=== PATIENT | male | born 1955 | race Caucasian/White ===

== ENCOUNTER 2016-12-21 17:41 | Emergency (ER) | payer BC ==
[~2016-12-21] VITALS: Ht 177.8 cm; Wt 101.5 kg
[~2016-12-21 17:41] MED LIST changes: -ASPI81TA28 PO; -CALC625T13 PO; -CIPR-255 PO; -MELO15TA4 PO; -OMEP20TA PO; -OPTIRAY 320 IV PRN; -OXYC-57 PO; -OXYC1TAB3 PO; -SILD100T PO
[2016-12-21 17:45] VITALS: TEMP 37; Ht 177.8 cm; Wt 101.5 kg
[2016-12-21] MEDS ORDERED: SODIUM CHLORIDE 0.9% 1000ML 1,000 ML IV STA (17:58)
[2016-12-21 18:08] LABS: BASO % 0.7 %; BASO ABS # 0.06 K/uL (0-0.2); COMPLETE YES; EOS % 5.1 %; HEMATOCRIT 44.4 % (42-52); IG% 0.1 %; LYMPH ABS # 2.33 K/uL (1.2-3.4); MEAN CORPUSCULAR HEMOGLOBIN 30.8 pg (25-34); MEAN CORPUSCULAR HGB CONC 35.8 g/dl (32-36); MEAN PLATELET VOLUME 9.5 fL (7.4-10.4); MONO % 8.8 %; NEUT % 56.3 %; PLATELET COUNT 211 K/uL (130-400); RED BLOOD COUNT 5.16 M/uL (4.7-6.1); WHITE BLOOD COUNT 8.04 K/uL (4.8-10.8)
[2016-12-21] MEDS ORDERED: OMEP20TA PO (18:20)
[2016-12-21] MEDS ORDERED: SILD100T PO (18:20)
[2016-12-21] MEDS ORDERED: CALC625T13 PO (18:20)
[2016-12-21] MEDS ORDERED: ASPI81TA28 PO (18:20)
[2016-12-21] MEDS ORDERED: MELO15TA4 PO (18:20)
[2016-12-21 18:26] LABS: ALT/SGPT 53 U/L (12-78); BLOOD UREA NITROGEN 20 mg/dl (7-18); BUN/CREATININE RATIO 14.4 (10-20); C-REACTIVE PROTEIN < 0.29 mg/dl (0-0.29); CALCIUM 9.5 mg/dl (8.5-10.1); CARBON DIOXIDE 25 mmol/L (21-32); CHLORIDE 106 mmol/L (98-107); GLUCOSE 92 mg/dl (70-99); POTASSIUM 4.1 mmol/L (3.5-5.1); SODIUM 140 mmol/L (136-145)
[2016-12-21 18:27] LABS: URINE APPEARANCE CLEAR (CLEAR); URINE BILIRUBIN NEG (NEG); URINE COLOR YELLOW; URINE EPITHELIAL CELL AUTO 0-5 /lpf (0-5); URINE NITRITE NEG (NEG); URINE SPECIFIC GRAVITY > 1.045 (1.000-1.030); UROBILINOGEN NEG (NEG); ZZUR CULT IF INDIC CLEAN CATCH NO
[2016-12-21 18:29] LABS: ALKALINE PHOSPHATASE 65 U/L (45-117); AST/SGOT 43 U/L (15-37)
[2016-12-21 18:59] LABS: MANUAL MICROSCOPIC REQUIRED? NO; REVIEW REQ? NO
--- NOTE | 2016-12-21 19:09 | DIAGNOSTIC IMAGING REPORT ---
CT SCAN OF THE LUMBAR SPINE WITHOUT IV CONTRAST CLINICAL HISTORY: Back pain and right lower extremity radiculopathy. COMPARISON STUDY: Abdominal CT performed the same day 12/21/2016. TECHNIQUE: CT scan of the lumbar spine is performed from the lower thoracic spine to the sacrum. Images are reviewed in the axial, sagittal, and coronal planes. IV contrast was not administered for this examination. FINDINGS: The skeletal structures are well mineralized. There is no evidence of fracture or malalignment. Vertebral body height and alignment are preserved throughout the lumbar spine. No lytic or blastic lesions are seen. The transverse and spinous processes are intact. There is no evidence of spondylolysis. Mild to moderate facet arthropathy is seen from L4 to S1. Tiny anterior osteophytes are seen throughout. There is advanced degenerative disc space narrowing at L5-S1 with associated endplate sclerosis. A small posterior disc osteophyte complex is identified at this level eccentric to the left. This likely causes left-sided subarticular stenosis. Mild degenerative disc space narrowing is seen at the remaining lumbar levels. A disc herniation is suspected at L3-L4 with a superiorly extruded fragment. This likely contributes to significant acquired compromise of the central canal. A small posterior disc bulge is suggested at L4-L5. The visualized sacrum and bony pelvis appear intact. The paraspinous soft tissues are normal as imaged. A cyst is partially noted in the lower pole of the right kidney. No retroperitoneal lymphadenopathy is seen. See report of abdominal CT performed the same day for detailed intra-abdominal findings. IMPRESSION: 1. No acute bony abnormality is seen involving the lumbar spine. 2. A disc herniation is suspected at L3-L4 with a superiorly extruded fragment. This contributes to acquired compromise of the central canal. 3. Degenerative change at additional levels as above. Dictated: 12/21/2016 6:26 PM Transcribed: 12/21/2016 7:08 PM ARTUR_Shima Electronically signed by: Abdullahi Carlton M.D. 12/21/2016 7:13 PM Dictated Date/Time: 12/21/2016 6:26 PM
[2016-12-21] MEDS ORDERED: CIPR-255 PO (20:35)
[2016-12-21] MEDS ORDERED: OXYC-57 PO (20:35)
--- NOTE | 2016-12-21 20:37 | EMERGENCY ROOM VISIT NOTE ---
History Report prepared by Tati: Alise Baron Under the Supervision of: Dr. Solomon Rose D.O. First contact with patient: 17:49 Chief Complaint: FLANK PAIN Stated Complaint: PAIN ON R SIDE History of Present Illness The patient is a 61 year old male who presents to the Emergency Room with complaints of persistent right lower quadrant abdominal pain which started 2 weeks ago. The patient currently rates his discomfort as a 9/10. He was in the hospital today for a CT and came to the ED after he was told there was a stone in his appendix. He reports that his pain has been worse in the last 2 or 3 days. He states the pain sometimes spreads down to the front of his leg. He mentions that this could be because he has been walking abnormally because the pain worsens when he walks. The patient also states that going up or down stairs is very difficult for him due to the pain. When the doctor palpated the flank earlier today, he experienced a lot of pain. He also reports that for month he had pain down the back of his legs every time he got up and walked. He denies any injury. Source of History: patient Onset: 2 weeks Position: abdomen (RLQ) Symptom Intensity: 9/10 Timing: other (persistent) Modifying Factors (Worsening): other (walking) Note: Pt reports right leg pain. Review of Systems See HPI for pertinent positives & negatives. A total of 10 systems reviewed and were otherwise negative. Past Medical & Surgical Medical Problems: (1) No Known Active Medical Problems Family History Patient reports no known family medical history. Social History Smoking Status: Never Smoker Marital Status: Housing Status: lives with family Occupation Status: employed Current/Historical Medications Scheduled Aspirin (Aspirin Ec), 81 MG PO DAILY Calcium Polycarbophil (Fiber Tabs), 625 MG PO DAILY Ciprofloxacin Hcl (Cipro), 500 MG PO BID Fish Oil ([place]-3), 1 CAP PO DAILY Levothyroxine Sodium (Synthroid), 100 MCG PO DAILY Lisinopril (Zestril), 10 MG PO DAILY Meloxicam (Mobic), 15 MG PO DAILY Multivitamin (Multivitamin), 1 TAB PO DAILY Omeprazole (Omeprazole), 20 MG PO DAILY Scheduled PRN Oxycodone/Acetaminophen 5MG/325MG (Percocet 5MG/325MG), 1 TAB PO Q6H PRN for Pain Sildenafil Citrate (Viagra), 50-100 MG PO UD PRN for Prior To [place] Allergies Coded Allergies: No Known Allergies (Unverified , 05/14/14) Physical Exam Vital Signs Date Time Temp Pulse Resp B/P Pulse Ox O2 Delivery O2 Flow Rate FiO2 12/21/16 19:45 74 18 151/107 95 Room Air 12/21/16 17:45 37.0 89 18 150/91 94 Room Air Physical Exam CONSTITUTIONAL/VITAL SIGNS: Reviewed / noted above. GENERAL: Non-toxic in appearance. INTEGUMENTARY: Warm, dry, and [place]. HEAD: Normocephalic. EYES: without scleral icterus or trauma. ENT/OROPHARYNX: clear and moist. LYMPHADENOPATHY/NECK: Is supple without lymphadenopathy or meningismus. RESPIRATORY: Lungs clear and equal. CARDIOVASCULAR: Regular rate and rhythm. GI/ABDOMEN: Soft. Mild tenderness to RLQ. No organomegaly or pulsatile mass. No rebound or guarding. Normal bowel sounds. EXTREMITIES: Warm and well perfused. BACK: No CVA tenderness. NEUROLOGICAL: Intact without focal deficits. PSYCHIATRIC: normal affect. MUSCULOSKELETAL: Normally developed with good muscle tone. Medical Decision & Procedures ER Provider Diagnostic Interpretation: Radiology results as stated below per my review and radiologist interpretation: CT SCAN OF THE LUMBAR SPINE WITHOUT IV CONTRAST CLINICAL HISTORY: Back pain and right lower extremity radiculopathy. COMPARISON STUDY: Abdominal CT performed the same day 12/21/2016. TECHNIQUE: CT scan of the lumbar spine is performed from the lower thoracic spine to the sacrum. Images are reviewed in the axial, sagittal, and coronal planes. IV contrast was not administered for this examination. FINDINGS: The skeletal structures are well mineralized. There is no evidence of fracture or malalignment. Vertebral body height and alignment are preserved throughout the lumbar spine. No lytic or blastic lesions are seen. The transverse and spinous processes are intact. There is no evidence of spondylolysis. Mild to moderate facet arthropathy is seen from L4 to S1. Tiny anterior osteophytes are seen throughout. There is advanced degenerative disc space narrowing at L5-S1 with associated endplate sclerosis. A small posterior disc osteophyte complex is identified at this level eccentric to the left. This likely causes left-sided subarticular stenosis. Mild degenerative disc space narrowing is seen at the remaining lumbar levels. A disc herniation is suspected at L3-L4 with a superiorly extruded fragment. This likely contributes to significant acquired compromise of the central canal. A small posterior disc bulge is suggested at L4-L5. The visualized sacrum and bony pelvis appear intact. The paraspinous soft tissues are normal as imaged. A cyst is partially noted in the lower pole of the right kidney. No retroperitoneal lymphadenopathy is seen. See report of abdominal CT performed the same day for detailed intra-abdominal findings. IMPRESSION: 1. No acute bony abnormality is seen involving the lumbar spine. 2. A disc herniation is suspected at L3-L4 with a superiorly extruded fragment. This contributes to acquired compromise of the central canal. 3. Degenerative change at additional levels as above. Dictated: 12/21/2016 6:26 PM Transcribed: 12/21/2016 7:08 PM Robert Electronically signed by: Abdullahi Carlton M.D. 12/21/2016 7:13 PM Dictated Date/Time: 12/21/2016 6:26 PM Laboratory Results 12/21/16 18:00 Red Blood Count 5.16, Mean Corpuscular Volume 86.0, Mean Corpuscular Hemoglobin 30.8, Mean Corpuscular Hemoglobin Concent 35.8, Mean Platelet Volume 9.5, Neutrophils (%) (Auto) 56.3, Lymphocytes (%) (Auto) 29.0, Monocytes (%) (Auto) 8.8, Eosinophils (%) (Auto) 5.1, Basophils (%) (Auto) 0.7, Neutrophils # (Auto) 4.52, Lymphocytes # (Auto) 2.33, Monocytes # (Auto) 0.71, Eosinophils # (Auto) 0.41, Basophils # (Auto) 0.06 12/21/16 18:00 Test 12/21/16 18:00 12/21/16 18:15 White Blood Count 8.04 K/uL (4.8-10.8) Red Blood Count 5.16 M/uL (4.7-6.1) Hemoglobin 15.9 g/dL (14.0-18.0) Hematocrit 44.4 % (42-52) Mean Corpuscular Volume 86.0 fL (80-100) Mean Corpuscular Hemoglobin 30.8 pg (25-34) Mean Corpuscular Hemoglobin Concent 35.8 g/dl (32-36) Platelet Count 211 K/uL (130-400) Mean Platelet Volume 9.5 fL (7.4-10.4) Neutrophils (%) (Auto) 56.3 % Lymphocytes (%) (Auto) 29.0 % Monocytes (%) (Auto) 8.8 % Eosinophils (%) (Auto) 5.1 % Basophils (%) (Auto) 0.7 % Neutrophils # (Auto) 4.52 K/uL (1.4-6.5) Lymphocytes # (Auto) 2.33 K/uL (1.2-3.4) Monocytes # (Auto) 0.71 K/uL (0.11-0.59) Eosinophils # (Auto) 0.41 K/uL (0-0.5) Basophils # (Auto) 0.06 K/uL (0-0.2) RDW Standard Deviation 40.2 fL (36.4-46.3) RDW Coefficient of Variation 12.8 % (11.5-14.5) Immature Granulocyte % (Auto) 0.1 % Immature Granulocyte # (Auto) 0.01 K/uL (0.00-0.02) Erythrocyte Sedimentation Rate 14 mm/hr (0-14) Anion Gap 9.0 mmol/L (3-11) Est Creatinine Clear Calc Drug Dose 64.5 ml/min Estimated GFR () 61.5 Estimated GFR (Non- 53.1 BUN/Creatinine Ratio 14.4 (10-20) Calcium Level 9.5 mg/dl (8.5-10.1) Total Bilirubin 1.5 mg/dl (0.2-1) Direct Bilirubin 0.3 mg/dl (0-0.2) Aspartate Amino Transf (AST/SGOT) 43 U/L (15-37) Alanine Aminotransferase (ALT/SGPT) 53 U/L (12-78) Alkaline Phosphatase 65 U/L (45-117) C-Reactive Protein < 0.29 mg/dl (0-0.29) Total Protein 8.2 gm/dl (6.4-8.2) Albumin 4.1 gm/dl (3.4-5.0) Lipase 199 U/L (73-393) Urine Color YELLOW Urine Appearance CLEAR (CLEAR) Urine pH 5.0 (4.5-7.5) Urine Specific [place] > 1.045 (1.000-1.030) Urine Protein NEG (NEG) Urine Glucose (UA) NEG (NEG) Urine Ketones NEG (NEG) Urine Occult Blood NEG (NEG) Urine Nitrite NEG (NEG) Urine Bilirubin NEG (NEG) Urine Urobilinogen NEG (NEG) Urine Leukocyte Esterase NEG (NEG) Urine WBC (Auto) 0 /hpf (0-5) Urine RBC (Auto) 0-4 /hpf (0-4) Urine Hyaline Casts (Auto) 0 /lpf (0-5) Urine Epithelial Cells (Auto) 0-5 /lpf (0-5) Urine Bacteria (Auto) NEG (NEG) Laboratory results as stated above per my review. Medications Administered Medications (Trade) Dose Ordered Sig/Maritza Route Start Time Stop Time Status Last Admin Dose Admin Sodium Chloride (Nss 1000ml) 1,000 ml @ 999 mls/hr Q1H1M STAT IV 12/21/16 17:58 12/21/16 18:58 DC 12/21/16 17:58 999 MLS/HR ED Course 1750: Previous medical records were reviewed. The patient was evaluated in room C2. A complete history and physical examination was performed. 1758: NSS 1000 ml @ 999 mls/hr IV. 1805: I discussed the patient's case with Dr. Kenny, General Surgery, [facility]. He recommends checking the white blood cell count and considering outpatient antibiotics. 2037: I reevaluated the patient. He is resting comfortably. I discussed the results and treatment plan with him. He verbalized complete understanding and agreement. He will be discharged home. Medical Decision Differential considered: pancreatitis, hepatitis, or acute cholecystitis, AAA, UTI, pyelonephritis, kidney stones, appendicitis, diverticulitis, shingles, bowel obstruction mesenteric ischemia, intussusception,hernia, testicular torsion. This is a 61-year-old male who presents to the ED with a chief complaint of flank abdominal pain for the past couple of weeks. He states over the past several days it has been worse. The patient reports that he had an outpatient CT scan today and was sent to the ED after this. CT scan noted a thickened appendix base and contrast versus appendicolith in the appendix. There are no other significant findings on the CT scan. The patient reports that he had some tenderness to palpation there earlier in the day when seen by the PCP. On my exam he has some mild tenderness in the right lower quadrant but there is also some mild tenderness to other areas of the abdomen. He reports that sometimes the pain radiates down the front of the right leg. He has no other significant complaints at this time. He does report increased pain with ambulation and certain movements/activities. His white blood cell count was normal. He is not anemic. Sedimentation rate and CRP were normal. Lipase is normal. Urine did not show infection. CT scan of the lumbar spine reveals an L3-L4 disc herniation with central canal stenosis. The patient was told results the test. He was felt to be stable for discharge. I did speak with Dr. Villa about the patient/abd. CT report, He did suggest placing the patient on Cipro. Outpatient follow-up recommended. [place] Drug Monitoring Program Search Results: no issues identified Consults Time Called: 1802 Consulting Physician: Dr. Kenny - General Surgery, [facility] Returned Call: [phone] We discussed the patient's case. He recommends checking the white blood cell count and considering outpatient antibiotics. Impression Primary Impression: Abdominal pain Additional Impression: Herniated lumbar intervertebral disc Scribe Attestation The scribe's documentation has been prepared under my direction and personally reviewed by me in its entirety. I confirm that the note above accurately reflects all work, treatment, procedures, and medical decision making performed by me. Departure Information Dispostion Home / Self-Care Prescriptions Oxycodone/Acetaminophen 5MG/325MG (PERCOCET 5MG/325MG) Tab 1 TAB PO Q6H Y for Pain, #20 TAB Prov: Solomon Rose D.O. 12/21/16 Ciprofloxacin Hcl (CIPRO) 500 Mg Tab 500 MG PO BID, #14 TAB Prov: Solomon Rose D.O. 12/21/16 Referrals Kedar Kenny M.D. Patient Instructions Abdominal Pain, My [facility] Additional Instructions Follow-up with your PCP and surgery, Dr. Kenny for recheck. Cipro as prescribed. Percocet as prescribed. No driving within 6 hours of use. Do not take additional Tylenol while taking Percocet. Problem Qualifiers
[2016-12-21] MEDS ORDERED: KETOROLAC TROMETHAMINE 30 MG/ML VIAL IV STA (20:43)
[2016-12-21] MEDS ORDERED: CIPROFLOXACIN 500 MG TAB PO STA (20:43)
[2016-12-21] MEDS ORDERED: PERCOCET HOME PACK PO ONE (20:45)
[2016-12-21 20:56] VITALS: BP 148/87; PULSE 79; O2SAT 98
[2016-12-28] MEDS ORDERED: OXYC1TAB3 PO (14:11)
== END 2016-12-21 21:00 | disposition home or self-care (01) ==
LOC: C.EDB 17:41 → C.EDC 21:00
DX: R10.30 Lower abdominal pain, unspecified (principal); M51.26 Other intervertebral disc displacement, lumbar region; Z79.82 Long term (current) use of aspirin; Z79.899 Other long term (current) drug therapy

== ENCOUNTER → 2016-12-21 | Outpatient (CLI) | payer BC ==
[~2016-12-21] MED LIST: ASPI81TA28 PO; CALC625T13 PO; CIPR-255 PO; LEVO100T PO; LISI-461 PO; MELO15TA3 PO; MELO15TA4 PO; MULT-506 PO; OMEG10007 PO; OMEP20TA PO; OPTIRAY 320 IV PRN; OXYC-57 PO; OXYC1TAB3 PO; PRLSR20 PO; SILD100T PO
--- NOTE | 2016-12-21 15:54 | DIAGNOSTIC IMAGING REPORT ---
CT ABD/PELVIS IV AND ORAL CONT CLINICAL HISTORY: Right lower quadrant/right groin pain. COMPARISON STUDY: None. TECHNIQUE: Following the IV administration of 118 mL of Optiray-320, CT scan of the abdomen and pelvis was performed from the lung bases to the proximal femurs. Images are reviewed in the axial, sagittal, and coronal planes. IV contrast was administered without complication. CT DOSE: 843.85 mGy.cm FINDINGS: Lower chest: There is a 5 mm right lower lobe pulmonary nodule. This contains a punctate calcification. There is a 16 mm opacity within the lingula, possibly representing focal atelectatic changes of a neoplasm could appear similar. A three-month follow-up CT scan is recommended. Liver: There is hepatic steatosis. No focal hepatic masses are visualized. Gallbladder: Unremarkable. Spleen: Normal in size and attenuation. Pancreas: Unremarkable. Adrenal glands: Unremarkable. Kidneys: The 25 mm lower pole right renal cyst. There is a 2 mm left parapelvic cyst. There is no hydronephrosis. Bowel: Is a fat-containing umbilical hernia. There are no transition zones indicate bowel obstruction. There is a thickened appendiceal base which contains contrast versus an appendicolith. There are no periappendiceal inflammatory changes. There is colonic diverticulosis. Mild sigmoid wall thickening is likely secondary to peridiverticular muscular hypertrophy. There is no infiltration of the peridiverticular fat. Peritoneum: There is no intraperitoneal free air or abdominal ascites. Vasculature: The abdominal aorta is normal in course and caliber. Adenopathy: None. Pelvic viscera: The bladder, and pelvic viscera are unremarkable. Skeletal structures: No destructive osseous lesions are seen. IMPRESSION: 1. No evidence of bowel obstruction. No evidence of free air 2. Colonic diverticulosis. Sigmoid wall thickening likely secondary to peridiverticular muscular hypertrophy. No evidence of acute diverticulitis 3. Moderate thickening of the appendiceal base but no periappendiceal inflammatory changes. Clinical correlation is advocated 4. Fat-containing umbilical hernia 5. Hepatic steatosis 6. 5 mm right lower lobe pulmonary nodule, an indeterminate 16 mm opacity within the lingula. A three-month follow-up chest CT scan is recommended. Electronically signed by: Jace Keating M.D. 12/21/2016 3:53 PM Dictated Date/Time: 12/21/2016 3:42 PM
--- NOTE | 2016-12-22 06:47 | CONSULTATION REPORT ---
DATE OF CONSULTATION: 12/21/2016 Consultation by phone on 12/21/2016 at approximately 5:15 in the afternoon. SUMMARY: I was called by Dr. Camarillo regarding a patient who had pain in the right groin area radiating down to his right leg. It had been going on for approximately 2-1/2 weeks. He had no GI symptoms. CAT scan was obtained which showed possibility of either appendicolith and contrast in the proximal appendix, but there were no inflammatory changes. At this point, I asked Dr. Camarillo for the patient's vitals which were normal. I asked for his white count, it had not been obtained yet. There was no acute process going on, on a physical basis except what he described. My recommendation to Dr. Camarillo was to proceed with his workup for possibility of some radiculopathy in the lower back and he would obtain followup, to obtain a white count and if that was normal, certainly send the patient home. I would keep him on some Cipro for approximately 1 week just in anticipation possibility of underlying inflammatory process that could develop although this is unlikely that is appendicitis and we will see the patient in the office.
== END | disposition home or self-care (01) ==
LOC: C.CTS 13:21
PROVIDERS: ATTEND Family Medicine
DX: R10.31 Right lower quadrant pain (principal); K57.30 Diverticulosis of large intestine without perforation or abscess without bleeding; R93.5 Abnormal findings on diagnostic imaging of other abdominal regions, including retroperitoneum; K42.9 Umbilical hernia without obstruction or gangrene; K76.0 Fatty (change of) liver, not elsewhere classified; R91.1 Solitary pulmonary nodule

== ENCOUNTER 2016-12-23 18:18 | Emergency (ER) | payer BC ==
[~2016-12-23] VITALS: Ht 177.8 cm; Wt 101.0 kg
[~2016-12-23 18:18] MED LIST changes: +ASPI81TA28 PO; +CALC625T13 PO; +CIPR-255 PO; -MELO15TA3 PO; +MELO15TA4 PO; +OMEP20TA PO; +OXYC-57 PO; -PRLSR20 PO; +SILD100T PO
[2016-12-23 18:22] VITALS: TEMP 37; Ht 177.8 cm; Wt 101.0 kg
[2016-12-23] MEDS ORDERED: ONDANSETRON INJ 2 MG/ML 2 ML VIAL IV STA (19:14)
[2016-12-23] MEDS ORDERED: MoRPHine SULFATE 10 MG/ML CARP/VIAL IV STA ×2 (19:14→21:07)
[2016-12-23] MEDS ORDERED: OPTIRAY 320 IV PRN (19:15)
[2016-12-23 19:36] LABS: BASO % 0.5 %; BASO ABS # 0.05 K/uL (0-0.2); COMPLETE YES; EOS % 6.8 %; HEMATOCRIT 44.9 % (42-52); IG% 0.3 %; LYMPH % 27.4 %; LYMPH ABS # 2.59 K/uL (1.2-3.4); MEAN CELL VOLUME 86.8 fL (80-100); MEAN CORPUSCULAR HEMOGLOBIN 30.2 pg (25-34); MEAN CORPUSCULAR HGB CONC 34.7 g/dl (32-36); MEAN PLATELET VOLUME 10.1 fL (7.4-10.4); MONO % 8.9 %; NEUT % 56.1 %; PLATELET COUNT 227 K/uL (130-400); RED BLOOD COUNT 5.17 M/uL (4.7-6.1); WHITE BLOOD COUNT 9.46 K/uL (4.8-10.8)
[2016-12-23] MEDS ORDERED: LORAZEPAM 0.5 MG TAB SL STA (19:43)
[2016-12-23 19:55] LABS: URINE APPEARANCE CLEAR (CLEAR); URINE BILIRUBIN NEG (NEG); URINE COLOR DK YELLOW; URINE EPITHELIAL CELL AUTO 0-5 /lpf (0-5); URINE NITRITE NEG (NEG); URINE PH 5.5 (4.5-7.5); URINE SPECIFIC GRAVITY 1.026 (1.000-1.030); UROBILINOGEN NEG (NEG); ZZUR CULT IF INDIC CLEAN CATCH NO
[2016-12-23 19:58] LABS: MANUAL MICROSCOPIC REQUIRED? NO; REVIEW REQ? NO
[2016-12-23 20:01] LABS: BUN/CREATININE RATIO 18.8 (10-20); CALCIUM 9.4 mg/dl (8.5-10.1); CREATININE 1.5 mg/dl (0.60-1.40); POTASSIUM 4.2 mmol/L (3.5-5.1)
--- NOTE | 2016-12-23 21:30 | DIAGNOSTIC IMAGING REPORT ---
LUMBAR SPINE MRI HISTORY: lower back pain going into groin TECHNIQUE: Multiplanar multisequence MRI of the lumbar spine was performed without the use of contrast. COMPARISON: Lumbar spine CT 12/21/2016. FINDINGS: For the purpose of the report the L5-S1 disc space will be located on axial image 27 of 30. Alignment and curvature intact. No fracture or subluxation. The conus terminates at the L1 level. There is mild disc space narrowing desiccation at L2-L3, L3-L4, and L4-L5. Moderate to severe disc space narrowing with partial fusion at L5-S1. Moderate facet degenerative changes within the mid to lower lumbar spine with associated osteophytes and small amount of fluid within the facets. Bilateral renal T2 hyperintense, T1 hypointense lesions with the largest on the right measuring 2.6 cm. These likely represent cysts. L1-L2: No significant central canal or neural foraminal narrowing. L2-L3: Small broad-based posterior disc bulge without significant central canal or neural foraminal narrowing. L3-L4: Broad-based posterior disc bulge with an associated central/right paracentral disc extrusion. This disc extrusion demonstrates subligamentous migration superiorly as well as extending into the right neural foramen. This compresses the exiting right L3 nerve root as well as the transiting right L4 nerve root. In conjunction with the disc bulge and facet hypertrophy this results in moderate to severe central canal narrowing with the central canal measuring 6 mm in AP diameter. There is severe right-sided neural foraminal narrowing due to the disc extrusion. Mild left-sided neural foraminal narrowing. L4-L5: Tiny broad-based posterior disc bulge with ligamentum and facet hypertrophy resulting in mild central canal and mild bilateral neural foraminal narrowing. L5-S1: Small focal central disc protrusion demonstrating inferior subligamentous migration. This does not result significant central canal narrowing. There is mild left-sided neural foraminal narrowing due to the facet hypertrophy. IMPRESSION: 1. Broad-based posterior disc bulge at L3-L4 with an associated central/right paracentral disc extrusion. This disc extrusion demonstrates subligamentous migration superiorly as well as extending into the right neural foramen. This compresses the exiting right L3 nerve root as well as the transiting right L4 nerve root. There is also moderate to severe central canal narrowing, severe right-sided neural foraminal narrowing, and mild left-sided neural foraminal narrowing. 2. Small focal central disc protrusion at L5-S1 demonstrating inferior subligamentous migration. This does not result significant central canal narrowing. There is mild left-sided neural foraminal narrowing due to the facet hypertrophy. Electronically signed by: Rajesh Johnson M.D. 12/23/2016 9:28 PM Dictated Date/Time: 12/23/2016 9:18 PM
--- NOTE | 2016-12-23 22:01 | DIAGNOSTIC IMAGING REPORT ---
ABDOMEN AND PELVIS CT WITH IV AND ORAL CONTRAST CT DOSE: 787.45 mGy.cm HISTORY: Right lower quadrant abdominal pain. TECHNIQUE: Multiaxial CT images of the abdomen and pelvis were performed following the use of intravenous and oral contrast. COMPARISON STUDY: Abdomen and pelvis CT 12/21/2016. FINDINGS: Small focal patchy airspace opacity within the lingula has slightly increased in size. This measures 2.4 cm. A 5 mm right lower lobe pulmonary nodule is again noted. No pneumoperitoneum. No pneumatosis. Small fat-containing umbilical hernia. The gallbladder, pancreas, spleen, and adrenal glands are unremarkable. No renal stones or hydronephrosis. Bilateral renal hypodense lesions remain unchanged. The largest within the lower pole the right kidney measures 2.6 cm and is consistent with a cyst. No retroperitoneal lymphadenopathy. Hepatic steatosis. The bladder is unremarkable. Normal caliber appendix. Hyperdense focus at the proximal appendix may represent old barium contrast versus an appendicolith. This remains unchanged. Colonic diverticulosis. Thickening of the sigmoid colon favors muscular hypertrophy. This remains unchanged. No pericolonic fat stranding at this time to suggest an acute process. No bowel wall thickening or obstruction. IMPRESSION: 1. Increase in size in the 2.4 cm focal airspace opacity within the lingula. Therefore, this favors a developing pneumonia. [address] follow-up is recommended to ensure resolution. 2. Otherwise, no significant change compared to the prior study 3. Colonic diverticulosis. 4. Hepatic steatosis. 5. Focal hyperdensity at the base of the appendix may be due to old barium or an appendicolith. No evidence for acute appendicitis. 6. Small fat-containing umbilical hernia. 7. A 5 mm nodule within the right lower lobe. Please refer to the chart below for recommended follow-up. Please refer to below summary of Fleischner criteria recommendations for follow-up of incidental CT nodules (Gabbi Dowd, Guidelines for management of small pulmonary nodules detected on CT scans: A statement from the Fleischner Society, Radiology 237: [phone].) Low Risk Patient: Minimal or no smoking or other known risk factors for malignancy <=4 mm: No follow-up needed. >4-6 mm: Initial follow-up CT at 12 months; if unchanged, no further follow-up. >6-8 mm: Initial follow-up CT at 6-12 months then at 18-24 months if no change. >8 mm: Follow-up CT at \R\3, 9, 24 months, or PET and/or biopsy. High Risk Patient: History of smoking or other known risk factors <=4 mm: Follow-up at 12 months; if unchanged, no further follow-up. >4-6 mm: Initial follow-up CT at 6-12 months then at 18-24 months if no change. >6-8 mm: Initial follow-up CT at 3-6 months then at 9-12 and 24 months if no change. >8 mm: Same as low risk patient. Note: Nodule size measured as average of length and width. Ground glass or partly solid nodules may require longer follow-up to exclude indolent adenocarcinoma. Electronically signed by: Rajesh Johnson M.D. 12/23/2016 10:00 PM Dictated Date/Time: 12/23/2016 9:50 PM
[2016-12-23] MEDS ORDERED: OXYCODONE IR HOME PACK PO ONE (22:45)
[2016-12-23] MEDS ORDERED: OXYC1TAB3 PO (22:48)
[2016-12-23 22:57] VITALS: BP 153/93; PULSE 81; O2SAT 96
--- NOTE | 2016-12-24 00:21 | EMERGENCY ROOM VISIT NOTE ---
History Report prepared by Tati: Kayy Brooks Under the Supervision of: Dr. Beny Burgos D.O. First contact with patient: 18:48 Chief Complaint: FLANK PAIN Stated Complaint: PAIN IN R SIDE DOWN LEG, REFERRED BY PA History of Present Illness The patient is a 61 year old male who presents to the Emergency Room with complaints of worsening right hip, groin, and thigh pain that started two weeks ago. He states that his right leg feels stiff and full like after previous shoulder surgeries. The pain got more severe over the last three days. The patient states that he is unable to lift his right leg secondary to pain. Additionally, he is experiencing numbness and soreness throughout his entire right leg. The patient denies numbness in his groin and urinary symptoms. He adds that he has been experiencing diarrhea ever since he received the dye for the CT scans, but otherwise he has not had any issues moving his bowels. He had an outpatient CT scan of his abdomen done three days ago, which was unremarkable with the exception of possible inflammation at the tip of the appendix. He was started on antibiotics and pain medicine by general surgery. The patient was also seen in the ED 2 days ago and had a CT scan of his lumbar spine done, which revealed a herniated disc at L3-L4. The patient called his PCP this morning to discuss his symptoms and they recommended that he go to the [facility] walk-in clinic. At the clinic, the patient experienced sharp pain in his epigastric region with palpation, so they recommended that he come back into the ED for further evaluation of his gallbladder and appendix. Source of History: patient Onset: two weeks ago Position: leg (right) Quality: other (right hip, groin, and thigh pain) Timing: worsening Associated Symptoms: + diarrhea, + numbness (throughout entire right leg), No urinary symptoms Note: no groin numbness Review of Systems See HPI for pertinent positives & negatives. A total of 10 systems reviewed and were otherwise negative. Past Medical & Surgical Medical Problems: (1) Hypertension (2) Tuberculosis Family History Cancer Diabetes mellitus Heart disease Hypertension Social History Smoking Status: Never Smoker Marital Status: Housing Status: lives with family Occupation Status: employed Current/Historical Medications Scheduled Aspirin (Aspirin Ec), 81 MG PO DAILY Calcium Polycarbophil (Fiber Tabs), 625 MG PO DAILY Ciprofloxacin Hcl (Cipro), 500 MG PO BID Fish Oil ([place]-3), 1 CAP PO DAILY Levothyroxine Sodium (Synthroid), 100 MCG PO DAILY Lisinopril (Zestril), 10 MG PO DAILY Meloxicam (Mobic), 15 MG PO DAILY Multivitamin (Multivitamin), 1 TAB PO DAILY Omeprazole (Omeprazole), 20 MG PO DAILY Scheduled PRN Oxycodone Immediate Rel Tab (Roxicodone Ir), 1-2 TAB PO Q4H PRN for Severe Pain Oxycodone/Acetaminophen 5MG/325MG (Percocet 5MG/325MG), 1 TAB PO Q6H PRN for Pain Sildenafil Citrate (Viagra), 50-100 MG PO UD PRN for Prior To [place] Allergies Coded Allergies: No Known Allergies (Unverified , 05/14/14) Physical Exam Vital Signs Date Time Temp Pulse Resp B/P Pulse Ox O2 Delivery O2 Flow Rate FiO2 12/23/16 22:57 81 18 153/93 96 12/23/16 21:06 97 20 144/100 96 Room Air 12/23/16 18:22 37.0 83 20 174/112 97 Room Air Physical Exam GENERAL: alert, sitting up in bed, disheveled, uncomfortable appearing, well nourished, no distress, non-toxic EYE EXAM: normal conjunctiva, PERRL and EOM's intact OROPHARYNX: no exudate, no erythema, lips, buccal mucosa, and tongue normal and mucous membranes are moist NECK: supple, no nuchal rigidity, no adenopathy, non-tender LUNGS: Clear to auscultation. Normal chest wall mechanics HEART: no murmurs, S1 normal and S2 normal ABDOMEN: abdomen soft, non-tender, normo-active bowel sounds, no masses, no rebound or guarding. BACK: Back is symmetrical on inspection, acute reproducible tenderness in lower lumbar spine tracking to right gluteus, and there is no deformity, no CVA tenderness. SKIN: no rashes and no bruising UPPER EXTREMITIES: upper extremities are grossly normal. LOWER EXTREMITIES: No pitting edema, flexion/extension of hip, knee, ankle, and EHL 5/5 bilaterally, gross sensations intact, patellar and Achilles reflexes 2/ 4. Significant pain with flexion of the right hip. NEURO EXAM: Normal sensorium, cranial nerves II-XII grossly intact, normal speech, no gross weakness of arms Medical Decision & Procedures ER Provider Diagnostic Interpretation: CT and MRI results have been interpreted by the radiologist and reviewed by me. ABDOMEN AND PELVIS CT WITH IV AND ORAL CONTRAST IMPRESSION: 1. Increase in size in the 2.4 cm focal airspace opacity within the lingula. Therefore, this favors a developing pneumonia. [address] follow-up is recommended to ensure resolution. 2. Otherwise, no significant change compared to the prior study 3. Colonic diverticulosis. 4. Hepatic steatosis. 5. Focal hyperdensity at the base of the appendix may be due to old barium or an appendicolith. No evidence for acute appendicitis. 6. Small fat-containing umbilical hernia. 7. A 5 mm nodule within the right lower lobe. Please refer to the chart below for recommended follow-up. Please refer to below summary of Fleischner criteria recommendations for follow-up of incidental CT nodules (Gabbi Dowd, Guidelines for management of small pulmonary nodules detected on CT scans: A statement from the Fleischner Society, Radiology 237: [phone].) Low Risk Patient: Minimal or no smoking or other known risk factors for malignancy <=4 mm: No follow-up needed. >4-6 mm: Initial follow-up CT at 12 months; if unchanged, no further follow-up. >6-8 mm: Initial follow-up CT at 6-12 months then at 18-24 months if no change. >8 mm: Follow-up CT at \R\3, 9, 24 months, or PET and/or biopsy. High Risk Patient: History of smoking or other known risk factors <=4 mm: Follow-up at 12 months; if unchanged, no further follow-up. >4-6 mm: Initial follow-up CT at 6-12 months then at 18-24 months if no change. >6-8 mm: Initial follow-up CT at 3-6 months then at 9-12 and 24 months if no change. >8 mm: Same as low risk patient. Note: Nodule size measured as average of length and width. Ground glass or partly solid nodules may require longer follow-up to exclude indolent adenocarcinoma. Electronically signed by: Rajesh Johnson M.D. 12/23/2016 10:00 PM Dictated Date/Time: 12/23/2016 9:50 PM LUMBAR SPINE MRI IMPRESSION: 1. Broad-based posterior disc bulge at L3-L4 with an associated central/right paracentral disc extrusion. This disc extrusion demonstrates subligamentous migration superiorly as well as extending into the right neural foramen. This compresses the exiting right L3 nerve root as well as the transiting right L4 nerve root. There is also moderate to severe central canal narrowing, severe right-sided neural foraminal narrowing, and mild left-sided neural foraminal narrowing. 2. Small focal central disc protrusion at L5-S1 demonstrating inferior subligamentous migration. This does not result significant central canal narrowing. There is mild left-sided neural foraminal narrowing due to the facet hypertrophy. Electronically signed by: Rajesh Johnson M.D. 12/23/2016 9:28 PM Dictated Date/Time: 12/23/2016 9:18 PM Laboratory Results 12/23/16 19:15 Red Blood Count 5.17, Mean Corpuscular Volume 86.8, Mean Corpuscular Hemoglobin 30.2, Mean Corpuscular Hemoglobin Concent 34.7, Mean Platelet Volume 10.1, Neutrophils (%) (Auto) 56.1, Lymphocytes (%) (Auto) 27.4, Monocytes (%) (Auto) 8.9, Eosinophils (%) (Auto) 6.8, Basophils (%) (Auto) 0.5, Neutrophils # (Auto) 5.31, Lymphocytes # (Auto) 2.59, Monocytes # (Auto) 0.84, Eosinophils # (Auto) 0.64, Basophils # (Auto) 0.05 12/23/16 19:15 Test 12/23/16 00:00 12/23/16 19:15 Urine Color DK YELLOW Urine Appearance CLEAR (CLEAR) Urine pH 5.5 (4.5-7.5) Urine Specific [place] 1.026 (1.000-1.030) Urine Protein TRACE (NEG) Urine Glucose (UA) NEG (NEG) Urine Ketones NEG (NEG) Urine Occult Blood NEG (NEG) Urine Nitrite NEG (NEG) Urine Bilirubin NEG (NEG) Urine Urobilinogen NEG (NEG) Urine Leukocyte Esterase NEG (NEG) Urine WBC (Auto) 1-5 /hpf (0-5) Urine RBC (Auto) 0-4 /hpf (0-4) Urine Hyaline Casts (Auto) 0 /lpf (0-5) Urine Epithelial Cells (Auto) 0-5 /lpf (0-5) Urine Bacteria (Auto) NEG (NEG) White Blood Count 9.46 K/uL (4.8-10.8) Red Blood Count 5.17 M/uL (4.7-6.1) Hemoglobin 15.6 g/dL (14.0-18.0) Hematocrit 44.9 % (42-52) Mean Corpuscular Volume 86.8 fL (80-100) Mean Corpuscular Hemoglobin 30.2 pg (25-34) Mean Corpuscular Hemoglobin Concent 34.7 g/dl (32-36) Platelet Count 227 K/uL (130-400) Mean Platelet Volume 10.1 fL (7.4-10.4) Neutrophils (%) (Auto) 56.1 % Lymphocytes (%) (Auto) 27.4 % Monocytes (%) (Auto) 8.9 % Eosinophils (%) (Auto) 6.8 % Basophils (%) (Auto) 0.5 % Neutrophils # (Auto) 5.31 K/uL (1.4-6.5) Lymphocytes # (Auto) 2.59 K/uL (1.2-3.4) Monocytes # (Auto) 0.84 K/uL (0.11-0.59) Eosinophils # (Auto) 0.64 K/uL (0-0.5) Basophils # (Auto) 0.05 K/uL (0-0.2) RDW Standard Deviation 40.4 fL (36.4-46.3) RDW Coefficient of Variation 12.6 % (11.5-14.5) Immature Granulocyte % (Auto) 0.3 % Immature Granulocyte # (Auto) 0.03 K/uL (0.00-0.02) Anion Gap 10.0 mmol/L (3-11) Est Creatinine Clear Calc Drug Dose 60.0 ml/min Estimated GFR () 56.6 Estimated GFR (Non- 48.8 BUN/Creatinine Ratio 18.8 (10-20) Calcium Level 9.4 mg/dl (8.5-10.1) Total Bilirubin 1.5 mg/dl (0.2-1) Direct Bilirubin 0.3 mg/dl (0-0.2) Aspartate Amino Transf (AST/SGOT) 47 U/L (15-37) Alanine Aminotransferase (ALT/SGPT) 59 U/L (12-78) Alkaline Phosphatase 68 U/L (45-117) Total Protein 8.3 gm/dl (6.4-8.2) Albumin 3.9 gm/dl (3.4-5.0) Lipase 159 U/L (73-393) Laboratory results per my review. Medications Administered Medications (Trade) Dose Ordered Sig/Maritza Route Start Time Stop Time Status Last Admin Dose Admin Morphine Sulfate (MoRPHine SULFATE INJ) 6 mg NOW STAT IV 12/23/16 19:14 12/23/16 19:16 DC 12/23/16 19:31 6 MG Ondansetron HCl (Zofran Inj) 4 mg NOW STAT IV 12/23/16 19:14 12/23/16 19:16 DC 12/23/16 19:32 4 MG Lorazepam (Ativan Tab) 0.5 mg NOW STAT SL 12/23/16 19:43 12/23/16 19:44 DC 12/23/16 19:50 0.5 MG Morphine Sulfate (MoRPHine SULFATE INJ) 6 mg NOW STAT IV 12/23/16 21:07 12/23/16 21:08 DC 12/23/16 21:15 6 MG Oxycodone HCl (Roxicodone Immediate Rel 5MG Home Pack) 1 homepack UD ONCE PO 12/23/16 22:45 12/23/16 22:46 DC 12/23/16 22:57 1 HOMEPACK ED Course ED COURSE: Vital signs were reviewed and showed hypertension. The patients medical record was reviewed The above diagnostic studies were performed and reviewed. ED treatments and interventions as stated above. 1850: The patient was evaluated in room C7. A complete history and physical examination was performed. 1913: Ordered Zofran Inj 4 mg IV, Morphine Sulfate 6 mg IV 1942: Ordered Ativan Tab 0.5 mg SL 2106: Ordered Morphine Sulfate 6 mg IV 2229: I reviewed the patient's case with Dr. Smith - Orthopedic Surgery. He agrees with having the patient follow-up in the office and he will see him on Monday or Monday. 2232: Upon reevaluation, the patient is doing well. I offered admission, but the patient declined and said that he wants to go home. He denied any saddle paraesthesias and weakness in his leg. I discussed my findings with the patient and he understands and agrees with the treatment plan. Based on the patients age, coexisting illnesses, exam and lab findings the decision to treat as an outpatient was made. The patient remained stable while under my care. The patient appeared well at the time of discharge.' 2244: [facility] Medical Decision Differential diagnoses includes but is not limited to gastritis, peptic ulcer disease, GERD, gallbladder disease, pancreatitis, small bowel obstruction, acute coronary syndrome, pericarditis, ischemic bowel, irritable bowel disease, irritable bowel syndrome, appendicitis, diverticulitis, malignancy, hernia, urinary tract infection, torsion, perforation, trauma, infectious. Patient is a 61-year-old male who presents the ER for severe right hip/leg pain. He seen in the ER and his PCPs office for same symptoms. He has had previous CAT scan of his abdomen and lumbar spine. CT of the abdomen showed and abnormality within the appendix and was placed on Cipro and discharged. Along with two pulm nodules which the patient states he is following up with his primary care doctor in regards to as they are the ones that ordered the test originally. He returns tonight for worsening pain in his leg. He has no saddle paresthesias. No trouble moving his bowels or urinating. He denies any weakness in his leg but does note with excessive walking he starts to have extreme pain and has to sit down. He is completely neurologically intact on my exam. Reflexes are intact. MRI of his spine shows a large bulging disc. I do believe this is the cause of symptoms as it is in the correct distribution of the pain on his leg. I discussed the case with Dr. Smith from orthopedics following offering the patient admission but patient declined. Dr. smith agreed to see the patient early Monday. Patient was given oral narcotics. CT of his abdomen pelvis was repeated and was completely unremarkable for any pathology of the appendix. Bilirubin was slightly elevated at 1.[address] I did not pursue this any further especially since he has no pain in the right upper quadrant. I did update him in regards to the pulmonology nodule which he already knew about and is already having followed up by his PCP. The nodule in the lingula area appeared to grow slightly and was read by radiology as more of infectious in etiology. I rediscussed this with the patient and will not place him on any ABX as he has no cough, shortness of breath of chest pain. He is completely asymptomatic. I offered him steroids but he notes he has a previous exposure to TB and is not allowed to take them. Pt will see ortho on Monday if he has no change in his symptoms and already has follow up for the pulm nodules by PCP per patient. I recommended that he return to the ER for any numbness or weakness in his groin or new numbness/weakness in his leg, along with not able to urinate or move his bowels. Discussed with Pt concerning signs and symptoms to watch out for. Pt was instructed to follow up with their PCP and discussed with the patient their option to return to the ED at anytime for persistent or worsening symptoms. The appropriate anticipatory guidance and out-patient management, including indications for return to the emergency department, were explained at length to the patient and understood. Consults Time Called: 2224 Consulting Physician: Dr. Smith - Orthopedic Surgery Returned Call: [phone] I reviewed the patient's case with Dr. Smith - Orthopedic Surgery. He agrees with having the patient follow-up in the office and he will see him on Monday or Monday. Impression Primary Impression: Disc herniation Additional Impressions: Back pain Pulmonary nodules Scribe Attestation The scribe's documentation has been prepared under my direction and personally reviewed by me in its entirety. I confirm that the note above accurately reflects all work, treatment, procedures, and medical decision making performed by me. Departure Information Dispostion Home / Self-Care Prescriptions Oxycodone Immediate Rel Tab (ROXICODONE IR) 5 Mg Tab 1-2 TAB PO Q4H Y for Severe Pain, #24 TAB Prov: Beny Burgos, DO 12/23/16 Referrals Russel Gonzales M.D. (PCP) Forms HOME CARE DOCUMENTATION FORM, IMPORTANT VISIT INFORMATION Patient Instructions Back Pain - [facility], ED Disk Intervertebral Herniated, My [facility] Additional Instructions Please follow up with orthopedics on Monday morning. Their number is listed below. Any worsening of your symptoms, please return to the ED immediately. This includes weakness in your leg, worsening numbness, numbness in her groin, unable to poop/move your bowels, unable to urinate, or any other concerning signs or symptoms from your standpoint. You were given medications during this visit that will inhibit your ability to drive, operate machinery and work. Please do NOT drive, operate machinery or work for the next 12hrs. You were also given a prescription for a narcotic/Oxy IR. While taking this medication you should also not drive, operate machinery and or work. You can take OxyIR in combination with Tylenol and/or Motrin. Do not take it in combination with Percocet. Problem Qualifiers Primary Impression: Disc herniation Spinal region: lumbar Qualified Codes: M51.26 - Other intervertebral disc displacement, lumbar region Additional Impressions: Back pain Back pain location: low back pain Chronicity: unspecified Back pain laterality: unspecified Sciatica presence: unspecified whether sciatica present Qualified Codes: M54.5 - Low back pain
[2016-12-28] MEDS ORDERED: OXYC1TAB3 PO (14:11)
== END 2016-12-23 22:59 | disposition home or self-care (01) ==
LOC: C.EDC 18:28
DX: M51.26 Other intervertebral disc displacement, lumbar region (principal); M51.27 Other intervertebral disc displacement, lumbosacral region; M54.5 Low back pain; R91.8 Other nonspecific abnormal finding of lung field; I10 Essential (primary) hypertension; Z86.11 Personal history of tuberculosis; Z83.3 Family history of diabetes mellitus; Z82.49 Family history of ischemic heart disease and other diseases of the circulatory system; Z79.82 Long term (current) use of aspirin

== ENCOUNTER 2017-01-02 08:22 | Observation (INO) | payer BC ==
[2016-12-28 12:10] LABS: BASO % 0.3 %; BASO ABS # 0.03 K/uL (0-0.2); COMPLETE YES; EOS % 1.8 %; HEMATOCRIT 44.1 % (42-52); IG% 0.2 %; LYMPH % 21.7 %; LYMPH ABS # 1.95 K/uL (1.2-3.4); MEAN CELL VOLUME 86.8 fL (80-100); MEAN CORPUSCULAR HEMOGLOBIN 30.3 pg (25-34); MEAN CORPUSCULAR HGB CONC 34.9 g/dl (32-36); PLATELET COUNT 219 K/uL (130-400); RED BLOOD COUNT 5.08 M/uL (4.7-6.1)
[2016-12-28 12:20] LABS: INR 1.1 (0.9-1.1); PARTIAL THROMBOPLASTIN RATIO 1.1; PROTHROMBIN TIME (PATIENT) 11.4 SECONDS (9.0-12.0)
--- NOTE | 2016-12-28 12:27 | DIAGNOSTIC IMAGING REPORT ---
TWO VIEW CHEST CLINICAL HISTORY: Preoperative examination.. FINDINGS: PA and lateral chest radiographs are compared to study dated 12/17/2012. The cardiomediastinal silhouette is unremarkable. The lungs and pleural spaces are clear. There is no pneumothorax. The bony thorax appears intact. Chronic change is noted at the right acromial clavicular joint. Degenerative change is seen throughout the thoracic spine. IMPRESSION: No active disease in the chest. Electronically signed by: Abdullahi Carlton M.D. 12/28/2016 12:25 PM Dictated Date/Time: 12/28/2016 12:25 PM
[2016-12-28 12:43] LABS: BLOOD UREA NITROGEN 29 mg/dl (7-18); BUN/CREATININE RATIO 21.9 (10-20); CALCIUM 9.6 mg/dl (8.5-10.1); CARBON DIOXIDE 27 mmol/L (21-32); CHLORIDE 107 mmol/L (98-107); GLUCOSE 107 mg/dl (70-99); POTASSIUM 4.3 mmol/L (3.5-5.1); SODIUM 142 mmol/L (136-145)
[2016-12-28 13:12] LABS: URINE APPEARANCE CLEAR (CLEAR); URINE BILIRUBIN NEG (NEG); URINE COLOR DK YELLOW; URINE NITRITE NEG (NEG); URINE SPECIFIC GRAVITY 1.026 (1.000-1.030); UROBILINOGEN NEG (NEG)
[2016-12-28 13:16] LABS: MANUAL MICROSCOPIC REQUIRED? NO; REVIEW REQ? NO
[2016-12-28 14:11] VITALS: BMI 32.0
--- NOTE | 2016-12-30 11:35 | HISTORY & PHYSICAL EXAMINATION ---
DATE OF ADMISSION: 01/02/2017 CHIEF COMPLAINT: He is being preoped for lumbar spine decompression L3-L4, L4-L5, possible instrumentation, possible fusion. HISTORY OF PRESENT ILLNESS: Mr. Durant is a delightful gentleman. He is 61, significant anterior thigh pain, numbness, burning weakness for 3 weeks in duration, worsening over time. He has a progressive neurological deficit. PAST MEDICAL HISTORY: Hypertension. PAST SURGICAL HISTORY: Shoulder surgery, bilateral ankle surgery, biceps repair. ALLERGIES: None. MEDICATIONS: Multivitamins, fish oil, Prilosec, Synthroid, lisinopril, Meloxicam, and oxycodone. SOCIAL HISTORY: Nonsmoker, non-[employer] user. REVIEW OF SYSTEMS: Denies any fever, sweats, chills, bowel and bladder issues, some fatigue, some loss of appetite. Denies chest pain, palpitations. No shortness of breath. No nausea, vomiting. No urgency, frequency. No loss of bowel or bladder function. PHYSICAL EXAMINATION: GENERAL: He is 5 feet 10 inches, 222 pounds. Alert, oriented, mentation normal. VITAL SIGNS: Blood pressure 130/80, pulse of 80, respiration rate 16. HEENT: Normal. CARDIAC: Normal S1, S2, no S3, no edema. LUNGS: Clear to auscultation. No rales, rhonchi or wheezing. ABDOMEN: Soft, nontender, bowel sounds present, no adenopathy. NEUROLOGICAL: He has decreased range of motion of flexion and extension of the spine, pain with percussion to the spine. He has weakness of quadriceps, decreased reflex, decreased strength and muscle atrophy. IMAGING DATA: Images demonstrated disk herniation L3-L4, stenosis L3-L4 and L4-L5, slight instability L4-L5 and slight spondylolisthesis. ASSESSMENT: Stenosis and listhesis L3-L4, L4-L5 with a large disk herniation L3-L4. DISPOSITION: Includes instructions, precautions, and educations to pathology. Surgery scheduled for Monday the 02 of January of the lumbar spine laminectomy, decompression of nerve roots, particularly L3-L4, more likely L4-L5. I studied his stability patterns. He may be a candidate for a noninstrumented fusion with bone or even a motion-preserving technique. He is being preoped for lumbar spine laminectomy, L3-L4 and L4-L5, possible fusion.
[2017-01-02] VITALS (7 sets, daily range): BP systolic 109–137; BP diastolic 73–99; PULSE 75–113; TEMP 36.5–36.9; O2SAT 93–97; Ht 177.8 cm; Wt 100.9 kg
[~2017-01-02] VITALS: Ht 177.8 cm; Wt 100.9 kg
[~2017-01-02 08:22] MED LIST changes: +CEFAZOLIN 2000 MG/60 ML D5W 60 ML IV SCH; -CIPR-255 PO; +LACTATED RINGER'S 1000ML 1,000 ML IV SCH; +NSS 1000ML IV SCH; -OXYC-57 PO; +OXYC1TAB3 PO; -SILD100T PO
[2017-01-02] MEDS ORDERED: GLYCOPYRROLATE INJ 0.2 MG/ML VIAL ONE ×2 (09:18→11:16)
[2017-01-02] MEDS ORDERED: PROPOFOL IV EMULSION 10 MG/ML 20 ML VIAL IV ONE (09:18)
[2017-01-02] MEDS ORDERED: ONDANSETRON INJ 2 MG/ML 2 ML VIAL ONE ×2 (09:18→13:13)
[2017-01-02] MEDS ORDERED: ROCURONIUM BROMIDE 10 MG/ML 5 ML VIAL ONE ×2 (09:18→11:11)
[2017-01-02] MEDS ORDERED: LIDOCAINE HCL 2% 2 ML VIAL (20MG/ML) ONE (09:18)
[2017-01-02] MEDS ORDERED: DEXAMETHASONE SOD INJ 4 MG/ML VIAL ONE (09:18)
[2017-01-02] MEDS ORDERED: MIDAZOLAM HCL 1 MG/ML 2ML VIAL ONE (09:18)
[2017-01-02] MEDS ORDERED: FENTANYL CITRATE INJ 50 MCG/1 ML 2 ML VIAL ONE (09:18)
[2017-01-02] MEDS ORDERED: NEOSTIGMINE METHYLSULFATE 5 MG/5 ML SYR ONE (09:18)
[2017-01-02] MEDS ORDERED: THROMBIN FOR SOLN 20000 UNIT KIT ONE (10:27)
[2017-01-02] MEDS ORDERED: GELATIN SPONGE SZ 100 ONE (10:27)
[2017-01-02] MEDS ORDERED: BUPIVACAINE/EPINEPHRINE 0.5% MPF 1:200,000 30 ML VIAL ONE (10:27)
[2017-01-02] MEDS ORDERED: BACITRACIN 50000 UNIT VIAL ONE (10:28)
[2017-01-02] MEDS ORDERED: VANCOMYCIN HCL 1000MG/20ML VIAL ONE (10:28)
--- NOTE | 2017-01-02 10:48 | History & Physical Bridge Note ---
H&P Re-Evaluation Bridge Note: I have examined the patient, reviewed the History & Physical and in the interval since the performance of the History & Physical I have noted the following changes of clinical significance: No changes noted
[2017-01-02] MEDS ORDERED: HYDROmorphone INJ 2 MG/ML SYR/VIAL ONE (11:12)
[2017-01-02] MEDS ORDERED: ONDANSETRON INJ 2 MG/ML 2 ML VIAL IV PRN ×2 (11:15→13:45)
[2017-01-02] MEDS ORDERED: LABETALOL HCL IV 5 MG/ML 20ML IV PRN (11:15)
[2017-01-02] MEDS ORDERED: ATROPINE SULFATE 0.1 MG/ML 5ML SYR IV PRN (11:15)
[2017-01-02] MEDS ORDERED: EpHEDrine SULFATE 50MG/5ML SYR ONE (12:03)
--- NOTE | 2017-01-02 13:20 | DIAGNOSTIC IMAGING REPORT ---
LUMBAR SPINE, INTRAOPERATIVE FLUOROSCOPY HISTORY: Lumbar laminectomy. FLUOROSCOPY TIME: 8 seconds. FINDINGS: Intraoperative fluoroscopy was provided for the lumbar spine. 2 fluoroscopic spot images were obtained. IMPRESSION: Fluoroscopy provided for a lumbar laminectomy and fusion. Electronically signed by: Phi Hair M.D. 01/02/2017 1:18 PM Dictated Date/Time: 01/02/2017 1:18 PM
[2017-01-02] MEDS ORDERED: SODIUM CHLORIDE 0.9% 1000ML 1,000 ML IV SCH (13:42)
[2017-01-02] MEDS ORDERED: LORAZEPAM INJ 1 MG in SYRINGE 0.5 ML IV PRN (13:45)
[2017-01-02] MEDS ORDERED: NALOXONE HCL 0.4 MG/1 ML VIAL/CARP IV PRN (13:45)
[2017-01-02] MEDS ORDERED: METOCLOPRAMIDE HCL INJ 5 MG/ML 2 ML VIAL IV PRN (13:45)
[2017-01-02] MEDS ORDERED: MAGNESIUM HYDROXIDE SUSP 30 ML UDC PO PRN (13:45)
[2017-01-02] MEDS ORDERED: LORAZEPAM 1 MG TAB PO PRN (13:45)
[2017-01-02] MEDS ORDERED: ACETAMINOPHEN 325 MG TAB PO PRN (13:45)
[2017-01-02] MEDS ORDERED: PROMETHAZINE HCL INJ 12.5 MG in SODIUM CHLORIDE 0.9% 50ML 50 ML IV PRN (13:45)
--- NOTE | 2017-01-02 13:47 | [facility] Post Operative Brief Note ---
Immediate Operative Summary Operative Date Jan 02, 2017. Pre-Operative Diagnosis Disc herniation L3-L4, Stenosis L3-L5, slight spondylolisthesis Post-Operative Diagnosis Disc herniation L3-L4, Stenosis L3-L5, slight spondylolisthesis Procedure(s) Performed L3-L4, L4-L5 Laminectomy, Decompression, L3-L5 Fusion with Interbody at L3-L4 Surgeon Dr. Smith [employer] Developer Surgeon(s) BUTCH Zambrano Estimated Blood Loss 400ml Findings stenosis Specimens none per surgeon Complication(s) None Disposition Recovery Room / PACU
[2017-01-02] MEDS: HYDROmorphone INJ 2 MG/ML SYR/VIAL IV PRN ×8 (13:52→14:27)
[2017-01-02] MEDS: HYDROmorphone HCL 0.5MG/ML 50 ML CASSETTE IV PRN ×3 (14:15→22:43)
--- NOTE | 2017-01-02 14:38 | Anesthesiology Progress Note ---
Anesthesia Post Op Note Date & Time Jan 02, 2017 at 14:38 Vital Signs Vital Signs Past 12 Hours Date Time Temp Pulse Resp B/P Pulse Ox O2 Delivery O2 Flow Rate FiO2 01/02/17 14:25 86 22 134/72 98 Nasal Cannula 4 01/02/17 14:15 83 15 124/65 96 Nasal Cannula 4 01/02/17 14:05 83 17 121/69 100 Mask 10 01/02/17 13:55 75 18 125/72 100 Mask 10 01/02/17 13:47 36.2 67 16 126/65 100 Mask 10 01/02/17 08:43 36.8 75 16 133/99 97 Room Air Notes Mental Status: alert / awake / arousable, participated in evaluation Pt Amnestic to Procedure: Yes Nausea / Vomiting: adequately controlled Pain: adequately controlled Airway Patency, RR, SpO2: stable & adequate BP & HR: stable & adequate Hydration State: stable & adequate Anesthetic Complications: no major complications apparent
[2017-01-02] MEDS: SODIUM CHLORIDE 0.9% 1000ML 1,000 ML IV SCH (15:49)
[2017-01-02] MEDS: KETOROLAC TROMETHAMINE 30 MG/ML VIAL IV SCH ×2 (16:23→21:22)
--- NOTE | 2017-01-02 16:29 | OPERATIVE REPORT ---
DATE OF OPERATION: 01/02/2017 PREOPERATIVE DIAGNOSIS: Disc herniation L3-4; stenosis L3-4, L4-5; mild instability L3-4 and L4-5. SURGEON: Dr. Smith. IRONWORKER APPRENTICE: Mann Corey PA-C POSTOPERATIVE DIAGNOSIS: Same. PROCEDURE: Lumbar laminectomy L3, L4, L5 lumbar spine; pedicle screw instrumentation, L3-4, lumbar spine; posterior lateral fusion L3, L4, L5 lumbar spine; and a posterior lumbar interbody fusion L3-4 lumbar spine. COMPLICATIONS: Zero. IMPLANTS USED: By the [employer]. COMPLICATIONS: There were no complications. ESTIMATED BLOOD LOSS: 500 mL. COUNTS: Sponge and needle count correct at the close. DESCRIPTION OF PROCEDURE: The patient was taken to the operating room, a general intubated anesthetic provided to the patient. Chavira catheter placed, antibiotics administered. The patient placed prone, scrubbed, prepped and draped sterile. We made a skin incision roughly from 2-5 lumbar spine dissecting the soft tissue down carefully out over the transverse processes and putting in deep self-retaining retractor. We decompressed the neural elements. Various techniques employed getting pressure off the dura at the fifth, fourth and third level lumbar spine; foraminotomies and partial facetectomies. We were careful with every aspect of dissection. I was pleased with the decompression. We then went up to the L3-4 interval favoring the right hand side where he had a large disc herniation. We moved the dura in the medial direction, took out a large disc herniation and first with a 15 scalpel blade and pituitary rongeur. I looked for any free fragments that were possibly impinging and there were none to be found after our decompression. We safely instrumented spine getting pedicle screw safely at L3 and safely at L4. This was verified by x-ray. We then did a posterior lumbar interbody fusion. I completely cleaned out the disc interval at L3-4. We put in the interbody spacer or cage by the [employer]a. It was 30 mm in length. It was 11 mm in height. It was 10 mm in width. It fit perfectly interspaced. We then irrigated thoroughly. We bone grafted out of the transverse processes L3-4 and L4-5, a 2-level fusion. We then closed over a bone closed over Hemovac drain with 1 Vicryl suture, 2-0 in subcuticular layer, staple gun on the skin. Sterile dressing applied. The patient returned to PACU stable. No apparent interoperative complications. I attest to the content of the Intraoperative Record and any orders documented therein. Any exceptio ns are noted below.
[2017-01-02] MEDS ORDERED: DEXAMETHASONE INJ 10 MG in SYRINGE 0 ML IV SCH (18:00)
[2017-01-02] MEDS: CEFAZOLIN IV 2,000 MG in DEXTROSE 5% 50ML 50 ML IV SCH (18:44)
[2017-01-02] MEDS ORDERED: NURSING VERBAL MED ORDER ONE (20:00)
[2017-01-02] MEDS: MULTIVITAMIN TAB PO SCH (21:21)
[2017-01-03] MEDS: CEFAZOLIN IV 2,000 MG in DEXTROSE 5% 50ML 50 ML IV SCH ×2 (02:21→10:40)
[2017-01-03] MEDS: SODIUM CHLORIDE 0.9% 1000ML 1,000 ML IV SCH (02:21)
[2017-01-03 03:30] VITALS: BP 111/71; PULSE 82; TEMP 36.9; O2SAT 98
[2017-01-03] MEDS: KETOROLAC TROMETHAMINE 30 MG/ML VIAL IV SCH ×3 (03:45→15:40)
[2017-01-03] MEDS ORDERED: BISACODYL 10 MG SUPP PR PRN (06:00)
[2017-01-03] MEDS ORDERED: BISACODYL 5 MG TABEC PO PRN (06:00)
[2017-01-03 06:15] LABS: HEMATOCRIT 34.9 % (42-52)
[2017-01-03] MEDS: LEVOTHYROXINE 100 MCG TAB PO SCH (06:22)
[2017-01-03 07:11] VITALS: BP 115/72; PULSE 75; TEMP 36.8; O2SAT 98
--- NOTE | 2017-01-03 07:47 | Anesthesiology Progress Note ---
Anesthesia Post Op Note Date & Time Jan 03, 2017 at 07:46 Vital Signs Pain Intensity: 4.0 Vital Signs Past 12 Hours Date Time Temp Pulse Resp B/P Pulse Ox O2 Delivery O2 Flow Rate FiO2 01/03/17 07:11 36.8 75 19 115/72 98 Nasal Cannula 2.0 01/03/17 03:30 36.9 82 16 111/71 98 Nasal Cannula 1.5 01/03/17 00:00 Nasal Cannula 2.0 01/02/17 23:05 36.9 87 16 111/74 97 Nasal Cannula 1.5 Notes Mental Status: alert / awake / arousable, participated in evaluation Pt Amnestic to Procedure: Yes Nausea / Vomiting: adequately controlled Pain: adequately controlled Airway Patency, RR, SpO2: stable & adequate BP & HR: stable & adequate Hydration State: stable & adequate Anesthetic Complications: no major complications apparent pain controlled. 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
[2017-01-03] MEDS ORDERED: HYDROmorphone INJ 2 MG/ML SYR/VIAL IV PRN (08:00)
[2017-01-03] MEDS ORDERED: OXYCODONE/ACETAMINOPHEN 5-325 TAB PO PRN (08:00)
[2017-01-03] MEDS ORDERED: HYDROmorphone INJ 1 MG/ML SYR IV PRN (08:00)
[2017-01-03] MEDS ORDERED: DC PCA SCH (08:00)
[2017-01-03] MEDS: PANTOprazole SOD 40 MG TAB PO SCH (08:47)
[2017-01-03] MEDS: LISINOPRIL 10 MG TAB PO SCH (08:47)
[2017-01-03] MEDS: ASPIRIN 81 MG ECTAB PO SCH (08:47)
[2017-01-03] MEDS: POLYETHYLENE (MIRALAX) 17 GM PACK PO SCH (08:48)
[2017-01-03] MEDS ORDERED: MELOXICAM 7.5 MG TAB PO SCH (09:00)
[2017-01-03] MEDS: OXYCODONE/ACETAMINOPHEN 5-325 TAB PO PRN ×3 (09:20→19:52)
[2017-01-03] MEDS ORDERED: NURSING VERBAL MED ORDER ONE (11:15)
[2017-01-03 11:57] VITALS: BP 100/63; PULSE 74; TEMP 36.7; O2SAT 95
--- NOTE | 2017-01-03 12:51 | Discharge Instructions ---
Discharge Instructions Date of Service Jan 03, 2017. Admission Reason for Admission: Lumbar Disc Herniation, Spinal Stenosis Discharge Discharge Diagnosis / Problem: spinal stenosis Discharge Goals Goal(s): Improve function Activity Recommendations Activity Limitations: as noted below Lifting Limitations: until after follow-up appointment Exercise/Sports Limitations: until after follow-up appointment May Resume Sexual Activity: after follow-up appointment Shower/Bathe: keep incision dry Driving or Machine Use: . Instructions / Follow-Up Instructions / Follow-Up MEDICATIONS: Please take your prescriptions as instructed at your pre-op appointment. SPECIAL CARE: The following information is intended to answer some of the common questions and concerns regarding your surgery. Each patient is an individual and receives individual counselling throughout the course of treatment, from diagnosis to surgery all the way through recovery. What follows is not an exhaustive list, but should be a useful guide to some of the common questions and concerns patients have regarding their surgeries. These are not provided to keep you from calling us; rather, they give you something accurate and concrete to reference as you recover from your procedure. If you need us, we are available to you. As always, if you are not sure about something, call us at [phone]. MEDICAL EMERGENCIES: For these conditions, call 911 or go to your local hospital-based Emergency Department - not [facility] or equivalent. * Paralysis * Severe chest pain or difficulty breathing * Swelling or redness of either leg Spine procedures can be rather complex and though complications are rare, they do occur. In such cases, effective advice regarding emergency situations cannot always be addressed over the telephone. You may be referred to the emergency department for more effective management of your problem. Activity Limitations: It is important to give your body time to heal, so please limit your activities : * In general, don't do anything that moves your spine too much. You should avoid contact sports, twisting or heavy lifting while you recover. * 5-10 pounds is all you should attempt to lift. * You should not plan on driving for approximately 3 weeks and you should avoid traveling more than 30-45 minutes at a time. Longer trips should be broken down with walking breaks spaced appropriately. * Physical therapy is not usually required. * Walking and good posture practices will help you recover and regain your function. * Avoid straining or sudden changes in position. * In general, the goal is to take it easy and recover. Don't cause any new problems. Just relax. Showers: * Do not take a bath, use a Jacuzzi or hot tub or otherwise submerge your incision. * It is usually safe to take a shower 4-5 days after your surgery. * Your incision does not require any special creams or ointments. * Simply clean it with soap and water, dry and re-dress with a clean bandage afterwards. Incision: * Keep incision clean, dry and protected until your first follow-up appointment. * Some amount of drainage and redness is normal. Any drainage should be fairly clear and not have a foul odor. * If you feel anything is wrong or you have excessive drainage, please call us. * Your stitches and cathy will be removed 10-14 days after your surgery. At the time of your first post-op visit. * Neck surgeries are typically closed with a suture underneath the skin. The steri-strips over the incision should be maintained until we see you in the office. Bracing: * You may be provided with a back or neck brace to encourage good posture and prevent injury. It will remind you not to do too much as you heal and will alert others to the fact that you have had a surgery. * Back braces may be removed for showers and when you are resting at home. They must be worn when you are walking around for any period of time or for travel. * For neck surgery, you will likely be provided with two cervical collars. The soft collar ([place] or foam rubber) is worn most commonly throughout the day and while sleeping. The plastic collar (provided at the hospital) is for showering/bathing. * Except while eating, collars should remain in place. More specifically, bracing is provided for a purpose and should be worn. * Please obtain your brace or collars prior to your operation and bring them to the hospital with you on the day of surgery. * You should also bring your collars to your post-op appointment with Dr. Smith. You should always take good care of your body and practice healthy habits, especially following surgery. You should: * Follow your doctor's treatment plan * Sit and stand properly with good posture (ears over shoulders, shoulders over hips) Don't slouch * Learn to lift correctly * Exercise regularly (low-impact aerobic exercise is especially good, but check with your doctor first) * Generally, be up and walking for 5-10 minutes at a time at least 3-4 times per day from the day you get home * Increasing walking to tolerance until you can walk for 20-30 minutes at a time * Attain and maintain a healthy body weight * Eat healthy foods ( a well-balanced, low-fat diet rich in fruits and vegetables) and get enough calcium * Avoid excessive use of alcohol When to call our office - If you notice any of the following: * Increased pain not relieve by pain medicine * Fevers greater then 100 degrees F, chills or flu symptoms * Increased redness around incision * Drainage from the incision that is not clear * Any foul smelling drainage * Swelling or fluid collection beneath the skin Miscellaneous: * In the hospital, you may be given a walker or cane for support while walking. These are temporary needs and are intended to prevent injuries due to falls. You may discontinue them when you feel strong and steady enough on your feet. * Sleep in a comfortable position. We find that many patients find a lounge chair or recliner with several pillows to be beneficial in the early post-operative period. * The support stockings should be used for 7-10 days and may be discontinued when you are back to walking more and conducting usual household activities. No problem is insignificant. We are here to help you and get you well. Contact us at [phone]. Definitions: Foraminotomy: If part of the disc or a bone spur (osteophyte) is pressing on a nerve as it leaves the vertebra (through an exit called the foramen), a foraminotomy may be done. Otomy means "to make an opening." A foraminotomy is making the opening of the foramen larger, so the nerve can exit without being compressed. Laminotomy: Similar to the foraminotomy, a laminotomy makes a larger opening, this time in your bony plate protecting your spinal canal and spinal cord (the lamina). The lamina may be pressing on your nerve, so the surgeon may make more room for the nerves using a laminotomy. Laminectomy: Sometimes, a laminotomy is not sufficient. The surgeon may need to remove all or part of the lamina. This procedure is called a laminectomy. This can often be done at many levels without any harmful effects. Current Hospital Diet Patient's current hospital diet: Regular Diet Discharge Diet Recommended Diet: Regular Diet Fluid Restriction: None Procedures Procedures Performed: L3-L4, L4-L5 Laminectomy, Decompression, L3-L5 Fusion with Interbody at L3-L4 Pending Studies Studies pending at discharge: no Medical Emergencies . Who to Call and When: Medical Emergencies: If at any time you feel your situation is an emergency, please call 911 immediately. . Non-Emergent Contact Non-Emergency issues call your: Surgeon Call Non-Emergent contact if: you have any medication questions . "Provider Documentation" section prepared by Hugo Smith. VTE Core Measure Inpt VTE Proph given/why not?: Treatment not indicated
--- NOTE | 2017-01-03 12:56 | PROGRESS NOTE ---
DATE: 01/03/2017 DATE: 01/03/2017. SUBJECTIVE: Moderate complaints of pain. Alert, oriented. OBJECTIVE: Moves all 4 extremities. No neurological deficit. A 34.9 hematocrit. ASSESSMENT: Status post lumbar spine decompression laminectomy and fusion. DISPOSITION: Includes instructions, precautions, education and ambulatory today. Discharge home tomorrow if stable.
[2017-01-03 15:23] VITALS: BP 122/71; PULSE 63; TEMP 36.9; O2SAT 96
[2017-01-03 15:47] VITALS: O2SAT 96
[2017-01-03] MEDS: MULTIVITAMIN TAB PO SCH (21:00)
[2017-01-03 23:35] VITALS: BP 122/76; PULSE 66; TEMP 36.8; O2SAT 96
[2017-01-04] MEDS: OXYCODONE/ACETAMINOPHEN 5-325 TAB PO PRN ×2 (00:11→05:44)
[2017-01-04] MEDS: LEVOTHYROXINE 100 MCG TAB PO SCH (05:43)
[2017-01-04 06:03] VITALS: BP 123/77; PULSE 65; TEMP 36.5; O2SAT 99
--- NOTE | 2017-01-04 07:56 | DISCHARGE SUMMARY ---
DATE OF DISCHARGE: 01/04/17 SUBJECTIVE: Moderate complaints of discomfort, no serious pain. Denies chest pain, shortness of breath. He is not confused. OBJECTIVE: Vital signs stable 36.5 temperature, blood pressure controlled. Laboratory work normal. ASSESSMENT: Status post lumbar spine reconstructive surgery. DISPOSITION: We will discharge the patient home later on this morning. Dressing will be changed. He has instructions, precautions from here and from the office to simply be careful with bending, stooping, lifting, allow himself to recover. Will see him back in the office in 10 days.
[2017-01-04] MEDS: POLYETHYLENE (MIRALAX) 17 GM PACK PO SCH (08:03)
[2017-01-04] MEDS: PANTOprazole SOD 40 MG TAB PO SCH (08:04)
[2017-01-04] MEDS: ASPIRIN 81 MG ECTAB PO SCH (08:04)
[2017-01-04] MEDS: LISINOPRIL 10 MG TAB PO SCH (08:05)
[2017-01-04 09:49] VITALS: BP 123/77; PULSE 65; TEMP 36.5; O2SAT 99
== END 2017-01-04 10:34 | disposition home or self-care (01) ==
LOC: ENRESERVDT → ENRESERVTM → C.ACU 08:22 → C.3E 13:52
PROVIDERS: ADMIT Orthopaedic Surgery Orthopaedic Surgery of the Spine; ATTEND Orthopaedic Surgery Orthopaedic Surgery of the Spine
DX: M51.26 Other intervertebral disc displacement, lumbar region (principal); M48.06 Spinal stenosis, lumbar region; I10 Essential (primary) hypertension

== ENCOUNTER → 2017-04-07 | Outpatient (CLI) | payer BC ==
[~2017-04-07] MED LIST changes: -CEFAZOLIN 2000 MG/60 ML D5W 60 ML IV SCH; -LACTATED RINGER'S 1000ML 1,000 ML IV SCH; -NSS 1000ML IV SCH
--- NOTE | 2017-04-07 16:37 | DIAGNOSTIC IMAGING REPORT ---
CT SCAN OF THE CHEST WITHOUT IV CONTRAST CLINICAL HISTORY: Pulmonary nodules. COMPARISON STUDY: Chest radiographs dated 12/28/2016. Abdominal CT scans dated 12/23/2016 and 12/21/2016. TECHNIQUE: CT scan of the thorax was performed from the thoracic inlet to the upper abdomen. Images are reviewed in the axial, sagittal, and coronal planes. IV contrast was not administered for this examination as per the referring clinician. CT DOSE: 678.53 mGy.cm FINDINGS: Thyroid: Imaged portions of the thyroid gland are normal in size and attenuation. Thoracic aorta: There is mild atherosclerotic calcification of the thoracic aorta, which is normal in caliber and demonstrates standard 3-vessel arch anatomy. Heart: The heart is top normal in size and without pericardial effusion. There are coronary artery calcifications. Lungs and pleural spaces: There is no airspace consolidation or pleural effusion. The trachea and central airways are clear. A small fat-containing Bochdalek hernia is seen at the right lung base. The density in the lingula seen on 12/23/2016 has resolved and likely represented atelectasis. There is a 6 mm pleural-based nodule in the right lower lobe seen on image #183. Mediastinum: There is no mediastinal lymphadenopathy. Gudelia: Not well assessed without IV contrast. Axillae: There is no axillary lymphadenopathy. Upper abdomen: The liver is enlarged and steatotic. A tiny hiatal hernia is identified. Partially visualized upper abdominal viscera is otherwise within normal limits. Skeletal structures: The skeletal structures appear osteopenic. No lytic or blastic bony lesions are seen. Advanced arthritic change is noted in the shoulders. IMPRESSION: 1. There is no airspace consolidation or pleural effusion. 2. The lingular density seen on prior studies has resolved and was likely related to atelectasis/inflammation. 3. An indeterminant 6 mm pleural-based nodule in the right lower lobe is similar to previous. Follow-up as per the Fleischner criteria is recommended. See below. 4. Hepatomegaly and hepatic steatosis. Please refer to below summary of Fleischner criteria recommendations for follow-up of incidental CT nodules (Gabbi Dowd, Guidelines for management of small pulmonary nodules detected on CT scans: A statement from the Fleischner Society, Radiology 237: [phone].) SOLID NODULES Solitary nodule size: <6 mm * low risk patients: no follow-up needed * high risk patients: optional CT at 12 months Solitary nodule size: 6-8 mm * low risk patients: follow-up at 6-12 months, then consider further follow-up at 18-24 months * high risk patients: initial follow-up CT at 6-12 months and then at 18-24 months if no change Solitary nodule size: >8 mm * either low or high risk patients - consider follow-up CT at 3 months, and/or CT-PET, and/or biopsy Multiple nodules size: <6 mm * low risk patients: no routine follow-up * high risk patients: optional CT at 12 months Multiple nodules size: 6-8 mm * low risk patients: follow-up at 3-6 months, then consider further follow-up at 18-24 months * high risk patients: follow-up at 3-6 months, then at 18-24 months if no change Multiple nodules size: >8 mm * low risk patients: follow-up at 3-6 months, then consider further follow-up at 18-24 months * high risk patients: follow-up at 3-6 months, then at 18-24 months if no change Note: newly detected indeterminate nodule in persons 35 years of age or older. * low risk patients: minimal or absent history of smoking and/or other known risk factors * high risk patients: history of smoking or of other known risk factors (e.g. first degree relative with lung cancer, or exposure to asbestos, radon, uranium) * if a nodule up to 8 mm is partly solid or is ground glass further follow-up is required after 24 months to exclude possible slow growing adenocarcinoma ([place]) SUBSOLID NODULES Solitary pure ground-glass nodule * nodule size <6 mm - no CT follow-up required * nodule size >=6 mm - follow-up CT at 6-12 months, then every 2 years until 5 years Solitary part-solid nodule * nodule size <6 mm - no CT follow-up required * nodule size >=6 mm - follow-up CT at 3-6 months. If unchanged, and solid component remains <6 mm, then annual follow-up for 5 years Multiple subsolid nodules * nodule size <6 mm - follow-up CT at 3-6 months, consider further follow-up at 2 and 4 years if stable * nodule size >=6 mm - follow-up CT at 3-6 months, subsequent management based on the most suspicious nodule(s) Electronically signed by: Abdullahi Carlton M.D. 04/07/2017 4:36 PM Dictated Date/Time: 04/07/2017 4:29 PM
== END ==
LOC: C.CTS 16:16
PROVIDERS: ATTEND Family Medicine
DX: R91.8 Other nonspecific abnormal finding of lung field (principal)

== ENCOUNTER 2022-09-02 09:12 | Observation (INO) ==
--- NOTE | 2022-07-27 11:43 | PAT Medication Instructions ---
Medication Instructions Date of Service July 27, 2022 Home Medications Medication Instructions Recorded duloxetine 30 mg capsule,delayed 30 mg PO BID #180 caps 11/22/21 release (Cymbalta) hydrochlorothiazide 12.5 mg tablet 12.5 mg PO QAM #90 tabs 03/15/22 prednisone 20 mg tablet See Rx Instructions PO .COMPLEX 06/29/22 #30 tabs multivitamin 1 tab PO QPM omega 8-jnn-npx-fish oil 1,000 mg (120 mg-180 mg) capsule (Fish Oil) 1 cap PO QPM diphenhydramine 50 mg-acetaminophen 500 mg tablet 1 tab PO .COMPLEX PRN aspirin 81 mg chewable tablet (Aspirin Childrens) 81 mg PO QPM duloxetine 30 mg capsule,delayed release (Cymbalta) 30 mg PO BID hydrochlorothiazide 12.5 mg tablet 12.5 mg PO QAM prednisone 20 mg tablet See Rx Instructions PO .COMPLEX psyllium husk 0.4 gram capsule (Daily Fiber) 0.4 g PO QPM acetaminophen 500 mg tablet 500 mg PO BID levothyroxine 100 mcg tablet 100 mcg PO QAM lisinopril 40 mg tablet 40 mg PO QAM meloxicam 15 mg tablet 15 mg PO QAM omeprazole 20 mg capsule,delayed release 20 mg PO QAM pregabalin 300 mg capsule (Lyrica) 300 mg PO BID Continue as directed prednisone 20 mg tablet See Rx Instructions PO .COMPLEX ASK your surgeon for instructions meloxicam 15 mg tablet 15 mg PO QAM STOP taking 2 weeks before surgery omega 2-mzo-whf-fish oil 1,000 mg (120 mg-180 mg) capsule (Fish Oil) 1 cap PO QPM DO NOT take the morning of surgery diphenhydramine 50 mg-acetaminophen 500 mg tablet 1 tab PO .COMPLEX PRN hydrochlorothiazide 12.5 mg tablet 12.5 mg PO QAM lisinopril 40 mg tablet 40 mg PO QAM Take morning of surgery With a small sip of water, OTHERWISE NOTHING TO EAT OR DRINK AFTER MIDNIGHT: duloxetine 30 mg capsule,delayed release (Cymbalta) 30 mg PO BID acetaminophen 500 mg tablet 500 mg PO BID levothyroxine 100 mcg tablet 100 mcg PO QAM omeprazole 20 mg capsule,delayed release 20 mg PO QAM pregabalin 300 mg capsule (Lyrica) 300 mg PO BID Take evening before surgery multivitamin 1 tab PO QPM aspirin 81 mg chewable tablet (Aspirin Childrens) 81 mg PO QPM (unless directed otherwise by surgeon) duloxetine 30 mg capsule,delayed release (Cymbalta) 30 mg PO BID psyllium husk 0.4 gram capsule (Daily Fiber) 0.4 g PO QPM acetaminophen 500 mg tablet 500 mg PO BID pregabalin 300 mg capsule (Lyrica) 300 mg PO BID Other Notes If you have any questions please call us at [phone] or [phone] or [phone] or [phone]
--- NOTE | 2022-08-02 10:34 | Anesthesiology Consultation ---
Date of Service August 02, 2022 Assessment & Plan (1) Encounter for pre-operative examination: Outpatient joint assessment: Patient is currently scheduled for inpatient pathway. If re-evaluated pending system levels during current pandemic/surgeon requests outpatient pathway, patient is acceptable candidate for outpatient joint program from anesthesia standpoint pending surgeon's office assessment of pt motivation/support/completion of same day joint program preop requirements. Chart Review Chart Review: Acceptable Risk for Surgery and Patient seen in Pre Admission Testing Teaching & Discussion Pre-Anesthesia Teaching/Discussion Notes: Instructed NPO after midnight before surgery, except medications with 15 cc of water. Medication instructions provided according to the PAT guidelines. History Surgery Operation Date: 09/02/22 08:10 Proposed Procedures p Right Reverse Total Shoulder Arthroplasty - Mann Zeng, Height/Weight Height: 5 ft 10 in Weight: 98.6 kg Allergies Allergy/AdvReac Type Severity Reaction Status Date / Time No Known Allergies Allergy Mild Verified 07/18/22 11:12 Medications Home Medications Medication Instructions Recorded Confirmed Last Taken multivitamin 1 tab PO QPM 04/20/19 07/18/22 07/16/22 omega 4-dfu-qku-fish oil 1,000 mg 1 cap PO QPM 04/20/19 07/18/22 07/16/22 (120 mg-180 mg) capsule (Fish Oil) diphenhydramine 50 1 tab PO .COMPLEX PRN Allergy 10/01/19 07/18/22 Unknown mg-acetaminophen 500 mg tablet Symptoms aspirin 81 mg chewable tablet 81 mg PO QPM 09/27/21 07/18/22 07/17/22 (Aspirin Childrens) duloxetine 30 mg capsule,delayed 30 mg PO BID #180 caps 11/22/21 07/18/22 07/17/22 release (Cymbalta) hydrochlorothiazide 12.5 mg tablet 12.5 mg PO QAM #90 tabs 03/15/22 07/18/22 07/17/22 prednisone 20 mg tablet See Rx Instructions PO .COMPLEX 06/29/22 07/18/22 Unknown #30 tabs psyllium husk 0.4 gram capsule 0.4 g PO QPM 06/29/22 07/18/22 07/15/22 (Daily Fiber) acetaminophen 500 mg tablet 500 mg PO BID 07/07/22 07/18/22 07/17/22 levothyroxine 100 mcg tablet 100 mcg PO QAM 07/07/22 07/18/22 07/17/22 lisinopril 40 mg tablet 40 mg PO QAM 07/07/22 07/18/22 07/17/22 meloxicam 15 mg tablet 15 mg PO QAM 07/07/22 07/18/22 07/17/22 omeprazole 20 mg capsule,delayed 20 mg PO QAM 07/07/22 07/18/22 07/17/22 release pregabalin 300 mg capsule (Lyrica) 300 mg PO BID 07/07/22 07/18/22 07/17/22 Past Medical History Medical History (Updated 08/02/22 @ 15:16 by Kasandra Bazan PA-C) Chronic reflux esophagitis controlled, stable per pt CKD (chronic kidney disease) Cr 1.6-1.98 over past year HLD (hyperlipidemia) HTN (hypertension) controlled, stable per pt Hypothyroidism Radicular low back pain Tuberculosis hx 40 years ago - treated; denies active cough, weight loss, night sweats or hemoptysis Patient denies h/o stroke, seizures, heart attack, heart failure, DM, blood clots or blood transfusions. Exercise / Class Metabolic Activity II 4-5 Yardwork/Stairs/Walk up hill (denies CP or SOB with 1 FOS) Past Family History Family History Mother Diabetes Heart disease Sister Ovarian cancer Father Heart disease Myocardial infarction Other No family history of adverse response to anesthesia Denies family history of Prostate cancer Breast cancer Colorectal cancer Past Surgical History Surgical History History of ankle surgery Rt History of back surgery History of colonoscopy History of shoulder surgery BL History of surgery left biceps repair History of tonsillectomy and adenoidectomy Past Anesthesia History No Hx of Anesthesia Complications and No Family Hx of Anesthesia Complications History of PONV No Hx of PONV and No Hx of Motion Sickness Social History Smoking Status: Never smoker Do You Dip or Chew Tobacco: No Hx Alcohol Use: No Hx Substance Use: No substance use type: does not use Review of Systems Patient denies chest pain, shortness of breath, dyspnea on exertion, snoring, witnessed apneas, fever, chills, cough, wheezing, or palpitations. Physical Exam Vital Signs Vitals BP 157/93 P 66 TEMP 99 SP02 94% on RA RESP 17 Physical Full cervical extension range of motion without pain TMD 3.5 finger breadths Mallampati Score 2 Dentition: intact,crown; denies chipped or loose teeth, implants or bridges Lungs: normal respiratory effort. Clear throughout to auscultation, no adventitious breath sounds Cardiac: regular rate and rhythm, no murmurs noted Carotid arteries: negative bruit bilat Lab Results Anesthesia Preop Results Results Anesthesia Widget: WBC 5.73 K/ul (4.8-10.8) 08/02/22 Hgb 12.8 g/dl (14.0-18.0) L 08/02/22 Hct 37.9 % (40.1-51.0) L 08/02/22 Plt 232 K/uL (130-400) 08/02/22 Na 139 mmol/L (136-145) 08/02/22 K 4.4 mmol/L (3.5-5.1) 08/02/22 Cl 105 mmol/L (98-107) 08/02/22 CO2 29 mmol/L (21-32) 08/02/22 BUN 29 mg/dl (6-23) H 08/02/22 Creat 1.93 mg/dl (0.6-1.4) H 08/02/22 Glucose Level 85 mg/dl (70-99(Fasting)) 08/02/22 PT 10.7 Seconds (9.0-12.0) 08/02/22 PTT 27.6 Seconds (21.0-31.0) 08/02/22 INR 1.0 (0.9-1.1) 08/02/22 Blood Type O Positive 08/02/22 Antibody Screen NEGATIVE 08/02/22 Testing Electrocardiogram Date: 08/02/22 NSR, rate 63 bpm Chest X-Ray Date: 08/02/22 Cardiomediastinal and hilar silhouettes are within normal limits. No pneumothorax, pleural effusion, airspace consolidation or overt pulmonary edema. Degenerative changes of the shoulders and spine. IMPRESSION: No acute process. Cervical Spine Date: 10/05/21 x-ray No fractures or subluxations are identified. Degenerative changes are noted in the cervical spine. The alignment is anatomic Prevertebral soft tissues are within normal limits. IMPRESSION: No evidence for acute fracture or subluxation. COVID-19 Risk Screen Screening Information COVID-19 Screen Date: 08/02/22 Exposure 21 Days Family/Household +COVID Last 21 Days: No Exposure 10 Days Any COVID Exposure Last 10 Days: No Symptoms Last 10 Days Experienced COVID Sx Last 10 Days: No + COVID 0-90 Days COVID + in Last 0-90 Days: No
--- NOTE | 2022-09-01 13:06 | History & Physical Report ---
Date of Service September 01, 2022 Assessment & Plan (1) Osteoarthritis of right shoulder: We will proceed with a right reverse shoulder arthroplasty. Postoperatively he will be placed in a sling and kept overnight for postop medical management. He plans to use [employer] upon discharge. History of Present Illness Chief Complaint: Osteoarthritis of the right shoulder. Primary Care Provider: Diane Jauregui MD Hugo is a pleasant 67-year-old retired male who has been dealing with a 2-year history of increasing right shoulder pain. It now bothers him all the time. It wakes him up at night. He has trouble doing activities away from his body or up overhead. He does have a history of right shoulder arthroscopy done about 15 years ago at [facility]. X-rays and clinical examination have been diagnostic for advanced osteoarthritis of the right shoulder. After failing conservative treatment, he has elected proceed with a right reverse shoulder arthroplasty. Allergies Allergy/AdvReac Type Severity Reaction Status Date / Time No Known Allergies Allergy Mild Verified 07/18/22 11:12 Home Medications Medication Instructions Recorded Confirmed Type multivitamin 1 tab PO QPM 04/20/19 07/18/22 History omega 3-zrv-qbd-fish oil 1,000 mg 1 cap PO QPM 04/20/19 07/18/22 History (120 mg-180 mg) capsule (Fish Oil) diphenhydramine 50 1 tab PO .COMPLEX PRN Allergy 10/01/19 07/18/22 History mg-acetaminophen 500 mg tablet Symptoms aspirin 81 mg chewable tablet 81 mg PO QPM 09/27/21 07/18/22 History (Aspirin Childrens) duloxetine 30 mg capsule,delayed 30 mg PO BID #180 caps 11/22/21 07/18/22 Rx release (Cymbalta) hydrochlorothiazide 12.5 mg tablet 12.5 mg PO QAM #90 tabs 03/15/22 07/18/22 Rx prednisone 20 mg tablet See Rx Instructions PO .COMPLEX 06/29/22 07/18/22 Rx #30 tabs psyllium husk 0.4 gram capsule 0.4 g PO QPM 06/29/22 07/18/22 History (Daily Fiber) acetaminophen 500 mg tablet 500 mg PO BID 07/07/22 07/18/22 History levothyroxine 100 mcg tablet 100 mcg PO QAM 07/07/22 07/18/22 History lisinopril 40 mg tablet 40 mg PO QAM 07/07/22 07/18/22 History meloxicam 15 mg tablet 15 mg PO QAM 07/07/22 07/18/22 History omeprazole 20 mg capsule,delayed 20 mg PO QAM 07/07/22 07/18/22 History release pregabalin 300 mg capsule (Lyrica) 300 mg PO BID 07/07/22 07/18/22 History Past Med/Surg History Medical History Chronic reflux esophagitis controlled, stable per pt CKD (chronic kidney disease) Cr 1.6-1.98 over past year HLD (hyperlipidemia) HTN (hypertension) controlled, stable per pt Hypothyroidism Radicular low back pain Tuberculosis hx 40 years ago - treated; denies active cough, weight loss, night sweats or hemoptysis Surgical History History of ankle surgery Rt History of back surgery History of colonoscopy History of shoulder surgery BL History of surgery left biceps repair History of tonsillectomy and adenoidectomy Family History Mother Diabetes Heart disease Sister Ovarian cancer Father Heart disease Myocardial infarction Other No family history of adverse response to anesthesia Denies family history of Prostate cancer Breast cancer Colorectal cancer Social History Smoking Status: Never smoker Second Hand Exposure: No; Hx Alcohol Use: No Hx Substance Use: No Preferred Language: Romanian Communication Ability: Effective Visual Impairment: Limited Hearing Ability: Normal 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 Physical Exam On physical examination the right shoulder, he has about 60 degrees of abduction and 70 degrees of forward elevation. He is 30 degrees of external rotation and crepitus throughout range of motion.. Constitutional WD/WN, vitals as above Eyes PERRL, conjunctivae normal, anicteric sclerae ENMT external ear and nose normal, oropharynx normal Neck trachea midline, no thyromegaly Respiratory normal respiratory effort, lungs clear to auscultation Cardiovascular RRR, no murmur, no edema Gastrointestinal (Abdomen) normal bowel sounds, soft, nontender, no hepatosplenomegaly Skin no rashes, warm and dry Psychiatric A+Ox3, euthymic affect Results & Data Results & Data Laboratory Results . Diagnostic Findings X-rays of the right shoulder show advanced osteoarthritis with joint space narrowing, osteophyte formation, and [id number] articulation. PG Care Time/CCT Total # of Minutes Spent Total Time Spent with Patient: Total time spent is greater than 50% in coordination of care (as documented) at patient's floor/unit and/or counseling patient: Coding Level of Care Code None Diagnoses Osteoarthritis of right shoulder M19.011
[~2022-09-02 09:12] MED LIST changes: +ACETAMINOPHEN 500 MG TAB PO SCH; -ASPI81TA28 PO; +BUPIVACAINE 0.5 % 5 MG/1 ML PF 10ML VIAL ONE; -CALC625T13 PO; +FAMOTIDINE 20 MG TAB PO SCH; +GABAPENTIN 300 MG CAP PO SCH; -LEVO100T PO; -LISI-461 PO; +LR 15ML/HR IV SCH; +LR 60ML/HR IV SCH; -MELO15TA4 PO; -MULT-506 PO; -OMEG10007 PO; -OMEP20TA PO; +ORTHO JOINT MIX INFIL SCH; -OXYC1TAB3 PO; +TRANEXAMIC ACID 1,000 MG **IV Intra-op IV SCH; +TRANEXAMIC ACID 1,000 MG **IV Pre-op IV SCH; +ceFAZolin 2000MG 2,000 MG/15 ML SYR IV SCH; +dexAMETHasone 4 MG TAB PO SCH
[2022-09-02] MEDS ORDERED: DEXAMETHASONE SOD INJ 4 MG/ML VIAL ONE (09:26)
[2022-09-02] MEDS ORDERED: ONDANSETRON INJ 2 MG/ML 2 ML VIAL ONE (09:26)
[2022-09-02] MEDS ORDERED: fentaNYL citrate 100 MCG/2 ML VIAL ONE (09:26)
[2022-09-02] MEDS ORDERED: PROPOFOL IV EMULSION 10 MG/ML 20 ML VIAL IV ONE (09:26)
[2022-09-02] MEDS ORDERED: MIDAZOLAM HCL 1 MG/ML 2ML VIAL ONE (09:27)
--- NOTE | 2022-09-02 09:55 | History & Physical Bridge Note ---
Date of Service September 02, 2022 History & Physical Bridge Note I have examined the patient, reviewed the History & Physical and in the interval since the performance of the History & Physical I have noted the following changes of clinical significance: no changes noted
[2022-09-02] MEDS ORDERED: ORTHO JOINT ANESTHETIC ONE (10:20)
[2022-09-02] MEDS ORDERED: LABETALOL HCL IV 5 MG/ML 20ML IV PRN (10:42)
[2022-09-02] MEDS ORDERED: ONDANSETRON INJ 2 MG/ML 2 ML VIAL IV PRN ×2 (10:42→15:10)
[2022-09-02] MEDS ORDERED: fentaNYL citrate 100 MCG/2 ML VIAL IV PRN (10:42)
[2022-09-02] MEDS ORDERED: ATROPINE SULFATE 0.1 MG/ML 10ML SYR IV PRN (10:42)
[2022-09-02] MEDS ORDERED: PHENYLEPHRINE 100MCG/ML 5ML SYR ONE (11:17)
[2022-09-02] MEDS ORDERED: ePHEDrine sulfate 50 MG/ML SYR ONE (11:17)
--- NOTE | 2022-09-02 12:13 | Operative Report ---
PG Post Operative Report Pre & Post Diagnosis Operation Date: 09/02/22 11:40 Pre-Op Diagnosis: Degenerative Joint Disease Right Shoulder with tendinopathy long head of the biceps tendon Post-Op Diagnosis: Degenerative Joint Disease Right Shoulder with tendinopathy long head of biceps tendon I identified the patient and participated in the time-out.: Yes Procedure Operation Date: 09/02/22 11:40 Actual Procedures p Right Reverse Total Shoulder Arthroplasty, Uncemented(Right) with open biceps tenodesis as a distinct and separate procedure (modifier 59)- Mann Zeng DO Surgeon Mann Zeng DO [employer] Mann Corey PA-C Estimated Blood Loss 250 Findings Consistent with Post-Op Diagnosis Specimens Right humeral head Description of Procedure A CPT code modifier 59: The long head of the biceps tendon was enlarged and inflamed consistent with tendinopathy. A tenodesis was opted. This was a separate and distinct portion of the procedure. For these reasons, a CPT code modifier 59 will be added to this case. Implants used: I used a [employer] Comprehensive reverse total shoulder arthroplasty system with a size 12 press fit micro humeral stem, a +3 offset humeral tray and a standard humeral bearing, a 25 mm baseplate with 4 peripheral locking screws, and a size 40 mm eccentric glenosphere. Hugo arrived at [facility] for the above procedure. He was seen in the preoperative holding area and the operative extremity was identified and signed. He was given a preoperative antibiotic, TXA, and an interscalene nerve block. He was taken back to the operating room, laid on table in supine position, and put under general anesthesia. He was then put into the beachchair position. The shoulder was then prepped and draped in sterile fashion. A timeout was done and the patient and the operative extremity was properly identified. A deltopectoral approach was used. Dissection was taken down through the fascia and the deltoid was retracted laterally and the conjoined tendon was retracted medially. The anterior shoulder was exposed. The biceps groove was opened up and the biceps tendon was examined extensively. The biceps tendon demonstrated enlargement and inflammatory changes consistent with longstanding inflammation in the context of osteoarthritis and cuff arthropathy. The long head of the biceps tendon was then tenodesed to the upper border of the pectoralis major. This was a separate and distinct portion of the procedure. The subscapularis was then directly released off the lesser tuberosity with a peel technique. The inferior capsule was released and the humeral head was dislocated. A canal finding reamer was sent down the center of the humeral canal. Sequential reaming up to a size 12 reamer was done. Off that reamer, a proximal humeral resection guide was placed. The proximal humerus was resected at 135 of inclination and 25 of retroversion. Osteophytes were then removed and the glenoid was exposed. Time was spent doing a complete capsular and labral release. The glenoid guide was then placed in the inferior aspect of the glenoid. A 3.2 mm Steinmann pin was then placed into the glenoid vault at 10 of inclination. The glenoid baseplate was then reamed. The final size 25 mm baseplate was then impacted in the place. 4 peripheral locking screws were placed. A 40 mm eccentric glenosphere was then impacted into place. Surrounding soft tissues were then injected with 100 cc an orthopedic pain control cocktail. The proximal humerus was then exposed. Sequential broaching of the humerus up to a size 12 broach was done. Off that broach a +3 offset humeral tray was trialed. The shoulder was then reduced, brought through a full range of motion, and felt to be stable. The shoulder was then dislocated and the broach was removed. The final size 12 micro press-fit humeral stem was then impacted into place. A standard humeral bearing was then snapped onto a +3 offset humeral tray. The humeral tray was then impacted onto the humeral stem. The shoulder was once again reduced, brought through a full range of motion, and felt to be stable. The subscapularis was then tenodesed back to the lesser tuberosity with transosseous FiberWire sutures and side to side sutures with the arm in 45 of external rotation. A dilute betadyne lavage was then done for 3 minutes. The joint was then irrigated with normal saline solution. Hemostasis was obtained. The interval was closed with 2-0 Vicryl suture. The skin was then closed with 2-0 Vicryl and cathy. A Silverlon dressing was placed and the arm was rested in a regular arm sling. He was then extubated and transferred to a hospital bed. He taken to the postanesthesia care unit in stable condition. He tolerated the procedure well. Mann Corey PA-C, was present for the entire procedure. He was critical for patient positioning, prepping, draping, retraction exposure, wound closure and application of sterile dressing. I attest to the content of the Intraoperative Record and any orders documented therein. Any exceptions are noted below.
--- NOTE | 2022-09-02 12:59 | XRay Report ---
RIGHT SHOULDER 2 VIEWS CLINICAL HISTORY: Postoperative examination FINDINGS: 2 portable views of the right shoulder are compared to study dated 10/05/2021. The skeletal structures are osteopenic. A right shoulder arthroplasty is in near anatomic alignment. No acute fra cture is seen. There is chronic widening and degenerative change at the acromioclavicular joint. Skin clips, soft tissue gas, and edema overlying the right shoulder are expected postoperative changes. T he visualized right lung parenchyma appears clear noting basilar atelectasis. IMPRESSION: Expected postoperative findings status post right shoulder arthroplasty. No acute fractur e is seen. Electronically signed by: Abdullahi Carlton M.D. 09/02/2022 12:58 PM
--- NOTE | 2022-09-02 14:28 | Anesthesiology Progress Note ---
Date of Service September 02, 2022 Anesthesia Post Procedure Vital Signs Vital Signs: Temp Pulse Resp BP Pulse Ox O2 Del Method O2 Flow Rate 09/02/22 14:20 94 H 21 114/73 93 Nasal Cannula 2 09/02/22 14:05 95 H 24 121/76 94 Nasal Cannula 2 09/02/22 13:50 92 H 17 124/75 95 Nasal Cannula 2 09/02/22 13:35 87 22 117/69 94 Nasal Cannula 2 09/02/22 13:20 83 20 114/76 94 Nasal Cannula 2 09/02/22 13:10 36.5 C 81 18 131/76 95 Nasal Cannula 2 09/02/22 13:00 36.4 C L 82 17 110/67 93 Room Air 09/02/22 12:50 79 20 130/77 97 Oxymask 4 09/02/22 12:40 71 14 130/79 98 Oxymask 6 09/02/22 12:31 36.0 C L 73 16 130/79 97 Oxymask 8 09/02/22 09:49 36.6 C 87 16 150/103 H 96 Room Air Transfer of Care Handoff Completed per policy Notes Mental Status: alert / awake / arousable Patient Amnestic to Procedure: Yes Nausea / Vomiting: adequately controlled Pain: adequately controlled Airway Patency, RR, SpO2: stable & adequate BP & HR: stable & adequate Hydration State: stable & adequate Anesthetic Complications: no major complications apparent
[2022-09-02] MEDS ORDERED: METOCLOPRAMIDE HCL INJ 5 MG/ML 2 ML VIAL IV PRN (15:10)
[2022-09-02] MEDS ORDERED: HYDROmorphone INJ 0.5 MG/0.5 ML SYR IV PRN (15:10)
[2022-09-02] MEDS ORDERED: oxyCODONE HCL IR 5 MG TAB (IMMEDIATE RELEASE) PO PRN (15:10)
[2022-09-02] MEDS ORDERED: DIPHENHYDRAMINE ACETAMINOPHEN PO PRN (15:10)
[2022-09-02] MEDS ORDERED: NALOXONE HCL 0.4 MG/1 ML VIAL/CARP IV PRN (15:10)
[2022-09-02] MEDS ORDERED: predniSONE 20 MG TAB PO SCH (15:10)
[2022-09-02] MEDS ORDERED: MAGNESIUM HYDROXIDE SUSP 30 ML UDC PO PRN (15:10)
[2022-09-02] MEDS ORDERED: bisacodyL 10 MG SUPP PR PRN (15:10)
[2022-09-02] MEDS ORDERED: ACETAMINOPHEN 500 MG TAB PO PRN (15:20)
[2022-09-02] MEDS ORDERED: diphenhydrAMINE Capsule 25 MG CAP PO PRN (15:23)
[2022-09-02] MEDS: SODIUM CHLORIDE 0.9% 1000ML 1,000 ML IV SCH (16:29)
[2022-09-02] MEDS: KETOROLAC TROMETHAMINE 15 MG/ML VIAL IV SCH ×2 (16:29→21:13)
[2022-09-02] MEDS: ACETAMINOPHEN 500 MG TAB PO SCH ×2 (16:29→21:12)
[2022-09-02] MEDS: ceFAZolin 2000MG 2,000 MG/15 ML SYR IV SCH (18:14)
[2022-09-02] MEDS ORDERED: ASPIRIN 81 MG CHEW PO SCH (21:00)
[2022-09-02] MEDS ORDERED: SENNA 8.6 MG TAB PO SCH (21:00)
[2022-09-02] MEDS: PREGABALIN 150 MG CAP PO SCH (21:12)
[2022-09-02] MEDS: DULoxetine HCL 30 MG CAP PO SCH (21:13)
[2022-09-02] MEDS: DOCUSATE SODIUM 100 MG CAP PO SCH (21:25)
[2022-09-03] MEDS: SODIUM CHLORIDE 0.9% 1000ML 1,000 ML IV SCH (01:44)
[2022-09-03] MEDS: ceFAZolin 2000MG 2,000 MG/15 ML SYR IV SCH (02:55)
[2022-09-03] MEDS: KETOROLAC TROMETHAMINE 15 MG/ML VIAL IV SCH ×2 (02:55→08:31)
[2022-09-03] MEDS: ACETAMINOPHEN 500 MG TAB PO SCH (06:00)
--- NOTE | 2022-09-03 08:04 | Orthopedic Progress Note ---
Date of Service September 03, 2022 Assessment & Plan (1) Status post reverse total replacement of right shoulder: Overall he is doing very well. He is not having much pain in the right shoulder. He will be seen by physical therapy today for ambulation and range of motion exercises. He can be discharged home later today. He will follow-up orthopedics in 2 weeks. Miya Arias was seen and examined at bedside this morning. Overall he is doing very well. He is not having much pain in the right shoulder. He has no complaints.. Review of Systems All systems reviewed & are unremarkable except as noted in HPI & below. Physical Exam On physical examination of right shoulder, the dressing is clean and dry. He is wearing his sling as instructed. He has active motion of his hand and his wrist.. Results & Data Results & Data Laboratory Results . Diagnostic Findings Postoperative x-rays of the right shoulder show the prosthesis to be in anatomic alignment without any evidence of fracture, screws, or loosening. PG Care Time/CCT Total # of Minutes Spent Total Time Spent with Patient: Total time spent is greater than 50% in coordination of care (as documented) at patient's floor/unit and/or counseling patient: Coding Level of Care Code 07487 Post Operative Follow-Up Diagnoses Status post reverse total replacement of right shoulder Z96.611
--- NOTE | 2022-09-03 08:05 | Discharge Summary ---
Date of Service September 03, 2022 Admission HPI (Per Admitting) Hugo is a pleasant 67-year-old retired male who has been dealing with a 2-year history of increasing right shoulder pain. It now bothers him all the time. It wakes him up at night. He has trouble doing activities away from his body or up overhead. He does have a history of right shoulder arthroscopy done about 15 years ago at [facility]. X-rays and clinical examination have been diagnostic for advanced osteoarthritis of the right shoulder. After failing conservative treatment, he has elected proceed with a right reverse shoulder arthroplasty. Admission Exam (Per Admitting) On physical examination the right shoulder, he has about 60 degrees of abduction and 70 degrees of forward elevation. He is 30 degrees of external rotation and crepitus throughout range of motion.. Principal Diagnosis Same as "Discharge Diagnosis" noted below under Discharge Instructions. Discharge Exam On physical examination of right shoulder, the dressing is clean and dry. He is wearing his sling as instructed. He has active motion of his hand and his wrist.. Discharge Data Procedures Performed Operation Date: 09/02/22 11:40 Actual Procedures p Right Reverse Total Shoulder Arthroplasty, Uncemented(Right) - Mann Zeng DO Ordered Studies 09/02/22 05:00 US - OR guided needle placemen Routine Hospital Course (1) Status post reverse total replacement of right shoulder: On September 03, 2022 Hugo arrived at [facility] and underwent a right reverse shoulder replacement without complication. He had a general anesthetic and a right interscalene nerve block. Postoperatively he was placed in a sling and transferred to the general orthopedic floors. His hospital course was uneventful. On postop day #1, his vital signs are stable and his pain was well controlled. He was able to participate well with physical therapy doing ambulation and range of motion exercises. He was then discharged home. He will follow-up with orthopedics in 2 weeks. PG Care Time/CCT Total # of Minutes Spent Total Time Spent with Patient: Total time spent is greater than 50% in coordination of care (as documented) at patient's floor/unit and/or counseling patient: Discharge Plan Discharge Items Patient Disposition: Home - Home Health Services Reason For Visit: DJD Right Shoulder Discharge Diagnosis: Right reverse shoulder replacement Activity: Per Instructions section Non-emergency contact: Surgeon Call non-emergency contact if: your wound has increased redness and your wound has increased drainage Follow-up/Referrals: Diane Jauregui MD [Primary Care Provider] - Diet: Regular Addtl Attending Provider Instructions: Activity and Therapy Recommendations: * If you are using [facility] then therapy will be provided at your home until they feel you have accomplished all of your goals. * If you are using [facility] then Physical Therapy will be provided until they feel you are ready to start Outpatient Physical Therapy. * If you are not using home therapy then Outpatient Physical Therapy should start about 3-5 days from your day of surgery. Therapy will last about 8-12 weeks * Wear your sling for 3 weeks, unless otherwise instructed. You may remove your sling to shower and to dress, but otherwise, you should be in your sling at all times, including while sleeping * The shoulder replacement is very stable and you can use your hand while in the sling * You were shown a series of exercises in the hospital. Do these exercises daily including the exercises you were shown in physical therapy. Medications: * Narcotic You will likely be sent home from the hospital with a prescription for the narcotic pain medication that worked best throughout your stay. * Other medications may be prescribed for specific circumstances. If you have any questions, please call the office at . * Resume previous home medications unless otherwise instructed Dressing Care: Leave the Silverlon dressing in place for 7 days. After 7 days you may remove the dressing. If the incision is not draining then you may leave the cathy open to air. If there is a little bit of drainage or if the cathy are getting stuck on your clothing then cover the incision with a dry dressing. The cathy will be removed at your 2 week follow-up appointment. Showering: You may shower with the Silverlon dressing in place. Do not let the shower spray hit the dressing directly. Pat the Silverlon dressing dry. If the dressing becomes wet underneath, then simply remove the dressing. Keep the incision dry until you are 7 days out from the day of surgery. After 7 days you may remove the Silverlon dressing and shower with the cathy exposed. Let soapy water run over the cathy and pat them dry. Do not scrub or soak the incision. Things To Watch For: * Drainage from the incision site that occurs more than one week after your surgery. * Increased redness at the incision site. * Fever above 102 degrees Fahrenheit. * Unusual chest pain or shortness of breath. * Call [facility] at with any of the above problems Follow-Up Visit: Follow-up with Dr. Zeng's PA (Mann Corey) 2-3 weeks after your day of surgery. He will remove your cathy and answer any questions. If you have any additional questions or concerns, Dr Zeng is usually in the office at the same time and will be available An appointment was probably scheduled when you signed-up for surgery in the office. If you have any questions call More detailed instructions as well as Frequently Asked Questions were provided in a folder by our office when you signed-up for surgery. Please review these instructions when you get home. If you have any further questions or concerns, please feel free to call the office at [phone] Pending Studies at Discharge: No Stand-Alone Forms: My [facility] Medications and DC Order Prescriptions: New oxycodone-acetaminophen 5-325 mg tablet 1 tab PO Q6H PRN (Reason: pain) Qty: 30 0RF Continued duloxetine [Cymbalta] 30 mg capsule,delayed release(DR/EC) 30 mg PO BID Qty: 180 3RF hydrochlorothiazide 12.5 mg tablet 12.5 mg PO QAM Qty: 90 3RF aspirin [Aspirin Childrens] 81 mg tablet,chewable 81 mg PO QPM omega 9-axu-avu-fish oil [Fish Oil] 1,000 mg (120 mg-180 mg) capsule 1 cap PO QPM multivitamin tablet 1 tab PO QPM diphenhydramine-acetaminophen 50-500 mg tablet 1 tab PO .COMPLEX PRN (Reason: Allergy Symptoms) Rx Instructions: 1 tab PO PRN; psyllium husk [Daily Fiber] 0.4 gram capsule 0.4 g PO QPM prednisone 20 mg tablet See Rx Instructions PO .COMPLEX Qty: 30 0RF Rx Instructions: 3 tabs PO daily X 5 days, then 2 tabs PO daily X 5 days, then 1 tab PO daily X 5 days, then stop. pregabalin [Lyrica] 300 mg Capsule 300 mg PO BID meloxicam 15 mg tablet 15 mg PO QAM levothyroxine 100 mcg tablet 100 mcg PO QAM omeprazole 20 mg capsule,delayed release(DR/EC) 20 mg PO QAM lisinopril 40 mg tablet 40 mg PO QAM acetaminophen 500 mg Tablet 500 mg PO BID Discharge Orders: Discharge Order (Routine); Ordered 09/03/22 Ordered By: Mann Zeng Admission Data Admit Date/Time: 09/02/22 12:34 Attending Provider: Mann Zeng Admit Provider: Mann Zeng Primary Care Provider: Diane Jauregui
[2022-09-03] MEDS: DULoxetine HCL 30 MG CAP PO SCH (08:25)
[2022-09-03] MEDS: PREGABALIN 150 MG CAP PO SCH (08:26)
[2022-09-03] MEDS: DOCUSATE SODIUM 100 MG CAP PO SCH (08:26)
[2022-09-03] MEDS ORDERED: lisinopril 40 MG TAB PO SCH (09:00)
[2022-09-03] MEDS ORDERED: MULTIVITAMIN TAB PO SCH (09:00)
[2022-09-03] MEDS ORDERED: hydroCHLOROthiazide 25 MG TAB PO SCH (09:00)
[2022-09-03] MEDS ORDERED: LEVOTHYROXINE SODIUM 100 MCG TABLET PO SCH (09:00)
== END 2022-09-03 10:49 | disposition home health service (06) ==
LOC: PACUINP 09:12 → ASU 09:12 → 3W 15:08

== ENCOUNTER 2024-06-11 21:08 | Inpatient (IN) ==
--- NOTE | 2024-06-11 21:31 | Emergency Department Note ---
Impression & Plan Respiratory distress, acute, VUONG (dyspnea on exertion), Acute bronchitis ED Provider Note NAME: ÁNGEL LAMAS Sr AGE: 69 SEX: M : 1955 ARRIVES VIA: Ambulance INFORMANT: Patient, ED PROVIDER(S): Roger Novoa DO CHIEF COMPLAINT: Shortness of breath HPI: The patient is a 69-year-old male who presented to the emergency department for an evaluation of shortness of breath. The patient's had similar visits in the past. He was seen in our facility yesterday for similar complaints. He had a complete workup including CT of the chest. He was not diagnosed with any specific infection but started having a fever today and called 911. The patient denies having any hemoptysis. He denies having any lower extremity swelling. The patient does complain of chest pain especially with coughing. He denies having any abdominal pain. ROS: See above HPI for pertinent positives & negatives. A total of 10 systems reviewed and were otherwise negative. PAST MEDICAL HISTORY: See Below PAST SURGICAL HISTORY: See Below FAMILY HISTORY: See Below SOCIAL HISTORY: See Below HOME MEDICATIONS: See Below ALLERGIES: See Below VITALS: See Below PHYSICAL EXAMINATION: GENERAL: The patient is awake and alert. The patient is somewhat anxious appearing. EYES: The conjunctivae are clear. The pupils are round and reactive. EARS, NOSE, MOUTH AND THROAT: The nose is without any evidence of any deformity. NECK: The neck is nontender and supple. RESPIRATORY: Diminished breath sounds are noted throughout. There is mild conversational dyspnea as well as tachypnea. CARDIOVASCULAR: Regular rate and rhythm noted there no murmurs rubs or gallops normal S1 normal S2. GASTROINTESTINAL: The abdomen is soft. Abdomen is nontender. MUSCULOSKELETAL/EXTREMITIES: There is no evidence of gross deformity full range of motion is noted in the hips and shoulders. SKIN: There is no obvious evidence of any rash. There are no petechiae, pallor or cyanosis noted. NEUROLOGIC: Patient is awake alert and oriented x3 MEDICAL DECISION MAKING: The patient is a 69-year-old male who presented to the emergency department for an evaluation of difficulty breathing. The patient was seen in our facility recently with similar complaints. At that time he had a complete workup including CT of the chest. He was found have some inflammation in his airways however he was not having any specific symptoms that would be consistent with a pulmonary infection. He returns tonight with ongoing and worsening symptoms. He also was noted to have a fever at home by his significant other. I discussed patient's laboratory and radiographic studies with him. He was treated with IV antibiotics in the emergency department. He was also treated with DuoNeb therapy. Given his symptoms especially with exertion I discussed his condition with the on-call [facility] hospitalist. They have agreed to evaluate the patient in the emergency department for further management and disposition. Triage Nursing notes reviewed. Prior medical records reviewed Vital Signs: reviewed and remarkable for intermittent tachycardia and tachypnea. Differential diagnosis: Reactive airway disease, pneumonia, pneumothorax, COPD, CHF, infections, cardiac ischemia, pulmonary embolism, musculoskeletal, gastrointestinal, as well as other pathologies. ER treatment provided: See below Diagnostics interpreted by me: ECG: EKG was obtained in the emergency department. My interpretation is normal sinus rhythm at 94 bpm. There was no ectopy. There was no acute ST segment abnormalities noted. This was carried to a tracing from June 10, 2024. No significant changes were noted. Cardiac Monitoring: An order was placed for continuous cardiac monitoring. The monitor shows a rate of 92 bpm with sinus rhythm. Laboratory studies: As stated above and show below. Imaging studies: See below. Radiographic imaging was reviewed by myself Consultation(s): I discussed this case with Dr. Richardson who is on-call for the [facility] hospitalist group. Past Med/Surg History Problem List (Updated 06/12/24 @ 01:48 by Radha Shipman MD) Respiratory distress, acute Pneumonia Aneurysm, thoracic aortic (Acute) Elevated serum creatinine (Acute) Shortness of breath (Acute) Rotator cuff arthropathy of left shoulder Left shoulder pain Encounter for examination following treatment at hospital Decreased stamina Dyspnea on exertion Status post right hip replacement (~03/2023) Hypertension (Chronic) Back pain (Acute) Left sided chest pain (Acute) Lumbar disc disease Pulmonary nodules (Acute) Aortic dilatation (Acute) Arthralgia of multiple sites (Acute) Benign essential hypertension (Chronic) Hypothyroidism (Chronic) Nightmares (Chronic) Pain of right lower extremity (Chronic) Routine health maintenance (Chronic) Elevated hemoglobin A1c (Acute) ED (erectile dysfunction) (Chronic) Rash Hx of tuberculosis Routine health maintenance Essential tremor Chronic right shoulder pain Tick bite of left thigh Plant dermatitis Laceration of left index finger Encounter for immunization Positive fecal occult blood test [facility] (faxed to me). Encounter for pre-operative examination Status post reverse total replacement of right shoulder (~08/2022) Fatigue Chronic kidney disease, stage III (moderate) Hypertension Vitamin D deficiency Radicular low back pain (Acute) Chronic reflux esophagitis (Chronic) controlled, stable per pt Medical History CKD (chronic kidney disease) Baseline creat 2.1 per nephro- Dr Teresa Hypothyroidism HLD (hyperlipidemia) HTN (hypertension) controlled, stable per pt Tuberculosis hx 40 years ago - treated; denies active cough, weight loss, night sweats or hemoptysis Surgical History History of tonsillectomy and adenoidectomy History of surgery left biceps repair History of back surgery History of colonoscopy History of shoulder surgery BL History of ankle surgery Rt Family History Mother Diabetes Heart disease Sister Ovarian cancer Father Heart disease Myocardial infarction Other No family history of adverse response to anesthesia Denies family history of Prostate cancer Breast cancer Colorectal cancer Social History Smoking Status: Never smoker Second Hand Exposure: No; Do You Dip or Chew Tobacco: No; Hx Alcohol Use: No Hx Substance Use: No Preferred Language: Ghanaian Communication Ability: Effective Visual Impairment: Limited Hearing Ability: Normal Social Science Professor Required: No Beliefs That Will Affect Care: None marital status: Current Living Situation: Family current occupational status: retired How many Children do You have: 4 Feels Safe at Home: Yes Childhood Exposure to Second-Hand Smoke: No Diet: regular caffeine: Yes (coffee and tea.) during the past year weight has: increased > 10 lbs Dental Care, Regularly: No Physical Activity Frequency: Daily Seatbelt Use: always Sunscreen Use: No Do you think of yourself as: straight/heterosexual Gender Identity: Male Assistive Devices: Cane and Glasses Allergies Allergies Allergy/AdvReac Type Severity Reaction Status Date / Time No Known Allergies Allergy Mild Verified 06/10/24 11:46 Home Meds Home Medications Medication Instructions Recorded Confirmed multivitamin 1 tab PO QPM 04/20/19 06/12/24 omega 3-izc-knq-fish oil 1,000 mg 1,200 cap PO QPM 04/20/19 06/12/24 (120 mg-180 mg) capsule (Fish Oil) psyllium husk 0.4 gram capsule 0.4 g PO QPM 06/29/22 06/12/24 (Daily Fiber) acetaminophen 500 mg tablet 1,000 mg PO BID PRN Pain 07/20/23 06/12/24 (Tylenol Extra Strength) aspirin 81 mg tablet,delayed 81 mg PO DAILY 07/20/23 06/12/24 release diphenhydramine HCl 25 mg capsule 50 mg PO HS sleep 07/20/23 06/12/24 (Allergy (diphenhydramine)) calcium carbonate (Tums) 200 mg PO DAILY PRN Acid Reflux 09/05/23 06/12/24 magnesium 250 mg tablet 0 mg PO DAILY 06/12/24 06/12/24 Previous Rx's Medication Instructions Recorded omeprazole 20 mg capsule,delayed 20 mg PO DAILY #90 caps 11/27/23 release levothyroxine 100 mcg tablet 100 mcg PO QAM #90 tabs 12/14/23 duloxetine 30 mg capsule,delayed 30 mg PO BID #180 caps 12/26/23 release (Cymbalta) lisinopril 40 mg tablet 40 mg PO QAM #90 tabs 01/02/24 sildenafil 100 mg tablet 100 mg PO DAILY PRN sexual 03/12/24 activity #10 tabs pregabalin 300 mg capsule (Lyrica) 300 mg PO BID #180 caps 06/03/24 Results & Data (ED) Vital Signs Vital Signs - 24 hr 06/11/24 21:11 06/11/24 21:26 06/11/24 21:40 Temperature 36.9 C Temperature Source Temporal Artery Scan Pulse Rate 98 H 93 H Pulse Rate [Apical] 97 H Respiratory Rate 19 26 H Respiratory Effort / Characteristics Non-Labored Spontaneous Respiratory Depth Normal Blood Pressure 128/80 Blood Pressure [Right Arm] 143/93 H Blood Pressure Mean 96 Blood Pressure Mean [Right Arm] 109 Pulse Oximetry 95 94 Oxygen Delivery Method Room Air Room Air Sepsis Recent Fever Within 48 Hours No Sepsis New/Unexplained Change in Mental Status N/A Sepsis Action Taken by Nursing No Action Required 06/11/24 22:00 06/11/24 22:30 06/11/24 23:46 Temperature Temperature Source Pulse Rate 101 H 107 H Pulse Rate [Apical] 106 H Respiratory Rate 26 H 23 25 H Respiratory Effort / Characteristics Respiratory Depth Blood Pressure 132/99 147/88 H Blood Pressure [Right Arm] 129/88 Blood Pressure Mean 110 107 Blood Pressure Mean [Right Arm] 101 Pulse Oximetry 93 92 92 Oxygen Delivery Method Room Air Room Air Room Air Sepsis Recent Fever Within 48 Hours Sepsis New/Unexplained Change in Mental Status Sepsis Action Taken by Nursing 06/12/24 00:55 Temperature Temperature Source Pulse Rate Pulse Rate [Apical] 105 H Respiratory Rate 32 H Respiratory Effort / Characteristics Non-Labored Respiratory Depth Normal Blood Pressure Blood Pressure [Right Arm] Blood Pressure Mean Blood Pressure Mean [Right Arm] Pulse Oximetry 92 Oxygen Delivery Method Room Air Sepsis Recent Fever Within 48 Hours Sepsis New/Unexplained Change in Mental Status Sepsis Action Taken by Correction Medications Current Medication List: was personally reviewed by me Laboratory Data Attestation: I reviewed the patient's lab results. 06/11/24 20:45 06/11/24 20:45 Lab Results 06/11/24 06/11/24 06/11/24 Range/Units 20:45 23:07 Unknown WBC 7.99 (4.8-10.8) K/ul RBC 4.65 L (4.70-6.10) M/uL Hgb 13.7 L (14.0-18.0) g/dl Hct 42.0 (42.0-52.0) % MCV 90.3 (80.0-100.0) fL MCH 29.5 (25.0-34.0) pg MCHC 32.6 (32.0-36.0) g/dL RDW Std Deviation 51.8 H (36.4-46.3) fL RDW Coeff of Reji 15.9 H (11.5-14.5) % Plt Count 135 (130-400) K/uL MPV 11.2 (9.4-12.4) fL Immature Gran % (Auto) 0.4 % Neut % (Auto) 72.1 % Lymph % (Auto) 11.1 % Weld % (Auto) 5.8 % Eos % (Auto) 10.1 % Baso % (Auto) 0.5 % Neut # (Auto) 5.76 (1.40-6.50) K/uL Lymph # (Auto) 0.89 L (1.20-3.40) K/uL Weld # (Auto) 0.46 (0.11-0.59) K/uL Eos # (Auto) 0.81 H (0.00-0.50) K/uL Baso # (Auto) 0.04 (0.00-0.20) K/uL Immature Gran # (Auto) 0.03 (0.01-0.20) K/uL PT Cancelled 11.0 INR Cancelled 1.0 APTT Cancelled 27 PTT Ratio Cancelled 1.0 Sodium 141 (136-145) mmol/L Potassium 4.5 (3.5-5.1) mmol/L Chloride 107 (98-107) mmol/L Carbon Dioxide 25 (21-32) mmol/L Anion Gap 9 (3-11) BUN 29 H (6-23) mg/dl Creatinine 1.88 H (0.6-1.4) mg/dl Est Cr Clr Drug Dosing Not Reportable Est GFR ( Amer) 40.7 ml/min Est GFR (Non-Af Amer) 35.1 ml/min BUN/Creatinine Ratio 15.4 (10-20) Glucose 107 H (70-99(Fasting)) mg/dl Calcium 9.1 (8.6-10.3) mg/dl Total Bilirubin 1.0 (0.2-1.0) mg/dl AST 26 (13-39) U/L ALT 26 (7-52) U/L Alkaline Phosphatase 62 (34-104) U/L Troponin I High Sens 14.9 (0-20) pg/ml C-Reactive Protein 14.64 H (0-0.5) mg/dl Total Protein 7.0 (6.0-8.3) gm/dl Albumin 3.8 (3.4-5.0) gm/dl Globulin 3.2 (2.5-4.0) gm/dl Albumin/Globulin Ratio 1.2 (0.9-2) Procalcitonin 0.08 (0-0.5) ng/ml Adenovirus (PCR) Not Detected (NotDetected) B. pertussis DNA (PCR) Not Detected (NotDetected) B.parapertussis DNA PCR Not Detected (NotDetected) C. pneumoniae DNA (PCR) Not Detected (NotDetected) Coronavirus OC43 (PCR) Not Detected (NotDetected) Coronavirus HKU1 (PCR) Not Detected (NotDetected) Coronavirus 229E (PCR) Not Detected (NotDetected) SARS-CoV-2 (PCR) Not Detected (NotDetected) Coronavirus NL63 (PCR) Not Detected (NotDetected) Human Metapneumovir PCR Not Detected (NotDetected) Influenza Type A (PCR) Not Detected (NotDetected) Influenza Type B (PCR) Not Detected (NotDetected) M. pneumoniae (PCR) Not Detected (NotDetected) Parainfluenza 1 (PCR) Not Detected (NotDetected) Parainfluenza 2 (PCR) Not Detected (NotDetected) Parainfluenza 3 (PCR) Not Detected (NotDetected) Parainfluenza 4 (PCR) Not Detected (NotDetected) RSV (PCR) Not Detected (NotDetected) Entero/Rhino (PCR) Not Detected (NotDetected) Administered Medications Discontinued Medications Acetaminophen (Acetaminophen 325 Mg Tab) 650 mg PO NOW STA Stop: 06/12/24 00:39 Last Admin: 06/12/24 00:53 Dose: 650 mg Documented By: ARVIND Albuterol (Albut/Ipratrop 3mg/0.5mg Neb 3 Ml Vial) 3 ml NEB NOW STA; Protocol Stop: 06/11/24 21:26 Last Admin: 06/11/24 21:45 Dose: 3 ml Documented By: DILLON Ceftriaxone Sodium (Rocephin) 2,000 mg in 50 mls @ 100 mls/hr IV NOW STA Stop: 06/12/24 01:07 Last Infusion: 06/12/24 01:14 Dose: Infused Documented By: Admin: 06/12/24 00:51 Dose: 100 mls/hr Documented By: ARVIND Imaging Data Attestation: I personally reviewed and interpreted this imaging study as follows: My Impression: 1 view chest x-ray was obtained in the emergency department. My interpretation is no free air or definite infiltrate, final report below. Discharge Plan Visit Data Chief Complaint: Shortness of Breath/Dyspnea Stated Complaint: SOB ED Provider: Roger Novoa Discharge Problem: Respiratory distress, acute, VUONG (dyspnea on exertion), Acute bronchitis Patient Disposition: Being Evaluated by Hospitalist Forms Stand Alone Forms: My [facility] Prescriptions Prescriptions: No Action omeprazole 20 mg capsule,delayed release(DR/EC) 20 mg PO DAILY Qty: 90 1RF levothyroxine 100 mcg tablet 100 mcg PO QAM Qty: 90 3RF duloxetine [Cymbalta] 30 mg capsule,delayed release(DR/EC) 30 mg PO BID Qty: 180 3RF lisinopril 40 mg tablet 40 mg PO QAM Qty: 90 1RF pregabalin [Lyrica] 300 mg capsule 300 mg PO BID Qty: 180 2RF sildenafil 100 mg tablet 100 mg PO DAILY PRN (Reason: sexual activity) Qty: 10 4RF Rx Instructions: administer 30 minutes to 4 hours before activity calcium carbonate [Tums] 200 mg calcium (500 mg) tablet,chewable 200 mg PO DAILY PRN (Reason: Acid Reflux) diphenhydramine HCl [Allergy (diphenhydramine)] 25 mg capsule 50 mg PO HS omega 3-xtd-xgp-fish oil [Fish Oil] 1,000 mg (120 mg-180 mg) capsule 1,200 cap PO QPM multivitamin tablet 1 tab PO QPM Rx Instructions: with iron psyllium husk [Daily Fiber] 0.4 gram capsule 0.4 g PO QPM aspirin 81 mg tablet,delayed release (DR/EC) 81 mg PO DAILY acetaminophen [Tylenol Extra Strength] 500 mg tablet 1,000 mg PO BID PRN (Reason: Pain) Rx Instructions: 1,000 mg orally BiD PRN; magnesium 250 mg Tablet 0 mg PO DAILY Referrals Referrals: Diane Jauregui MD [Primary Care Provider] - Discharge Problem: Acute bronchitis Qualifiers: Bronchitis organism: unspecified organism Qualified Code(s): J20.9 - Acute bronchitis, unspecified
[2024-06-11] MEDS: ALBUT/IPRATROP 3MG/0.5MG NEB 3 ML VIAL NEB STA (21:45)
[2024-06-11 21:51] LABS: Basophils # (auto) 0.04 K/uL (0.00-0.20); Basophils % (auto) 0.5 %; Eosinophils # (auto) 0.81 K/uL (0.00-0.50); Eosinophils % (auto) 10.1 %; Hemoglobin 13.7 g/dl (14.0-18.0); Immature Granulocytes # (auto) 0.03 K/uL (0.01-0.20); Immature Granulocytes % (auto) 0.4 %; Lymphocytes # (auto) 0.89 K/uL (1.20-3.40); Lymphocytes % (auto) 11.1 %; Mean Corpuscular Hemoglobin 29.5 pg (25.0-34.0); Mean Corpuscular Hgb Conc 32.6 g/dL (32.0-36.0); Mean Corpuscular Volume 90.3 fL (80.0-100.0); Mean Platelet Volume 11.2 fL (9.4-12.4); Monocytes # (auto) 0.46 K/uL (0.11-0.59); Monocytes % (auto) 5.8 %; Neutrophils # (auto) 5.76 K/uL (1.40-6.50); Neutrophils % (auto) 72.1 %; Platelet Count 135 K/uL (130-400); RDW Coefficient of Variation 15.9 % (11.5-14.5); RDW Standard Deviation 51.8 fL (36.4-46.3); Red Blood Count 4.65 M/uL (4.70-6.10); White Blood Count 7.99 K/ul (4.8-10.8)
[2024-06-11 22:12] LABS: Alanine Aminotransferase 26 U/L (7-52); Albumin Globulin Ratio 1.2 (0.9-2); Albumin Level 3.8 gm/dl (3.4-5.0); Alkaline Phosphatase 62 U/L (34-104); Anion Gap 9 (3-11); Aspartate Aminotransferase 26 U/L (13-39); BUN Creatinine Ratio 15.4 (10-20); Blood Urea Nitrogen 29 mg/dl (6-23); Calcium 9.1 mg/dl (8.6-10.3); Carbon Dioxide 25 mmol/L (21-32); Chloride 107 mmol/L (98-107); Est GFR (African American) 40.7 ml/min; Est GFR (Non-African American) 35.1 ml/min; Globulin 3.2 gm/dl (2.5-4.0); Glucose 107 mg/dl (70-99(Fasting)); Potassium 4.5 mmol/L (3.5-5.1); Sodium 141 mmol/L (136-145)
[2024-06-11 22:20] LABS: Troponin I High Sensitivity 14.9 pg/ml (0-20)
[2024-06-11 23:24] LABS: Adenovirus PCR Not Detected (NotDetected); Bordetella parapertussis PCR Not Detected (NotDetected); Bordetella pertussis PCR Not Detected (NotDetected); Chlamydia pneumoniae PCR Not Detected (NotDetected); Coronavirus 229E PCR Not Detected (NotDetected); Coronavirus CoV-2 (COVID19)PCR Not Detected (NotDetected); Coronavirus HKU1 PCR Not Detected (NotDetected); Coronavirus NL63 PCR Not Detected (NotDetected); Coronavirus OC43PCR Not Detected (NotDetected); Human Metapneumovirus PCR Not Detected (NotDetected); Influenza A PCR Not Detected (NotDetected); Influenza B PCR Not Detected (NotDetected); Mycoplasma pneumoniae PCR Not Detected (NotDetected); Parainfluenza Virus 1 PCR Not Detected (NotDetected); Parainfluenza Virus 2 PCR Not Detected (NotDetected); Parainfluenza Virus 3 PCR Not Detected (NotDetected); Parainfluenza Virus 4 PCR Not Detected (NotDetected); Respiratory Syncytial VirusPCR Not Detected (NotDetected); Rhinovirus/Enterovirus PCR Not Detected (NotDetected)
[2024-06-12 00:14] LABS: Partial Thromboplastin Time 27 Seconds (21-31)
[2024-06-12 00:27] LABS: C Reactive Protein 14.64 mg/dl (0-0.5)
[2024-06-12] MEDS: cefTRIAXone SODIUM 2,000 MG/50 ML BAG IV STA (00:51)
[2024-06-12] MEDS: ACETAMINOPHEN 325 MG TAB PO STA (00:53)
--- NOTE | 2024-06-12 01:34 | History & Physical Report ---
Date of Service June 12, 2024 Assessment & Plan (1) Respiratory distress, acute: Plan: Tachypneic, retractions, increased work of breathing. No hypoxia. BioFire neg. Procal neg. CRP elevated. No leukocytosis or fever. Had workup yesterday that was negative for PE. Started on CTX in the ED. Will add azithromycin for anti- inflammatory effect. Steroids for poison mayela recently discontinued, may have been masking fevers. Would not add back steroids at present. May also be a component of constipation. Miralax scheduled 17 gm daily. Azithromycin 500 mg x1, 250 x 4 Continue CTX while inpatient, can likely d/c with cefdinir BNP, VBG ordered duonebs PRN, IS, oxygen if needed for supportive care (2) Pneumonia: (3) Dyspnea on exertion: (4) Essential tremor: Plan: Chronic with exacerbation from nebs. (5) Hypertension: Plan: Held lisinopril on admit as pressures WNL. Can add back if persistently hypertensive. (6) Constipation: Plan: Chronic condition. Scheduled miralax, can increase if ineffective Plan Hypothyroidism: continue home levothyroxine Chronic pain: continue duloxetine and Lyrica CKDIII: stable, at baseline GERD: continue home omeprazole Insomnia: chronically takes benadryl 50 mg nightly, would recommend switching to hydroxyzine as there are less side effects Code status: full DVT ppx: Lovenox FENGI: heart healthy Dispo: tele unit History of Present Illness Chief Complaint: shortness of breath Primary Care Provider: Diane Jauregui MD Patient re-presents to the ED for continued shortness of breath. Patient was seen in outpatient office 06/10 - with mildly increased work of breathing patient was directed to the ED. Workup with BioFire, CTA, and CXR unremarkable. Patient was discharged home. Today he developed fevers and returned to the ED. Symptoms have been ongoing for about a week. Of note he was placed on a steroid taper for moderate to severe poison mayela. Last dose yesterday. No CP. Does feel short of breath especially with ambulation. Has been feeling lightheaded from coughing/shortness of breath. No nausea, vomiting, or diarrhea. No CP or headaches. Is constipated. Last BM hard this AM. Allergies Allergy/AdvReac Type Severity Reaction Status Date / Time No Known Allergies Allergy Mild Verified 06/10/24 11:46 Home Medications Medication Instructions Recorded Confirmed Type multivitamin 1 tab PO QPM 04/20/19 06/12/24 History omega 7-ijw-tym-fish oil 1,000 mg 1,200 cap PO QPM 04/20/19 06/12/24 History (120 mg-180 mg) capsule (Fish Oil) psyllium husk 0.4 gram capsule 0.4 g PO QPM 06/29/22 06/12/24 History (Daily Fiber) acetaminophen 500 mg tablet 1,000 mg PO BID PRN Pain 07/20/23 06/12/24 History (Tylenol Extra Strength) aspirin 81 mg tablet,delayed 81 mg PO DAILY 07/20/23 06/12/24 History release diphenhydramine HCl 25 mg capsule 50 mg PO HS sleep 07/20/23 06/12/24 History (Allergy (diphenhydramine)) calcium carbonate (Tums) 200 mg PO DAILY PRN Acid Reflux 09/05/23 06/12/24 History omeprazole 20 mg capsule,delayed 20 mg PO DAILY #90 caps 11/27/23 06/12/24 Rx release levothyroxine 100 mcg tablet 100 mcg PO QAM #90 tabs 12/14/23 06/12/24 Rx duloxetine 30 mg capsule,delayed 30 mg PO BID #180 caps 12/26/23 06/12/24 Rx release (Cymbalta) lisinopril 40 mg tablet 40 mg PO QAM #90 tabs 01/02/24 06/12/24 Rx sildenafil 100 mg tablet 100 mg PO DAILY PRN sexual 03/12/24 06/12/24 Rx activity #10 tabs pregabalin 300 mg capsule (Lyrica) 300 mg PO BID #180 caps 06/03/24 06/12/24 Rx magnesium 250 mg tablet 0 mg PO DAILY 06/12/24 06/12/24 History Past Med/Surg History Problem List Constipation Respiratory distress, acute Pneumonia Aneurysm, thoracic aortic (Acute) Elevated serum creatinine (Acute) Shortness of breath (Acute) Rotator cuff arthropathy of left shoulder Left shoulder pain Encounter for examination following treatment at hospital Decreased stamina Dyspnea on exertion Status post right hip replacement (~03/2023) Hypertension (Chronic) Back pain (Acute) Left sided chest pain (Acute) Lumbar disc disease Pulmonary nodules (Acute) Aortic dilatation (Acute) Arthralgia of multiple sites (Acute) Benign essential hypertension (Chronic) Hypothyroidism (Chronic) Nightmares (Chronic) Pain of right lower extremity (Chronic) Routine health maintenance (Chronic) Elevated hemoglobin A1c (Acute) ED (erectile dysfunction) (Chronic) Rash Hx of tuberculosis Routine health maintenance Essential tremor Chronic right shoulder pain Tick bite of left thigh Plant dermatitis Laceration of left index finger Encounter for immunization Positive fecal occult blood test [facility] (faxed to me). Encounter for pre-operative examination Status post reverse total replacement of right shoulder (~08/2022) Fatigue Chronic kidney disease, stage III (moderate) Hypertension Vitamin D deficiency Radicular low back pain (Acute) Chronic reflux esophagitis (Chronic) controlled, stable per pt Medical History CKD (chronic kidney disease) Baseline creat 2.1 per nephro- Dr Teresa Hypothyroidism HLD (hyperlipidemia) HTN (hypertension) controlled, stable per pt Tuberculosis hx 40 years ago - treated; denies active cough, weight loss, night sweats or hemoptysis Surgical History History of tonsillectomy and adenoidectomy History of surgery left biceps repair History of back surgery History of colonoscopy History of shoulder surgery BL History of ankle surgery Rt Family History Mother Diabetes Heart disease Sister Ovarian cancer Father Heart disease Myocardial infarction Other No family history of adverse response to anesthesia Denies family history of Prostate cancer Breast cancer Colorectal cancer Social History Smoking Status: Never smoker Second Hand Exposure: No; Do You Dip or Chew Tobacco: No; Hx Alcohol Use: No Hx Substance Use: No Preferred Language: Vincentian Communication Ability: Effective Visual Impairment: Limited Hearing Ability: Normal Editor Index Required: No Beliefs That Will Affect Care: None marital status: Current Living Situation: Family current occupational status: retired How many Children do You have: 4 Feels Safe at Home: Yes Childhood Exposure to Second-Hand Smoke: No Diet: regular caffeine: Yes (coffee and tea.) during the past year weight has: increased > 10 lbs Dental Care, Regularly: No Physical Activity Frequency: Daily Seatbelt Use: always Sunscreen Use: No Do you think of yourself as: straight/heterosexual Gender Identity: Male Assistive Devices: Cane and Glasses Review of Systems 2 Review of Systems: See HPI Physical Exam 2 Physical Exam: Gen: anxious appearing patient in NAD, mildly increased work of breathing HEENT: AT NC MMM Resp: diminished breath sounds most prominent in LLL, no obvious wheezing or rhonchi, mild to moderate increased work of breathing, + belly breathing, ?retractions CV: tachycardic, regular rhythm, no murmurs, clinically well perfused Abd: +BS, soft, non-tender, non-distended MSK: no obvious deformities Skin: no rashes or bruising Neuro: alert and oriented Psych: appropriate mood and affect Results & Data Results & Data Vital Signs (Past 12 Hours) Vital Signs Temp Pulse Pulse Resp BP BP Pulse Ox 06/12/24 00:55 105 H 32 H 92 06/11/24 23:46 106 H 25 H 129/88 92 06/11/24 22:30 107 H 23 147/88 H 92 06/11/24 22:00 101 H 26 H 132/99 93 06/11/24 21:40 93 H 06/11/24 21:26 97 H 26 H 143/93 H 94 06/11/24 21:11 36.9 C 98 H 19 128/80 95 O2 Del Method 06/12/24 00:55 Room Air 06/11/24 23:46 Room Air 06/11/24 22:30 Room Air 06/11/24 22:00 Room Air 06/11/24 21:40 06/11/24 21:26 Room Air 06/11/24 21:11 Room Air Laboratory Results 06/11/24 20:45 06/11/24 20:45 Code Status & VTE Plan VTE Prophylaxis Plan VTE Prophylaxis will be ordered: Yes Supervising Physician Co-Signing Physician Notes Patient seen and examined, chart reviewed, case discussed with Dr. Shipman and I agree with the assessment and plan as above Resident Activity Tracking Resident Involvement: Resident Care Provided Care Provided: Adult Hospital Medicine
[2024-06-12] MEDS: AZITHROMYCIN 250 MG TAB PO ONE (02:12)
[2024-06-12] MEDS: SODIUM CHLORIDE 0.9% 500 ML IV ONE (02:12)
[2024-06-12] MEDS ORDERED: ONDANSETRON INJ 2 MG/ML 2 ML VIAL IV PRN (02:18)
[2024-06-12] MEDS ORDERED: ALUMINUM/MAGNESIUM SUSP 30 ML UDC PO PRN (02:18)
[2024-06-12 02:39] LABS: Base Excess VBG 2.5 mEq/L; HCO3 VBG 28 mmol/L; Oxygen Saturation VBG < 60.0 %; PCO2 VBG 45 mmHg (38-50); PO2 VBG 31 mmHg
[2024-06-12 02:47] LABS: Hemoglobin 12.6 g/dl (14.0-18.0); Mean Corpuscular Hemoglobin 28.8 pg (25.0-34.0); Mean Corpuscular Hgb Conc 31.5 g/dL (32.0-36.0); Mean Corpuscular Volume 91.5 fL (80.0-100.0); Mean Platelet Volume 10.8 fL (9.4-12.4); Platelet Count 127 K/uL (130-400); RDW Coefficient of Variation 15.8 % (11.5-14.5); RDW Standard Deviation 53.1 fL (36.4-46.3); Red Blood Count 4.37 M/uL (4.70-6.10)
[2024-06-12 03:06] LABS: BUN Creatinine Ratio 14.9 (10-20); Calcium 8.1 mg/dl (8.6-10.3); Creatinine Clr Calc Pharmacy 43.2 ml/min; Est GFR (Non-African American) 33.6 ml/min; Potassium 4.8 mmol/L (3.5-5.1)
--- NOTE | 2024-06-12 05:54 | Billing Data ---
Date of Service June 12, 2024 Coding Level of Care Code 05266 INT INP/OBS CARE
[2024-06-12] MEDS: ENOXAPARIN INJ 40 MG/0.4 ML SYR SQ SCH (06:14)
[2024-06-12] MEDS: LEVOTHYROXINE SODIUM 100 MCG TABLET PO SCH (06:14)
[2024-06-12] MEDS: ASPIRIN 81 MG ECTAB PO SCH (08:27)
[2024-06-12] MEDS: POLYETHYLENE (MIRALAX) 17 GM PACK PO SCH (08:27)
[2024-06-12] MEDS: PANTOprazole 40 MG TAB PO SCH (08:27)
[2024-06-12] MEDS: DULoxetine HCL 30 MG CAP PO SCH (08:28)
--- NOTE | 2024-06-12 08:31 | XRay Report ---
SINGLE VIEW CHEST CLINICAL HISTORY: Atypical chest pain. FINDINGS: An AP upright chest radiograph is compared to study chest x-ray and chest CT 06/10/2024. The examination is degraded by apical lordotic positioning. The cardiomediastinal silhouette is unremark able. Chronic interstitial thickening is similar to previous. There is bibasilar scarring/atelectasis . No airspace consolidation or large pleural effusion is identified. No pneumothorax is seen. The ske letal structures are osteopenic. The bony thorax is grossly intact. A right shoulder arthroplasty is in place. Arthritic change is seen in the left shoulder. IMPRESSION: Cardiomegaly with no active disease in the chest. ACT 112: Negative or not required by law. Electronically signed by: Abdullahi Carlton M.D. 06/12/2024 8:29 AM
[2024-06-12] MEDS: PREGABALIN 150 MG CAP PO SCH (08:32)
--- NOTE | 2024-06-12 09:16 | Hospitalist Progress Note ---
Date of Service June 12, 2024 Assessment & Plan (1) Respiratory distress, acute: Plan: Tachypneic, retractions, increased work of breathing. No hypoxia. BioFire neg. Procal neg. CRP elevated. No leukocytosis or fever. Had workup yesterday that was negative for PE may show mild pneumonitis Ceftriaxone and azithromycin for anti-inflammatory effect. Steroids for poison mayela recently discontinued, may have been masking fevers. Would not add back steroids at present. Azithromycin 500 mg x1, 250 x 4 Continue CTX while inpatient, duonebs PRN, IS, oxygen if needed for supportive care given history of progressive dyspnea on exertion without significant abnormality seen on initial testing, patient will have resting echo and stress echo on 06/13. Will add a troponin in the a.m. and certainly follow them on monitor overnight (2) Essential tremor: Plan: Chronic with exacerbation from nebs. (3) Hypertension: Plan: Held lisinopril on admit as pressures WNL. Can add back if persistently hypertensive. (4) Constipation: Plan: Chronic condition. Scheduled miralax, can increase if ineffective Plan Hypothyroidism: continue home levothyroxine Chronic pain: continue duloxetine and Lyrica CKDIII: stable, at baseline GERD: continue home omeprazole Insomnia: chronically takes benadryl 50 mg nightly, would recommend switching to hydroxyzine as there are less side effects Code status: full DVT ppx: Lovenox Admission and Anticipated Discharge Date Admission Date: June 12, 2024 Subjective Patient seen in the company of his presents with dyspnea. Reportedly was too dyspneic to leave his tent at the [facility]. relates a history to progressive dyspnea preceding his event at the [facility] where he had to stop and rest while mowing the grass. He denies having chest discomfort during this time. He has not been somewhat used tobacco, last cholesterol checked in February 2024 shows total cholesterol 203 LDL of 113, does have a family history of heart disease Initial EKG and troponins are without concern for acute coronary syndrome Physical Exam Physical Exam: Patient is anxious and fearful. Card exam is regular without murmurs no lymphadenopathy in his neck no JVD Lung exam is clear without wheezes or crackles Abdomen normal active bowel sounds soft no bruits Extremities without edema, good pulses in his extremities good sensation of the extremities Results & Data Results & Data Vital Signs (Past 12 Hours) Vital Signs Temp Pulse Pulse Resp BP BP Pulse Ox 06/12/24 06:58 87 06/12/24 03:37 80 22 132/79 93 06/12/24 02:27 88 22 93 06/12/24 01:59 19 139/86 95 06/12/24 01:59 93 06/12/24 00:55 105 H 32 H 92 06/11/24 23:46 106 H 25 H 129/88 92 06/11/24 22:30 107 H 23 147/88 H 92 06/11/24 22:00 101 H 26 H 132/99 93 06/11/24 21:40 93 H 06/11/24 21:26 97 H 26 H 143/93 H 94 06/11/24 21:11 98.4 F 98 H 19 128/80 95 O2 Del Method 06/12/24 06:58 06/12/24 03:37 Room Air 06/12/24 02:27 Room Air 06/12/24 01:59 Room Air 06/12/24 01:59 Room Air 06/12/24 00:55 Room Air 06/11/24 23:46 Room Air 06/11/24 22:30 Room Air 06/11/24 22:00 Room Air 06/11/24 21:40 06/11/24 21:26 Room Air 06/11/24 21:11 Room Air Laboratory Results Reviewed CBC reviewed chemistry reviewed coagulation studies reviewed VBG reviewed troponin with repeat reviewed Diagnostic Findings Pending echocardiogram Likely treadmill stress test on 06/13/2024 PG Care Time/CCT Total # of Minutes Spent Total Time Spent with Patient: Total time spent is greater than 50% in coordination of care (as documented) at patient's floor/unit and/or counseling patient: Coding Level of Care Code 32600 SUB INP/OBS CARE 3/50MIN Diagnoses Respiratory distress, acute R06.03 Essential tremor G25.0 Hypertension I10 Constipation K59.00
[2024-06-12] MEDS: ACETAMINOPHEN 325 MG TAB PO PRN (13:58)
[2024-06-12] MEDS ORDERED: MoRPHine SULFATE 2 MG/ML CARP IV PRN (18:12)
[2024-06-12] MEDS ORDERED: MoRPHine SULFATE 4 MG/ML 1 ML CARP\\VIAL IV PRN (18:12)
[2024-06-12] MEDS: ALBUT/IPRATROP 3MG/0.5MG NEB 3 ML VIAL NEB PRN (18:19)
[2024-06-12] MEDS: lisinopril 5 MG TAB PO ONE (19:07)
--- NOTE | 2024-06-12 19:16 | XCELERA ---
[id number] \\[id number]
[2024-06-12] MEDS: diphenhydrAMINE Capsule 25 MG CAP PO SCH (20:12)
[2024-06-12] MEDS: AZITHROMYCIN 250 MG TAB PO SCH (20:12)
[2024-06-13] MEDS: cefTRIAXone SODIUM 2,000 MG/50 ML BAG IV SCH
[2024-06-13] MEDS: lisinopril 10 MG TAB PO SCH (07:55)
[2024-06-13 08:20] LABS: Hematocrit (blood only) 41.1 % (42.0-52.0); Hemoglobin 13.3 g/dl (14.0-18.0); Mean Corpuscular Hemoglobin 29.3 pg (25.0-34.0); Mean Corpuscular Hgb Conc 32.4 g/dL (32.0-36.0); Mean Corpuscular Volume 90.5 fL (80.0-100.0); Mean Platelet Volume 10.7 fL (9.4-12.4); Platelet Count 132 K/uL (130-400); RDW Coefficient of Variation 15.5 % (11.5-14.5); RDW Standard Deviation 51.7 fL (36.4-46.3); Red Blood Count 4.54 M/uL (4.70-6.10); White Blood Count 7.13 K/ul (4.8-10.8)
[2024-06-13 08:41] LABS: BUN Creatinine Ratio 14.1 (10-20); Calcium 9.1 mg/dl (8.6-10.3); Creatinine Clr Calc Pharmacy 47.3 ml/min; Est GFR (African American) 43.8 ml/min; Est GFR (Non-African American) 37.8 ml/min; Potassium 4.6 mmol/L (3.5-5.1)
[2024-06-13 08:47] LABS: Troponin I High Sensitivity 11.9 pg/ml (0-20)
[2024-06-13] MEDS: METOPROLOL TARTRATE 1 MG/ML VIAL IV ONE (11:00)
[2024-06-13] MEDS: ATROPINE SULFATE 0.1 MG/ML 10ML SYR IV ONE (11:00)
[2024-06-13] MEDS: DOBUTamine HCL 12.5 MG/ML 20 ML VIAL IV ONE (11:00)
--- NOTE | 2024-06-13 17:00 | Hospitalist Progress Note ---
Date of Service June 13, 2024 Assessment & Plan (1) Respiratory distress, acute: Plan: Tachypneic, retractions, increased work of breathing on presentation . No hypoxia. BioFire neg. Procal neg. CRP elevated. No leukocytosis or fever. Had workup 06/11 that was negative for PE may show mild pneumonitis, normal resting echo, prelim dobutamine stress neg( could not walk on treadmill due to sob) for video swallow 06/14 as symptoms did exacerbate with eating Ceftriaxone and azithromycin for anti-inflammatory effect. Steroids for poison mayela recently discontinued, may have been masking fevers. Would not add back steroids at present. Azithromycin 500 mg x1, 250 x 4 Continue Ceftriaxone while inpatient, duonebs PRN, IS, oxygen if needed for supportive care given persistent symptoms is all else negtive after VFSS consider pulmonary eval, look for laryngeal spasm on VFSS (2) Essential tremor: Plan: Chronic with exacerbation from nebs. (3) Hypertension: Plan: resume lisinopril (4) Constipation: Plan: Chronic condition. Scheduled miralax, can increase if ineffective Plan Hypothyroidism: continue home levothyroxine Chronic pain: continue duloxetine and Lyrica CKDIII: stable, at baseline GERD: continue home omeprazole Insomnia: chronically takes benadryl 50 mg nightly, would recommend switching to hydroxyzine as there are less side effects Code status: full DVT ppx: Lovenox Admission and Anticipated Discharge Date Admission Date: June 13, 2024 Subjective pt has had neg cta for PE, normal resting echo, speech eval with VFSS 06/14 pending dobutamine stress test Physical Exam Physical Exam: Patient is anxious and fearful. Card exam is regular without murmurs no lymphadenopathy in his neck no JVD Lung exam is clear without wheezes or crackles, he is tachypneic, is this anxiety? Abdomen normal active bowel sounds soft no bruits Extremities without edema, good pulses in his extremities good sensation of the extremities Results & Data Results & Data Vital Signs (Past 12 Hours) Vital Signs Temp Pulse Pulse Resp BP Pulse Ox O2 Del Method 06/13/24 15:37 97.3 F L 85 20 147/93 H 95 Room Air 06/13/24 15:04 81 06/13/24 11:34 98.2 F 71 20 124/82 93 Room Air 06/13/24 08:05 84 06/13/24 08:05 Room Air 06/13/24 08:03 100.2 F H 89 20 142/89 H 92 Room Air Laboratory Results review cbc review chemistry review troponin PG Care Time/CCT Total # of Minutes Spent Total Time Spent with Patient: Total time spent is greater than 50% in coordination of care (as documented) at patient's floor/unit and/or counseling patient: Coding Level of Care Code 23723 SUB INP/OBS CARE 3/50MIN Diagnoses Respiratory distress, acute R06.03 Essential tremor G25.0 Hypertension I10 Constipation K59.00
--- NOTE | 2024-06-13 17:04 | XCELERA ---
[id number] \\[id number]
[2024-06-13] MEDS: LORazepam 0.5 MG TAB PO ONE (18:21)
--- NOTE | 2024-06-13 18:52 | CT Scan Report ---
CT OF THE HEAD WITHOUT CONTRAST CLINICAL HISTORY: Headache. COMPARISON STUDY: No previous studies for comparison. CT DOSE: 2136.87 mGy.cm TECHNIQUE: Helical axial images of the head were obtained without IV contrast. Automated exposure con trol was utilized for the study. A dose lowering technique was utilized adhering to the principles o f ALARA. FINDINGS: This exam is mildly compromised by motion artifact. No acute intracranial hemorrhage, midli ne shift or mass effect is present. The ventricular system is unremarkable. The basal cisterns are pa tent. No extra-axial collections are present. There are no findings to suggest acute dural sinus thro mbosis or acute territorial infarct. No significant calvarial abnormalities are present. Visualized p ortions of the sinuses and mastoid air cells are clear. IMPRESSION: No acute intracranial findings. Exam mildly compromised by motion artifact. ACT 112: Negative or not required by law. Electronically signed by: Huan Reyna M.D. 06/13/2024 6:51 PM
[2024-06-13] MEDS ORDERED: LORazepam 0.5 MG TAB PO ONE (21:00)
--- NOTE | 2024-06-14 07:33 | Hospitalist Progress Note ---
Date of Service June 14, 2024 Assessment & Plan (1) Respiratory distress, acute: (2) Essential tremor: (3) Hypertension: (4) Constipation: Plan: = Plan #Respiratory distress, acute: #RLL infiltrate - Tachypneic, retractions, increased work of breathing on presentation . No hypoxia. BioFire neg. Procal neg. CRP elevated. No leukocytosis or fever. Had workup 06/11 that was negative for PE may show mild pneumonitis, normal resting echo, prelim dobutamine stress neg( could not walk on treadmill due to sob) for video swallow 06/14 as symptoms did exacerbate with eating - cont CTX, azithro changed to doxy by pulm - recently on steroids for poison mayela. - duonebs PRN, IS, oxygen if needed for supportive care - oxygen trending down - pulm recs appreciated #Essential tremor: - Chronic with exacerbation from nebs. #Hypertension: - resume lisinopril #Constipation: - Chronic condition. Scheduled miralax, can increase if ineffective #Hypothyroidism: continue home levothyroxine #Chronic pain: continue duloxetine and Lyrica #CKDIII: stable, at baseline #GERD: continue home omeprazole #Insomnia: chronically takes benadryl 50 mg nightly, would recommend switching to hydroxyzine as there are less side effects #Code status: full #DVT ppx: Lovenox & daughter at bedside Admission and Anticipated Discharge Date Admission Date: June 13, 2024 Subjective No acute events overnight Currently no new complaints Still feeling weak. Review of Systems Review of Systems: Comprehensive ROS completed Physical Exam Physical Exam: Gen: no acute distress though pt appears fatigued HEENT: NC/AT, MMM CVS: s1s2 nl, RRR Lungs: coarse breath sounds Abd: soft, nontender, nl BS Ext: no edema : no bunch Psych: slightly withdrawn but pleasant and cooperative Results & Data Results & Data Vital Signs (Past 12 Hours) Vital Signs Temp Pulse Pulse Resp BP BP Pulse Ox 06/14/24 05:12 96 H 16 91 06/14/24 02:08 37.1 C 84 16 137/91 91 06/13/24 22:51 36.9 C 104 H 18 146/90 H 92 06/13/24 21:40 94 H 06/13/24 20:55 O2 Del Method 06/14/24 05:12 Room Air 06/14/24 02:08 Room Air 06/13/24 22:51 Room Air 06/13/24 21:40 06/13/24 20:55 Room Air PG Care Time/CCT Total # of Minutes Spent Total Time Spent with Patient: Total time spent is greater than 50% in coordination of care (as documented) at patient's floor/unit and/or counseling patient: Coding Level of Care Code 16500 SUB INP/OBS CARE 2/35MIN Diagnoses Respiratory distress, acute R06.03 Essential tremor G25.0 Hypertension I10 Constipation K59.00
--- NOTE | 2024-06-14 11:10 | Pulmonary Consultation ---
Date of Consultation June 14, 2024 Assessment & Plan (1) Dyspnea on exertion: On review of the patient's imaging studies and cardiovascular studies, he does appear to have an infiltrative change noted in the RIGHT upper lobe as well as some groundglass opacities at the bases. That being said, these infiltrative processes are not impressive enough that they should be resulting in hypoxia and/or this significant of tachypnea. In conversation with the patient, he has had progressively worsening weakness and general fatigue for the last several days. Given his unremarkable CT without findings concerning for lung parenchymal injury or with lack of hypoxia associated, will perform negative inspiratory force as well as forced vital capacity on the patient to assess respiratory muscle capacity as the patient does appear generally weak and frail. In addition, we will order a CPK as well as ESR and TSH to assess for any other contributing causes that may result in muscle weakness. On exam, he does seem to be relatively weak in his upper and lower extremities against examiner's force. Patient was with recent tick bites, however his serology has been unremarkable to this point. Of note, the patient was recently treated for a contact dermatitis at the beginning of the month with a prednisone taper. Certainly, steroid-induced myopathy superimposed on a patient with decreasing exercise tolerance with recent surgical intervention and sedentary state may also be considered,although certainly less likely unless he were with underlying undiagnosed neuromuscular condition. Will review the patient's labs and pulmonary function testing low threshold for neurology consult. Would recommend PT OT evaluation to assess patient's functional status as well. If the patient is noted to have normal respiratory strength and capacity, certainly the patient could be seen in the outpatient clinic in follow-up to evaluate formal pulmonary function testing. (2) Pneumonia: RIGHT upper lobe groundglass infiltrative process noted. Agree with community- acquired pneumonia coverage. That being said, and with the patient's weakness, we will discontinue azithromycin out of an abundance of caution and place him on doxycycline for a 5-day course. Patient could have outpatient follow-up CT in the next 3 to 4 months to assess for resolution. (3) Pulmonary nodules: 4 mm right lower lobe nodule and 2 mm pleural-based nodule in the RIGHT middle lobe demonstrated on CT performed on 09/08/2023 which showed stability dating back to 2019. No further assessment given. Patient low risk for malignancy given his lifelong non-smoking status and size and stability of nodules. (4) Bronchiolitis: Plan Thank you for allowing us to participate in the care of this patient. Pulmonary medicine will continue to follow. Supervising Physician Co-Signing Physician Notes I separately evaluated the patient and reviewed the note by the MYRTLE as above. Agree with the note aside for any additions/exceptions noted: On exam the patient does have diffuse mild expiratory wheeze. Suspect an element of respiratory bronchiolitis. Will start the patient on nebulized budesonide and formoterol and follow clinical response. Recommend outpatient PFTs and exhaled nitric oxide levels. Agree with evaluating for myositis like condition given fatigue and muscle weakness. I also suspect the patient is profoundly deconditioned and this is contributing to his overall shortness of breath virtually. High risk for BOB given underlying health conditions including elevated STOP-BANG score. Recommend outpatient polysomnography. Patient and in agreement with this plan. History of Present Illness Reason for Consultation: unexplained tachypnea Requesting Physician: Dr. Medina Attending Physician: Bambi Clemente MD History of Present Illness Patient is a 69-year-old male with a significant past medical history of reflux esophagitis, chronic low back pain, hypertension, CKD 3, hypothyroidism, essential tremor, pulmonary nodules, prior exposure to TB, and recent total hip arthroplasty in March who presented to the emergency department with complaints of shortness of breath and increasing cough. The patient states that he has had decrease in his activity since undergoing a total shoulder surgery in August of last year and then a total hip replacement in March of this year. He admits to being relatively inactive since March secondary to his recovery. He reports that the significant shortness of breath has not been problematic until the last 10 or so days. He states that while camping at the [facility] last week he had noticed increasing shortness of breath with walking which progressively worsened throughout the stay. He had some associated central chest squeezing-like sensation with this exertion. No reported chest discomfort, however. Over the past few days, he developed a cough which is relatively nonproductive. He was seen by his primary care provider's office on 06/10 and directed to the emergency department where he underwent extensive evaluation including CTA of the chest. While there was no pulmonary emboli appreciated, there was incidental findings of some groundglass opacities with particular noticed to the RIGHT upper lobe. Patient was offered admission but elected to be discharged home. Unfortunately, he had ongoing dyspnea and came back to the emergency department via ambulance on 06/11 and was subsequently admitted for further evaluation and management. Patient has received Rocephin and azithromycin for the infiltrative finding. Additionally, he underwent routine echocardiogram as well as stress echocardiogram which demonstrated no concerning wall motion abnormalities or concerns for ischemic changes. Unfortunately, the patient reports persistent dyspnea with any exertion. He has had no hypoxia. On review of the patient's chart and conversation with the patient, he does note that he has been profoundly weak including the muscles of his legs and has had general fatigue for the last few weeks. He states that the shortness of breath and the weakness have coincided. He reports a history of essential tremor, but no other neurological conditions that he is aware of. He carries no prior history of pulmonary diseases including smoking history, asthma diagnosis, COPD, recurrent pneumonia, or recurrent bronchitis. He did have a TB exposure 40 to 50 years ago without recurrence or issue. He does note that he has received multiple tick bites and typically has a significant reaction with erythematous areas that are noted. Additionally, the patient had been treated with a prednisone taper at the beginning of the month for findings of contact dermatitis. His had been exposed and with a similar rash during this presentation. Patient is had no recent vaccinations. No recent upper respiratory infections or viral processes otherwise. Allergies Allergy/AdvReac Type Severity Reaction Status Date / Time No Known Allergies Allergy Mild Verified 06/10/24 11:46 Home Medications Medication Instructions Recorded Confirmed Type multivitamin 1 tab PO QPM 04/20/19 06/12/24 History omega 6-ajt-cpf-fish oil 1,000 mg 1,200 cap PO QPM 04/20/19 06/12/24 History (120 mg-180 mg) capsule (Fish Oil) psyllium husk 0.4 gram capsule 0.4 g PO QPM 06/29/22 06/12/24 History (Daily Fiber) acetaminophen 500 mg tablet 1,000 mg PO BID PRN Pain 07/20/23 06/12/24 History (Tylenol Extra Strength) aspirin 81 mg tablet,delayed 81 mg PO DAILY 07/20/23 06/12/24 History release diphenhydramine HCl 25 mg capsule 50 mg PO HS sleep 07/20/23 06/12/24 History (Allergy (diphenhydramine)) calcium carbonate (Tums) 200 mg PO DAILY PRN Acid Reflux 09/05/23 06/12/24 History omeprazole 20 mg capsule,delayed 20 mg PO DAILY #90 caps 11/27/23 06/12/24 Rx release levothyroxine 100 mcg tablet 100 mcg PO QAM #90 tabs 12/14/23 06/12/24 Rx duloxetine 30 mg capsule,delayed 30 mg PO BID #180 caps 12/26/23 06/12/24 Rx release (Cymbalta) lisinopril 40 mg tablet 40 mg PO QAM #90 tabs 01/02/24 06/12/24 Rx sildenafil 100 mg tablet 100 mg PO DAILY PRN sexual 03/12/24 06/12/24 Rx activity #10 tabs pregabalin 300 mg capsule (Lyrica) 300 mg PO BID #180 caps 06/03/24 06/12/24 Rx magnesium 250 mg tablet 0 mg PO DAILY 06/12/24 06/12/24 History Patient History Medical History CKD (chronic kidney disease) Baseline creat 2.1 per nephro- Dr Teresa Hypothyroidism HLD (hyperlipidemia) HTN (hypertension) controlled, stable per pt Tuberculosis hx 40 years ago - treated; denies active cough, weight loss, night sweats or hemoptysis Surgical History History of tonsillectomy and adenoidectomy History of surgery left biceps repair History of back surgery History of colonoscopy History of shoulder surgery BL History of ankle surgery Rt Family History Mother Diabetes Heart disease Sister Ovarian cancer Father Heart disease Myocardial infarction Other No family history of adverse response to anesthesia Denies family history of Prostate cancer Breast cancer Colorectal cancer Social History Smoking Status: Never smoker Second Hand Exposure: No; Do You Dip or Chew Tobacco: No; Hx Alcohol Use: No Hx Substance Use: No Preferred Language: Czech Communication Ability: Effective Visual Impairment: Limited Hearing Ability: Normal 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 Beliefs That Will Affect Care: None marital status: Current Living Situation: Family current occupational status: retired How many Children do You have: 4 Feels Safe at Home: Yes Childhood Exposure to Second-Hand Smoke: No Diet: regular caffeine: Yes (coffee and tea.) during the past year weight has: increased > 10 lbs Dental Care, Regularly: No Physical Activity Frequency: Daily Seatbelt Use: always Sunscreen Use: No Do you think of yourself as: straight/heterosexual Gender Identity: Male Assistive Devices: Cane and Glasses Review of Systems Review of Systems: A complete 10 point review of systems was reviewed with the patient with pertinent positives and negatives as per history of present illness. All else were negative. Physical Exam Physical Exam: VITAL SIGNS Vital signs and nursing notes were reviewed. GENERAL 69-year-old male appearing his stated age who is in no acute distress. Communicates well with provider and answers questions appropriately. SKIN Without rashes or lesions. NOSE Midline and without cyanosis. MOUTH/OROPHARYNX Without perioral cyanosis. NECK Neck with FROM. LUNGS Chest wall evaluation demonstrates normal chest wall A:P diameter. Auscultation reveals diminished breath sounds at the bases. No wheezes, rales, or rhonchi appreciated. CARDIAC RRR with S1/S2. No murmur, rubs, or gallops appreciated. ABDOMEN Abdominal inspection demonstrates an obese abdomen. BS normoactive all four quadrants. No tenderness, palpable masses, or ascites noted. EXTREMITIES Nail clubbing not present. No peripheral cyanosis. No pretibial edema present. +3/5 radial palpated throughout. Moderate weakness in the upper and lower extremities appreciated against examiner's force. PSYCH A&Ox3 and cooperates fully with examiner. Pt is very pleasant and interacts well with examiner. NEURO - No focal neurological deficits appreciated Results & Data Results & Data Vital Signs (Past 12 Hours) Vital Signs Temp Pulse Resp BP BP Pulse Ox O2 Del Method 06/14/24 08:09 36.7 C 101 H 18 126/83 92 Room Air 06/14/24 05:12 96 H 16 91 Room Air 06/14/24 02:08 37.1 C 84 16 137/91 91 Room Air 06/13/24 22:51 36.9 C 104 H 18 146/90 H 92 Room Air PG Care Time/CCT Total # of Minutes Spent Total Time Spent with Patient: Total time spent is greater than 50% in coordination of care (as documented) at patient's floor/unit and/or counseling patient: Coding Level of Care Code 01168 INT INP/OBS CARE 3/75MIN Diagnoses Dyspnea on exertion R06.09 Pneumonia J18.9 Pulmonary nodules R91.8 Bronchiolitis J21.9
[2024-06-14 12:02] LABS: Thyroid Stimulating Hormone 3.943 uIu/ml (0.300-4.500)
--- NOTE | 2024-06-14 12:21 | Fluoroscopy Report ---
MODIFIED BARIUM SWALLOW CLINICAL HISTORY: r/o aspiration COMPARISON STUDY: None. FLUOROSCOPY TIME: 0.50 seconds. Ka,r: 4.03 mGy. TECHNIQUE: A modified barium swallow was performed in conjunction with Speech Pathology. The patient ingested varying consistencies of barium containing material. Video fluoroscopy was performed. FINDINGS: No aspiration was identified with thin liquids, nectar thick liquids, pudding consistency, cookie and pudding consistency. Epiglottic inversion was normal. Laryngeal elevation was normal. IMPRESSION: 1. Intact swallowing mechanism. No tracheal aspiration. 2. Full recommendations by Speech pathology to follow. ACT 112: Negative or not required by law. Electronically signed by: Huan Reyna M.D. 06/14/2024 12:20 PM
[2024-06-14] MEDS: DOXYCYCLINE HYCLATE 100 MG in DEXTROSE 5% MINI-B 100 ML IV SCH (13:03)
[2024-06-14] MEDS: BUDESONIDE 0.5 MG/2 ML VIAL (PULMICORT) NEB SCH (15:28)
[2024-06-14] MEDS: FORMOTEROL 20 MCG/2 ML VIAL NEB SCH (15:28)
--- NOTE | 2024-06-14 21:37 | Electrocardiogram Report ---
Test Reason : Blood Pressure : */* mmHG Vent. Rate : 94 BPM Atrial Rate : 94 BPM P-R Int : 152 ms QRS Dur : 84 ms QT Int : 316 ms P-R-T Axes : 6 -4 -4 degrees QTcB Int : 395 ms Normal sinus rhythm Normal ECG When compared with ECG of 10-Jun-2024 12:48, T wave inversion now evident in Inferior leads Confirmed by Axel Stovall ([id number]) on 06/14/2024 9:36:46 PM Referred By: REFERRED SELF Confirmed By: Axel Stovall
--- NOTE | 2024-06-15 00:29 | Electrocardiogram Report ---
Test Reason : Blood Pressure : */* mmHG Vent. Rate : 96 BPM Atrial Rate : 96 BPM P-R Int : 146 ms QRS Dur : 84 ms QT Int : 324 ms P-R-T Axes : 48 55 49 degrees QTcB Int : 409 ms Poor data quality, interpretation may be adversely affected Normal sinus rhythm Normal ECG When compared with ECG of 11-Jun-2024 21:20, Questionable change in QRS axis T wave inversion no longer evident in Inferior leads Confirmed by Axel Stovall ([id number]) on 06/15/2024 12:29:15 AM Referred By: REFERRED SELF Confirmed By: Axel Stovall
[2024-06-15 07:37] LABS: BUN Creatinine Ratio 15.4 (10-20); Est GFR (Non-African American) 33.6 ml/min; Magnesium 1.7 mg/dl (1.7-2.4); Phosphorus 4.1 mg/dl (2.5-4.9); Potassium 4.5 mmol/L (3.5-5.1)
--- NOTE | 2024-06-15 08:11 | Hospitalist Progress Note ---
Date of Service June 15, 2024 Assessment & Plan (1) Respiratory distress, acute: (2) Essential tremor: (3) Hypertension: (4) Constipation: Plan #Respiratory distress, acute: #RLL infiltrate - Tachypneic, retractions, increased work of breathing on presentation . No hypoxia. BioFire neg. Procal neg. CRP elevated. No leukocytosis or fever. Had workup 06/11 that was negative for PE may show mild pneumonitis, normal resting echo, prelim dobutamine stress neg( could not walk on treadmill due to sob) for video swallow 06/14 as symptoms did exacerbate with eating - cont CTX, azithro changed to doxy by pulm - recently on steroids for poison mayela. - duonebs PRN, IS, oxygen if needed for supportive care - oxygen trending down - pulm recs appreciated - gentle hydration #Essential tremor: - Chronic with exacerbation from nebs. #Hypertension: - resume lisinopril #Constipation: - Chronic condition. Scheduled miralax, can increase if ineffective #BOB - snoring and daytime fatigue reported - CPAP trial overnight and tolerated well - need outpatient polysomnography #Hypothyroidism: continue home levothyroxine #Chronic pain: continue duloxetine and Lyrica #CKDIII: stable, at baseline #GERD: continue home omeprazole #Insomnia: chronically takes benadryl 50 mg nightly, would recommend switching to hydroxyzine as there are less side effects #Code status: full #DVT ppx: Lovenox 06/14 & daughter at bedside Admission and Anticipated Discharge Date Admission Date: June 13, 2024 Subjective No acute events overnight Currently no new complaints Still feeling weak. Review of Systems Review of Systems: Comprehensive ROS completed Physical Exam Physical Exam: Gen: no acute distress though pt appears fatigued HEENT: NC/AT, MMM CVS: s1s2 nl, RRR Lungs: coarse breath sounds Abd: soft, nontender, nl BS Ext: no edema : no bunch Psych: slightly withdrawn but pleasant and cooperative Results & Data Results & Data Vital Signs (Past 12 Hours) Vital Signs Temp Pulse Pulse Resp BP BP Pulse Ox 06/15/24 07:44 36.6 C 93 H 16 115/75 95 06/15/24 07:23 94 H 18 94 06/15/24 07:14 85 06/15/24 04:26 85 24 94 06/15/24 04:02 36.8 C 89 16 127/80 94 06/14/24 23:55 37.4 C 96 H 18 151/83 H 96 06/14/24 21:35 96 H 06/14/24 21:00 95 H 23 97 06/14/24 20:17 37.0 C 93 H 18 128/80 97 O2 Del Method O2 Flow Rate 06/15/24 07:44 Nebulizer 06/15/24 07:23 Nasal Cannula 2 06/15/24 07:14 06/15/24 04:26 2 06/15/24 04:02 Room Air 06/14/24 23:55 Room Air 06/14/24 21:35 06/14/24 21:00 2 06/14/24 20:17 Nasal Cannula 2 PG Care Time/CCT Total # of Minutes Spent Total Time Spent with Patient: Total time spent is greater than 50% in coordination of care (as documented) at patient's floor/unit and/or counseling patient: Coding Level of Care Code 88631 SUB INP/OBS CARE 2/35MIN Diagnoses Respiratory distress, acute R06.03 Essential tremor G25.0 Hypertension I10 Constipation K59.00
--- NOTE | 2024-06-15 08:17 | Pulmonology Progress Note ---
Date of Service June 15, 2024 Assessment & Plan (1) Dyspnea on exertion: (2) Pneumonia: (3) Pulmonary nodules: (4) Bronchiolitis: Plan CTA chest 06/10/2024 personally reviewed: Motion degraded study Very minimal patchy opacity in the right upper lobe anteriorly Dependent atelectasis bilateral lower lobes No significant mediastinal lymphadenopathy 2D echo 06/12/2024: EF 55-60%, mild concentric LVH, mild dilated RV with normal systolic function -- Right upper lobe pneumonia Complete the course of antibiotics --Exertional shortness of breath CTA negative for pulmonary emboli Respiratory bio fire negative for everything on 06/11/2024 BNP 15, procalcitonin 0.08 TSH 3.43 CRP 14.6 with ESR 69 CPK 180 which is within normal limit -- Multiple pulmonary nodules Has been stable dating back to 2019 Lifetime non-smoker This nodule did not need to be followed up Patient was with recent tick bites, serology was negative for babesiosis as well as anaplasmosis including Lyme's. The patient was recently treated for a contact dermatitis at the beginning of the month with a prednisone taper. Certainly, steroid-induced myopathy superimposed on a patient with decreasing exercise tolerance with recent surgical intervention and sedentary state may also be considered,although certainly less likely unless he were with underlying undiagnosed neuromuscular condition. Plan: Patient does have elevated ESR and CRP, although it is nonspecific given the significant lethargy, I think it is reasonable to order autoimmune workup which will be done tomorrow I do think he is going to benefit from sleep study done as an outpatient. Continue with incentive spirometry Complete the course of antibiotics Was discussed with RN at bedside Please note the above document was generated using voice recognition software. It may contain grammatical, syntax or spelling errors.Any formal questions or concerns about the content, text or information contained within the body of this dictation should be directly addressed to the provider for clarification. Admission and Anticipated Discharge Date Admission Date: June 13, 2024 Subjective Patient seen and examined at bedside. No acute distress, notable symptoms overnight He was saturating 95% on 2 L nasal cannula with heart rate in the 90s He used his CPAP overnight and tolerated well He stated he is feeling better compared to before Has been using incentive spirometry Denies any chest pain, shortness of breath is improved. Fair appetite Patient's was also in the room at the time of examination Review of Systems 2 Review of Systems: All systems reviewed & are unremarkable except as noted in Subjective Physical Exam 2 Physical Exam: Constitutional: No acute distress HEENT: EOMI, PERRLA Respiratory system: Decreased air entry bilaterally, no wheeze, no rhonchi, positive crackles appreciated bilaterally CVS: S1-S2 positive, no murmurs or gallops Abdomen: Soft, nontender, nondistended, positive bowel sounds x4 obese Extremities: +2 pulses bilaterally radialis/ dorsalis pedis, no cyanosis, no edema Neuro: Awake alert oriented x3 Psych: Normal mood and affect G/U: No Chavira Skin: no rashes, warm and dry Lymphatic: no cervical or axillary lymphadenopathy Results & Data Results & Data Vital Signs (Past 12 Hours) Vital Signs Temp Pulse Pulse Resp BP BP Pulse Ox 06/15/24 07:44 36.6 C 93 H 16 115/75 95 06/15/24 07:23 94 H 18 94 06/15/24 07:14 85 06/15/24 04:26 85 24 94 06/15/24 04:02 36.8 C 89 16 127/80 94 06/14/24 23:55 37.4 C 96 H 18 151/83 H 96 06/14/24 21:35 96 H 06/14/24 21:00 95 H 23 97 06/14/24 20:17 37.0 C 93 H 18 128/80 97 O2 Del Method O2 Flow Rate 06/15/24 07:44 Nebulizer 06/15/24 07:23 Nasal Cannula 2 06/15/24 07:14 06/15/24 04:26 2 06/15/24 04:02 Room Air 06/14/24 23:55 Room Air 06/14/24 21:35 06/14/24 21:00 2 06/14/24 20:17 Nasal Cannula 2 Laboratory Results 06/13/24 07:49 06/15/24 06:32 PG Care Time/CCT Total # of Minutes Spent Total Time Spent with Patient: Total time spent is greater than 50% in coordination of care (as documented) at patient's floor/unit and/or counseling patient: Coding Level of Care Code 50654 SUB INP/OBS CARE 3/50MIN Diagnoses Dyspnea on exertion R06.09 Pneumonia J18.9 Pulmonary nodules R91.8 Bronchiolitis J21.9
[2024-06-15 08:37] LABS: Babesia microti DNA Not Detected (Not Detected)
[2024-06-15] MEDS: LACTATED RINGER'S 1,000 ML IV SCH (13:03)
--- NOTE | 2024-06-16 07:22 | Hospitalist Progress Note ---
Date of Service June 16, 2024 Assessment & Plan (1) Respiratory distress, acute: (2) Essential tremor: (3) Hypertension: (4) Constipation: Plan #Respiratory distress, acute: resolved #RLL infiltrate - Tachypneic, retractions, increased work of breathing on presentation . No h ypoxia. BioFire neg. Procal neg. CRP elevated. No leukocytosis or fever. Had workup 06/11 that was negative for PE may show mild pneumonitis, normal resting echo, prelim dobutamine stress neg (could not walk on treadmill due to sob) for video swallow 06/14 as symptoms did exacerbate with eating - cont CTX, azithro changed to doxy by pulm - recently on steroids for poison mayela. - duonebs PRN, IS, oxygen if needed for supportive care - resting pulse ox stable, however, with ambulation oxygen dropped to 87% - pulm recs appreciated, autoimmune labs ordered for tomorrow - gentle hydration #Essential tremor: - Chronic with exacerbation from nebs. #Hypertension: - resume lisinopril #Constipation: - Chronic condition. Scheduled miralax, can increase if ineffective #BOB - snoring and daytime fatigue reported - CPAP trial overnight and tolerated well - need outpatient polysomnography #Hypothyroidism: continue home levothyroxine #Chronic pain: continue duloxetine and Lyrica #CKDIII: stable, at baseline #GERD: continue home omeprazole #Insomnia: chronically takes benadryl 50 mg nightly, would recommend switching to hydroxyzine as there are less side effects #Code status: full #DVT ppx: Lovenox #Dispo: OT recs home OT eval, home with 24hr supervision 06/14 & daughter at bedside 06/16: pt's at bedside Admission and Anticipated Discharge Date Admission Date: June 13, 2024 Subjective No acute events overnight Pt states he is continuing to improve No new complaints Review of Systems Review of Systems: Comprehensive ROS completed Physical Exam Physical Exam: Gen: no acute distress though pt appears fatigued HEENT: NC/AT, MMM CVS: s1s2 nl, RRR Lungs: coarse breath sounds Abd: soft, nontender, nl BS Ext: no edema : no bunch Psych: slightly withdrawn but pleasant and cooperative Results & Data Results & Data Vital Signs (Past 12 Hours) Vital Signs Temp Pulse Pulse Resp BP Pulse Ox O2 Del Method 06/16/24 06:05 91 Room Air 06/16/24 03:32 78 16 92 06/16/24 02:36 36.5 C 77 18 113/72 92 CPAP 06/16/24 00:30 93 CPAP 06/15/24 23:34 84 L Room Air 06/15/24 23:34 36.7 C 85 18 113/68 91 Nasal Cannula 06/15/24 23:07 88 22 94 06/15/24 21:49 91 H 06/15/24 20:00 Room Air 06/15/24 19:59 37 C 94 H 18 115/72 97 Nebulizer 06/15/24 19:30 92 H 18 91 Room Air O2 Flow Rate 06/16/24 06:05 06/16/24 03:32 2 06/16/24 02:36 06/16/24 00:30 06/15/24 23:34 06/15/24 23:34 3 06/15/24 23:07 2 06/15/24 21:49 06/15/24 20:00 06/15/24 19:59 06/15/24 19:30 PG Care Time/CCT Total # of Minutes Spent Total Time Spent with Patient: Total time spent is greater than 50% in coordination of care (as documented) at patient's floor/unit and/or counseling patient: Coding Level of Care Code 62921 SUB INP/OBS CARE 2/35MIN Diagnoses Respiratory distress, acute R06.03 Essential tremor G25.0 Hypertension I10 Constipation K59.00
--- NOTE | 2024-06-16 08:22 | Pulmonology Progress Note ---
Date of Service June 16, 2024 Assessment & Plan (1) Dyspnea on exertion: (2) Pneumonia: (3) Pulmonary nodules: (4) Bronchiolitis: Plan CTA chest 06/10/2024 personally reviewed: Motion degraded study Very minimal patchy opacity in the right upper lobe anteriorly Dependent atelectasis bilateral lower lobes No significant mediastinal lymphadenopathy 2D echo 06/12/2024: EF 55-60%, mild concentric LVH, mild dilated RV with normal systolic function -- Right upper lobe pneumonia Complete the course of antibiotics --Exertional shortness of breath CTA negative for pulmonary emboli Respiratory bio fire negative for everything on 06/11/2024 BNP 15, procalcitonin 0.08 TSH 3.43 CRP 14.6 with ESR 69 CPK 180 which is within normal limit -- Multiple pulmonary nodules Has been stable dating back to 2019 Lifetime non-smoker This nodule did not need to be followed up Patient was with recent tick bites, serology was negative for babesiosis as well as anaplasmosis including Lyme's. The patient was recently treated for a contact dermatitis at the beginning of the month with a prednisone taper. Certainly, steroid-induced myopathy superimposed on a patient with decreasing exercise tolerance with recent surgical intervention and sedentary state may also be considered,although certainly less likely unless he were with underlying undiagnosed neuromuscular condition. Plan: Follow-up autoimmune workup Recommend sleep study to be done as an outpatient Continue with incentive spirometry Complete the course of antibiotics for total of 5 days Recommend to check for oxygen on exertion prior to discharge No further recommendation from pulmonary perspective, will sign off Please call directly with any questions Please note the above document was generated using voice recognition software. It may contain grammatical, syntax or spelling errors.Any formal questions or concerns about the content, text or information contained within the body of this dictation should be directly addressed to the provider for clarification. Admission and Anticipated Discharge Date Admission Date: June 13, 2024 Subjective Patient seen and examined at bedside. No acute distress, no adverse events overnight He was saturating 92% on room air with heart rate in the 91 Did use his CPAP overnight. He is able to tolerate it Denies any nausea vomiting Overall he is feeling more energetic as well. Review of Systems 2 Review of Systems: All systems reviewed & are unremarkable except as noted in Subjective Physical Exam 2 Physical Exam: Constitutional: No acute distress HEENT: EOMI, PERRLA Respiratory system: Decreased air entry bilaterally, no wheeze, no rhonchi, positive crackles appreciated bilaterally CVS: S1-S2 positive, no murmurs or gallops Abdomen: Soft, nontender, nondistended, positive bowel sounds x4 obese, reducible umbilical hernia Extremities: +2 pulses bilaterally radialis/ dorsalis pedis, no cyanosis, no edema Neuro: Awake alert oriented x3 Psych: Normal mood and affect G/U: No Chavira Skin: no rashes, warm and dry Lymphatic: no cervical or axillary lymphadenopathy Results & Data Results & Data Vital Signs (Past 12 Hours) Vital Signs Temp Pulse Pulse Resp BP BP Pulse Ox 06/16/24 07:57 36.8 C 82 18 164/78 H 91 06/16/24 07:23 90 18 89 L 06/16/24 06:05 91 06/16/24 03:32 78 16 92 06/16/24 02:36 36.5 C 77 18 113/72 92 06/16/24 00:30 93 06/15/24 23:34 84 L 06/15/24 23:34 36.7 C 85 18 113/68 91 06/15/24 23:07 88 22 94 06/15/24 21:49 91 H O2 Del Method O2 Flow Rate 06/16/24 07:57 Room Air 06/16/24 07:23 Room Air 06/16/24 06:05 Room Air 06/16/24 03:32 2 06/16/24 02:36 CPAP 06/16/24 00:30 CPAP 06/15/24 23:34 Room Air 06/15/24 23:34 Nasal Cannula 3 06/15/24 23:07 2 06/15/24 21:49 Laboratory Results 06/13/24 07:49 06/15/24 06:32 PG Care Time/CCT Total # of Minutes Spent Total Time Spent with Patient: Total time spent is greater than 50% in coordination of care (as documented) at patient's floor/unit and/or counseling patient: Coding Level of Care Code 84029 SUB INP/OBS CARE 2/35MIN Diagnoses Dyspnea on exertion R06.09 Pneumonia J18.9 Pulmonary nodules R91.8 Bronchiolitis J21.9
[2024-06-17 06:44] LABS: Basophils # (auto) 0.05 K/uL (0.00-0.20); Eosinophils # (auto) 0.85 K/uL (0.00-0.50); Eosinophils % (auto) 17.1 %; Hematocrit (blood only) 34.8 % (42.0-52.0); Hemoglobin 11.7 g/dl (14.0-18.0); Immature Granulocytes # (auto) 0.04 K/uL (0.01-0.20); Immature Granulocytes % (auto) 0.8 %; Lymphocytes # (auto) 1.15 K/uL (1.20-3.40); Lymphocytes % (auto) 23.2 %; Mean Corpuscular Hemoglobin 29.8 pg (25.0-34.0); Mean Corpuscular Hgb Conc 33.6 g/dL (32.0-36.0); Mean Corpuscular Volume 88.8 fL (80.0-100.0); Mean Platelet Volume 10.7 fL (9.4-12.4); Monocytes # (auto) 0.41 K/uL (0.11-0.59); Monocytes % (auto) 8.3 %; Neutrophils # (auto) 2.46 K/uL (1.40-6.50); Neutrophils % (auto) 49.6 %; Platelet Count 173 K/uL (130-400); RDW Coefficient of Variation 14.8 % (11.5-14.5); RDW Standard Deviation 47.9 fL (36.4-46.3); Red Blood Count 3.92 M/uL (4.70-6.10); White Blood Count 4.96 K/ul (4.8-10.8)
[2024-06-17 06:49] LABS: BUN Creatinine Ratio 15.8 (10-20); Calcium 8.8 mg/dl (8.6-10.3); Creatinine Clr Calc Pharmacy 46.1 ml/min; Est GFR (African American) 41.8 ml/min; Est GFR (Non-African American) 36.1 ml/min; Magnesium 1.7 mg/dl (1.7-2.4); Phosphorus 3.9 mg/dl (2.5-4.9); Potassium 4.4 mmol/L (3.5-5.1)
[2024-06-17 07:15] VITALS: BP 143/85; TEMP 99
[2024-06-17 11:17] VITALS: PULSE 86; RESP 18; O2SAT 87
--- NOTE | 2024-06-17 12:09 | Discharge Summary ---
Discharge Summary Date of Service June 17, 2024 Principal Dx & Hospital Course #1 = Principal Diagnosis (1) Respiratory distress, acute: Patient originally presented to the ED on 06/12/24 with complaints of shortness of breath. He had also presented to the ED on 06/10 with shortness of breath as well with an unremarkable workup so he was discharged home that day. CTA from 06/10 was negative. Given workup, etiology still uncertain. Possible respiratory bronchiolitis. He had an echo done on 06/12 that revealed an EF of 55-60%, mild concentric LVH, mild dialted RV w/ normal systolic function. He was diagnosed with right upper lobe pneumonia for which he was placed on doxycycline for. Pulmonology ordered an autoimmune workup that is pending. His CRP was 14.6 and ESR 69. Two step performed with respiratory therapy that revealed patient requires 3L O2 during ambulation. Home oxygen therapy set up prior to discharge. Patient also reports snoring and daytime fatigue. CPAP was trialed overnight and the patient tolerated it well. He is to follow up outpatient for a polysomnography. (2) Essential tremor: Chronic with exacerbation from nebs. (3) Hypertension: Patient on 10mg Lisinopril while hospitalized which he was tolerating well and BP remained stable. Patient discharged on this dosage and encouraged to monitor BP at home. Close follow up with PCP recommended. (4) Constipation: Chronic condition, scheduled miralax. Plan Chronic Conditions: #Hypothyroidism: continue home levothyroxine #Chronic pain: continue duloxetine and Lyrica #CKDIII: stable, at baseline #GERD: continue home omeprazole #Insomnia: chronically takes benadryl 50 mg nightly, would recommend switching to hydroxyzine as there are less side effects Discussed discharge instructions with patient and at bedside 06/17. Admission HPI Per Admitting Provider Patient re-presents to the ED for continued shortness of breath. Patient was seen in outpatient office 06/10 - with mildly increased work of breathing patient was directed to the ED. Workup with BioFire, CTA, and CXR unremarkable. Patient was discharged home. Today he developed fevers and returned to the ED. Symptoms have been ongoing for about a week. Of note he was placed on a steroid taper for moderate to severe poison mayela. Last dose yesterday. No CP. Does feel short of breath especially with ambulation. Has been feeling lightheaded from coughing/shortness of breath. No nausea, vomiting, or diarrhea. No CP or headaches. Is constipated. Last BM hard this AM. Discharge Exam Constitutional WD/WN, vitals as above Eyes PERRL, conjunctivae normal, anicteric sclerae Respiratory normal respiratory effort, lungs clear to auscultation Cardiovascular RRR, no murmur, no edema Skin no rashes, warm and dry Psychiatric A+Ox3, euthymic affect Discharge Plan Discharge Items Patient Disposition: Home - Home Health Services Reason For Visit: DYSPNEA Discharge Diagnosis: acute respiratory distress, pneumonia Activity: Per Instructions section Activity Comment: gradually Non-emergency contact: Primary Care Provider Call non-emergency contact if: you have any medication questions and your symptoms worsen Follow-up/Referrals: Diane Jauregui MD [Primary Care Provider] - Diet: Heart Healthy Addtl Attending Provider Instructions: Mr. Durant, You were recently hospitalized for experiencing shortness of breath. You were found to have pneumonia. You also are undergoing an autoimmune work up that is still pending. Please see recommendations below regarding your discharge. 1. Please take Doxycycline twice daily for the next two and a half days. Your first dose at home will be this evening 9/ Please take with food to avoid GI upset. 2. Please use your portable oxygen at 3L while you are walking. You do not have to use it at rest. 3. Please follow up with pulmonology outpatient to continue your workup. 4. Please follow up with your PCP for a sleep study. 5. While hospitalized, your blood pressure has remained stable with a decreased dose of your Lisinopril. Please use Lisinopril 10mg once daily and monitor your blood pressure at home. This can be further discussed with your PCP at a follow up visit. Please follow up with your PCP within 1-2 weeks of discharge. If you develop any worsening shortness of breath, chest pain, fevers, or chills please report back to the ER. Sincerely, Anu Abdi PA-C Pending Studies at Discharge: No Stand-Alone Forms: My [employer], Smoking Cessation Medications and DC Order Prescriptions: New lisinopril 10 mg Tablet 10 mg PO QAM Qty: 30 0RF doxycycline hyclate 100 mg capsule 100 mg PO BID Qty: 5 0RF Rx Instructions: Take Twice daily with food. First dose 9/2 PM Continued omeprazole 20 mg capsule,delayed release(DR/EC) 20 mg PO DAILY Qty: 90 1RF levothyroxine 100 mcg tablet 100 mcg PO QAM Qty: 90 3RF duloxetine [Cymbalta] 30 mg capsule,delayed release(DR/EC) 30 mg PO BID Qty: 180 3RF pregabalin [Lyrica] 300 mg capsule 300 mg PO BID Qty: 180 2RF sildenafil 100 mg tablet 100 mg PO DAILY PRN (Reason: sexual activity) Qty: 10 4RF Rx Instructions: administer 30 minutes to 4 hours before activity calcium carbonate [Tums] 200 mg calcium (500 mg) tablet,chewable 200 mg PO DAILY PRN (Reason: Acid Reflux) diphenhydramine HCl [Allergy (diphenhydramine)] 25 mg capsule 50 mg PO HS omega 7-abx-mcd-fish oil [Fish Oil] 1,000 mg (120 mg-180 mg) capsule 1,200 cap PO QPM multivitamin tablet 1 tab PO QPM Rx Instructions: with iron psyllium husk [Daily Fiber] 0.4 gram capsule 0.4 g PO QPM aspirin 81 mg tablet,delayed release (DR/EC) 81 mg PO DAILY acetaminophen [Tylenol Extra Strength] 500 mg tablet 1,000 mg PO BID PRN (Reason: Pain) Rx Instructions: 1,000 mg orally BiD PRN; magnesium 250 mg Tablet 0 mg PO DAILY Discontinued lisinopril 40 mg tablet 40 mg PO QAM Qty: 90 1RF Discharge Orders: Discharge Order (Routine); Ordered 06/17/24 Ordered By: Anu Abdi Admission Data Admit Date/Time: 06/13/24 07:38 Attending Provider: Jv Tavarez Admit Provider: Radha Shipman Primary Care Provider: Diane Jauregui Other Providers: Martha Richardson; Jalen Sanchez; [facility] Other Interventions: Discharge Summary Assessment (RN) Last Done: 06/17/24 11:16 Hospital Stay Data Consultations 06/12/24 00:49 ED Decision to Admit Stat 06/14/24 07:51 Consult Pulmonology Routine Diagnostic Imagining Performed 06/13/24 18:09 CT head/brain wo con Routine 06/14/24 10:00 FL video swallow Routine Pending Results Patient Have Any Pending Studies at Discharge: No Discharge Instructions Given to Patient (Per Discharging Provider) Mr. Durant, You were recently hospitalized for experiencing shortness of breath. You were found to have pneumonia. You also are undergoing an autoimmune work up that is still pending. Please see recommendations below regarding your discharge. 1. Please take Doxycycline twice daily for the next two and a half days. Your first dose at home will be this evening 06/17 Please take with food to avoid GI upset. 2. Please use your portable oxygen at 3L while you are walking. You do not have to use it at rest. 3. Please follow up with pulmonology outpatient to continue your workup. 4. Please follow up with your PCP for a sleep study. 5. While hospitalized, your blood pressure has remained stable with a decreased dose of your Lisinopril. Please use Lisinopril 10mg once daily and monitor your blood pressure at home. This can be further discussed with your PCP at a follow up visit. Please follow up with your PCP within 1-2 weeks of discharge. If you develop any worsening shortness of breath, chest pain, fevers, or chills please report back to the ER. Sincerely, Anu Abdi PA-C Supervising Physician Co-Signing Physician Notes During face to face encounter, I obtained a brief physical examination, discussed hospital stay with patient and discharge instructions with patient. I discussed discharge plan of care with SANTI Abdi. I reviewed above note and agree with it except for the following: Patient was seen for possible bronchiolitis. Patient will complete course of doxycycline and will followup with pulmonary at discharge. Total Time Total Time Spent Total Time Spent (In Minutes): 40 Total Time Includes: Examination of the Patient, Discharge Planning and Medication Reconciliation Coding Level of Care Code 75732 INP/OBS DISCH >30 MIN Diagnoses Respiratory distress, acute R06.03 Essential tremor G25.0 Hypertension I10 Constipation K59.00
[2024-06-23 03:07] LABS: Anti Cardiolipin Ab IgG <2.0 GPL-U/mL; Anti Cardiolipin Ab IgM 4.4 MPL-U/mL; Anti Nuclear Antibody Screen NEGATIVE (NEGATIVE); Anti-Centromere Ab <1.0 NEG AI (<1.0 NEG); Anti-SS-A <1.0 NEG AI (<1.0 NEG); Anti-SS-B <1.0 NEG AI (<1.0 NEG); Chromatin Antibody <1.0 NEG AI (<1.0 NEG); Complement C3 211 mg/dL (82-185); Cyclic Citrullinated Pep IgG <16 UNITS; DNA ds Crithidia NEGATIVE (NEGATIVE); Microsomal Ab <1 IU/mL (<9); RNP Antibody <1.0 NEG AI (<1.0 NEG); Rheumatoid Factor 17 IU/mL (<14); Sm Antibody <1.0 NEG AI (<1.0 NEG)
== END 2024-06-17 12:05 | disposition home health service (06) | DRG 194 ==
LOC: EDINP 21:08 → ED 21:08 → SUATTDRO 06-12 01:33 → 2N 06-12 02:18 → SUATTDRO 06-13 07:38